=== PATIENT | female | born 1945 | race Caucasian/White ===

== ENCOUNTER 2018-11-26 01:07 | Observation (INO) | payer OTHER, BC ==
--- OUTSIDE RECORDS SUMMARY | 2018-11-26 01:10 | XMS REPORT ---
:1945 [facility] Address [address] [place] [address] Dr. Vincent [address] [place] [id number] Care Team Providers Name Role Phone Unavailable Unavailable Unavailable Problems This patient has no known problems. Allergies, Adverse Reactions, Alerts This patient has no known allergies or adverse reactions. Medications This patient has no known medications.
[2018-11-26] MEDS ORDERED: HYDROCODONE/APAP 7.5/325 MG TAB ONE (01:59)
[2018-11-26 02:09] LABS: Absolute Lymphocytes (CBC) 2.1 K/uL (0.7-4.9); Absolute Monocytes 0.5 K/uL (0.1-1.3); Absolute Neutrophil 5.9 K/uL (1.8-8.0); Eosinophils % 4.2 % (0-4.4); Hematocrit 42.2 % (36.0-45.0); Lymphocytes % 23.1 % (15.3-44.8); MPV 7.3 fL (7.6-11.3); RBC Red Blood Cell Count 4.45 M/uL (3.86-4.86)
[2018-11-26 02:23] LABS: Potassium 3.7 mmol/L (3.5-5.1)
--- NOTE | 2018-11-26 04:15 | EDPHYS ---
Physician Documentation [facility] Name: Chacha Valerio Age: 73 yrs Sex: Female : 1945 Arrival Date: 11/26/2018 Time: 01:12 Bed 8 Private MD: ED Physician Eric Aparicio HPI: 11/26 01:42 This 73 yrs old Female presents to ER via Ambulatory with complaints of Leg pkl Swelling, Leg Pain, knee swelling. 01:42 The patient presents with pain, that is acute, swelling. The complaints affect the left pkl leg. Onset: The symptoms/episode began/occurred today. Associated signs and symptoms: The patient has no apparent associated signs or symptoms. The patient has not experienced similar symptoms in the past. Historical: - Allergies: 01:32 Codeine; ed1 01:32 Levaquin; ed1 01:32 Sulfa (Sulfonamide Antibiotics); ed1 - Home Meds: 01:32 diltiazem HCl 180 mg Oral CDER 1 cap once daily [Active]; losartan-hydrochlorothiazide ed1 100-12.5 mg Oral tab 1 tab once daily [Active]; setraline 100 mg 1 tab daily [Active]; levothyroxine 25 mcg tab 1 tab once daily [Active]; lovastatin 10 mg Oral tab 1 tab once daily [Active]; metformin 850 mg Oral tab 1 tab 1 time daily [Active]; trazodone 150 mg oral tab 1 tab daily [Active]; ProAir HFA 90 mcg/actuation inhalation HFAA as needed [Active]; Advair Diskus 250-50 mcg/dose Inhl dsdv 1 puff 2 times per day [Active]; Decara 50,000 unit oral cap once a month [Active]; Citracal Oral daily [Active]; - PMHx: 01:32 Diabetes - NIDDM; Hypertension; COPD; Hypothyroidism; ed1 - PSHx: 01:32 Hysterectomy; Lumbar spine back surgery; neck surgery; breast augmentation; breast ed1 implant removal; foot surgery; - Immunization history:: Adult Immunizations up to date, Flu vaccine is up to date. - Social history:: Smoking status: Patient/guardian denies using tobacco. - Ebola Screening: : Patient negative for fever greater than or equal to 101.5 degrees Fahrenheit, and additional compatible Ebola Virus Disease symptoms Patient denies exposure to infectious person Patient denies travel to an Ebola-affected area in the 21 days before illness onset No symptoms or risks identified at this time. ROS: 01:42 Eyes: Negative for injury, pain, redness, and discharge, ENT: Negative for injury, pkl pain, and discharge, Neck: Negative for injury, pain, and swelling, Cardiovascular: Negative for chest pain, palpitations, and edema, Respiratory: Negative for shortness of breath, cough, wheezing, and pleuritic chest pain, Abdomen/GI: Negative for abdominal pain, nausea, vomiting, diarrhea, and constipation, Back: Negative for injury and pain, : Negative for injury, bleeding, discharge, and swelling. 01:42 MS/extremity: Positive for pain, swelling, of the left leg. 01:42 Skin: Negative for rash. 01:42 Neuro: Negative for altered mental status. Exam: 01:45 Head/Face: Normocephalic, atraumatic. Eyes: Pupils equal round and reactive to light, pkl extra-ocular motions intact. Lids and lashes normal. Conjunctiva and sclera are non-icteric and not injected. Cornea within normal limits. Periorbital areas with no swelling, redness, or edema. ENT: Nares patent. No nasal discharge, no septal abnormalities noted. Tympanic membranes are normal and external auditory canals are clear. Oropharynx with no redness, swelling, or masses, exudates, or evidence of obstruction, uvula midline. Mucous membranes moist. Neck: Trachea midline, no thyromegaly or masses palpated, and no cervical lymphadenopathy. Supple, full range of motion without nuchal rigidity, or vertebral point tenderness. No Meningismus. Chest/axilla: Normal chest wall appearance and motion. Nontender with no deformity. No lesions are appreciated. Cardiovascular: Regular rate and rhythm with a normal S1 and S2. No gallops, murmurs, or rubs. Normal PMI, no JVD. No pulse deficits. Respiratory: Lungs have equal breath sounds bilaterally, clear to auscultation and percussion. No rales, rhonchi or wheezes noted. No increased work of breathing, no retractions or nasal flaring. Abdomen/GI: Soft, non-tender, with normal bowel sounds. No distension or tympany. No guarding or rebound. No evidence of tenderness throughout. Back: No spinal tenderness. No costovertebral tenderness. Full range of motion. Skin: Warm, dry with normal turgor. Normal color with no rashes, no lesions, and no evidence of cellulitis. Neuro: Awake and alert, GCS 15, oriented to person, place, time, and situation. Cranial nerves II-XII grossly intact. Motor strength 5/5 in all extremities. Sensory grossly intact. Cerebellar exam normal. Normal gait. 01:45 Musculoskeletal/extremity: Extremities: grossly normal except: noted in the left leg: pain, swelling. Vital Signs: 01:32 BP 128 / 68; Pulse 103; Resp 18; Temp 98.1; Pulse Ox 94% on R/A; Pain 4/10; ed1 02:44 BP 141 / 72; Pulse 84; Resp 16; Pulse Ox 92% on R/A; Pain 4/10; ed1 04:00 BP 130 / 73; Pulse 71; Resp 16; Pulse Ox 96% on R/A; Pain 3/10; ed1 MDM: 01:19 Patient medically screened. pkl 04:13 Data reviewed: vital signs, nurses notes, lab test result(s), radiologic studies, pkl ultrasound. 11/26 01:32 Order name: CBC with Diff; Complete Time: 02:43 pkl 11/26 01:32 Order name: Chem 7; Complete Time: 02:43 pkl 11/26 01:32 Order name: D-Dimer; Complete Time: 02:43 pkl 11/26 01:37 Order name: US Extremity Venous Unilateral Ltd pkl 11/26 04:39 Order name: VENOGRAM EDMS Administered Medications: 01:51 Drug: [place] (7.5 mg-325 mg) 1 tabs Route: PO; ed1 02:45 Follow up: Response: No adverse reaction; Pain is decreased ed1 Disposition: 11/26/18 04:15 Hospitalization ordered by Yamil Cherry for Observation. Preliminary diagnosis is Acute swelling left leg. - Bed requested for Telemetry/MedSurg (observation). - Status is Observation. sv - Condition is Stable. - Problem is new. - Symptoms are unchanged. UTI on Admission? No Signatures: Dispatcher [employer] EDMS Chantel Castaneda RN RN kl Verde, Stephanie, RN RN sv Lam, Pin, MD MD pkAvani Singh RN RN Rita Holt RN RN ed1 Corrections: (The following items were deleted from the chart) 04:57 04:15 Hospitalization Ordered by Yamil Cherry MD for Observation. Preliminary fc diagnosis is Acute swelling left leg. Bed requested for Telemetry/MedSurg (observation). Status is Observation. Condition is Stable. Problem is new. Symptoms are unchanged. UTI on Admission? No. pkl 06:34 04:57 11/26/2018 04:15 Hospitalization Ordered by Yamil Cherry MD for Observation. kl Preliminary diagnosis is Acute swelling left leg. Bed requested for [facility] ER HOLD. Status is Observation. Condition is Stable. Problem is new. Symptoms are unchanged. UTI on Admission? No. fc 07:45 06:34 11/26/2018 04:15 Hospitalization Ordered by Yamil Cherry MD for Observation. sv Preliminary diagnosis is Acute swelling left leg. Bed requested for Telemetry/MedSurg (observation). Status is Observation. Condition is Stable. Problem is new. Symptoms are unchanged. UTI on Admission? No. kl
--- NOTE | 2018-11-26 04:15 | ER ---
Nurse's Notes [facility] Name: Chacha Valerio Age: 73 yrs Sex: Female : 1945 Arrival Date: 11/26/2018 Time: 01:12 Bed 8 Private MD: Diagnosis: Acute swelling left leg Presentation: 11/26 01:24 Presenting complaint: Patient states: My left leg has been aching some and we went out ed1 dancing and now it is very swollen and painful. Transition of care: patient was not received from another setting of care. Onset of symptoms was November 25, 2018. Risk Assessment: Do you want to hurt yourself or someone else? Patient reports no desire to harm self or others. Initial Sepsis Screen: Does the patient meet any 2 criteria? No. Patient's initial sepsis screen is negative. Does the patient have a suspected source of infection? No. Patient's initial sepsis screen is negative. Care prior to arrival: None. 01:24 Method Of Arrival: Ambulatory ed1 01:24 Acuity: RIAN 3 ed1 Triage Assessment: :32 General: Appears uncomfortable, Behavior is calm, cooperative. Pain: Complains of pain ed1 in left leg Pain does not radiate. Pain currently is 4 out of 10 on a pain scale. Quality of pain is described as pressure, Pain began 1 day ago. Is continuous, Aggravated by weight bearing. EENT: No signs and/or symptoms were reported regarding the EENT system. Neuro: Level of Consciousness is awake, alert, obeys commands, Oriented to person, place, time, situation, Denies weakness blurred vision dizziness, headache. Cardiovascular: Denies chest pain, Heart tones S1 S2 present. Respiratory: Airway is patent Respiratory effort is even, unlabored, Respiratory pattern is regular, symmetrical, Breath sounds are clear bilaterally. Denies cough, shortness of breath. GI: No signs and/or symptoms were reported involving the gastrointestinal system. : No signs and/or symptoms were reported regarding the genitourinary system. Derm: Skin is intact, is healthy with good turgor, Skin is pink, warm \T\ dry. Musculoskeletal: Circulation, motion, and sensation intact. Capillary refill < 3 seconds, in bilateral toes. Range of motion: intact in all extremities, Swelling present in left leg. Historical: - Allergies: 01:32 Codeine; ed1 01:32 Levaquin; ed1 01:32 Sulfa (Sulfonamide Antibiotics); ed1 - Home Meds: 01:32 diltiazem HCl 180 mg Oral CDER 1 cap once daily [Active]; losartan-hydrochlorothiazide ed1 100-12.5 mg Oral tab 1 tab once daily [Active]; setraline 100 mg 1 tab daily [Active]; levothyroxine 25 mcg tab 1 tab once daily [Active]; lovastatin 10 mg Oral tab 1 tab once daily [Active]; metformin 850 mg Oral tab 1 tab 1 time daily [Active]; trazodone 150 mg oral tab 1 tab daily [Active]; ProAir HFA 90 mcg/actuation inhalation HFAA as needed [Active]; Advair Diskus 250-50 mcg/dose Inhl dsdv 1 puff 2 times per day [Active]; Decara 50,000 unit oral cap once a month [Active]; Citracal Oral daily [Active]; - PMHx: 01:32 Diabetes - NIDDM; Hypertension; COPD; Hypothyroidism; ed1 - PSHx: 01:32 Hysterectomy; Lumbar spine back surgery; neck surgery; breast augmentation; breast ed1 implant removal; foot surgery; - Immunization history:: Adult Immunizations up to date, Flu vaccine is up to date. - Social history:: Smoking status: Patient/guardian denies using tobacco. - Ebola Screening: : Patient negative for fever greater than or equal to 101.5 degrees Fahrenheit, and additional compatible Ebola Virus Disease symptoms Patient denies exposure to infectious person Patient denies travel to an Ebola-affected area in the 21 days before illness onset No symptoms or risks identified at this time. Screenin:36 Abuse screen: Denies threats or abuse. Denies injuries from another. Nutritional ed1 screening: No deficits noted. Tuberculosis screening: No symptoms or risk factors identified. Fall Risk None identified. Assessment: 01:36 General: See triage assessment. ed1 02:44 Reassessment: Patient appears in no apparent distress at this time. No changes from ed1 previously documented assessment. Patient and/or family updated on plan of care and expected duration. Pain level reassessed. Patient is alert, oriented x 3, equal unlabored respirations, skin warm/dry/pink. 04:00 Reassessment: Patient appears in no apparent distress at this time. Patient and/or ed1 family updated on plan of care and expected duration. Pain level reassessed. Patient is alert, oriented x 3, equal unlabored respirations, skin warm/dry/pink. Patient states feeling better. Patient states symptoms have improved. Vital Signs: 01:32 BP 128 / 68; Pulse 103; Resp 18; Temp 98.1; Pulse Ox 94% on R/A; Pain 4/10; ed1 02:44 BP 141 / 72; Pulse 84; Resp 16; Pulse Ox 92% on R/A; Pain 4/10; ed1 04:00 BP 130 / 73; Pulse 71; Resp 16; Pulse Ox 96% on R/A; Pain 3/10; ed1 ED Course: 01:12 Patient arrived in ED. es 01:19 Eric Aparicio MD is Attending Physician. pkl 01:24 Rita Holt, ABBY is Primary Nurse. ed1 01:25 Triage completed. ed1 01:32 Arm band placed on. ed1 01:36 Patient has correct armband on for positive identification. Placed in gown. Bed in low ed1 position. Call light in reach. Side rails up X 1. Adult w/ patient. Pulse ox on. NIBP on. Warm blanket given. 02:30 Ultrasound completed. Patient tolerated well. Notified ED Physician clau. sg3 02:30 US Extremity Venous Unilateral Ltd In Process Unspecified. EDMS 04:00 Lights dimmed. Warm blanket given. Pillow given. ed1 04:14 Yamil Cherry MD is Hospitalizing Provider. pkl 04:28 No provider procedures requiring assistance completed. ed1 06:11 Inserted saline lock: 20 gauge in right forearm, using aseptic technique. Patient ed1 admitted, IV remains in place. intact, No redness/swelling at site. 06:56 Primary Nurse role handed off by Rita Holt, ABBY ed1 Administered Medications: 01:51 Drug: [place] (7.5 mg-325 mg) 1 tabs Route: PO; ed1 02:45 Follow up: Response: No adverse reaction; Pain is decreased ed1 Outcome: 04:15 Decision to Hospitalize by Provider. pkl 04:27 Admitted to ER Hold. Please see [facility] for further documentation. ed1 04:27 Condition: stable 04:27 Discharge instructions given to patient, family, Instructed on the need for admit, Demonstrated understanding of instructions. 07:45 Patient left the ED. sv Signatures: Dispatcher [employer] Luzma Burnette RN RN sv Lam, Pin, MD MD pkl Salyer, Edna es Riggs, Erika, RN RN ed1 Lennie Wang3
[2018-11-26] MEDS ORDERED: ACETAMINOPHEN 500 MG TAB PO PRN (05:02)
[2018-11-26] MEDS ORDERED: ONDANSETRON 4 MG/2 ML VIAL IV PRN (05:02)
[2018-11-26] MEDS ORDERED: ALBUTEROL 2.5 MG/3 ML NEB SOL NEB PRN (05:02)
[2018-11-26] MEDS ORDERED: IPRATROPIUM BROM 0.5MG/2.5ML NEB PRN (05:02)
--- NOTE | 2018-11-26 05:05 | P.HP ---
Certification for Inpatient Patient admitted to: Observation With expected LOS: <2 Midnights Practitioner: I am a practitioner with admitting privileges, knowledge of patient current condition, hospital course, and medical plan of care. Services: Services provided to patient in accordance with Admission requirements found in Title 42 Section 412.3 of the Code of Federal Regulations Patient History Date of Service: 11/26/18 Reason for admission: left leg edema History of Present Illness: Ms Valerio is a 73 years old woman with history of COPD, DM II, HTN, who last night noticed that her left leg start to be swollen. At this time, she did not have any pain. Then, she went to dance, and the leg become even more swollen. She denied pain, but has had cramps. No history of trauma. No fever or chills. She denied long trip or spent long periods of immobilization. Lab work shows normal WBC count, and elevated D-dimer. Subsequent doppler US of left leg was negative for DVT. She has never had this symptoms in the past. Allergies codeine Allergy (Unknown, Verified 09/01/16 02:48) Itching/Hives/Rash levofloxacin Allergy (Unknown, Verified 09/01/16 02:48) Itching/Hives/Rash Sulfa (Sulfonamide Antibiotics) Allergy (Unknown, Verified 09/01/16 02:48) Itching/Hives/Rash Home Medications: Albuterol Sulfate [Proair Hfa] 2 puff IH PRN PRN 09/01/16 Diltiazem HCl [Cartia Xt] 180 mg PO BEDTIME 09/01/16 Fluticasone/Salmeterol [Advair 250/50 Diskus*] 1 puff IH DAILY 09/01/16 Levothyroxine Sodium 25 mcg PO BEDTIME 09/01/16 Losartan/Hydrochlorothiazide [Losartan-Hctz 100-12.5 mg Tab] 1 tab PO BEDTIME Lovastatin 10 mg PO BEDTIME 09/01/16 Metformin HCl 850 mg PO BEDTIME 09/01/16 Sertraline [Zoloft*] 100 mg PO BEDTIME 09/01/16 Trazodone [Desyrel*] 150 mg PO BEDTIME PRN 09/01/16 Tiotropium [Spiriva Handihaler] 1 puff IH DAILY #30 cap.w.dev 09/03/16 predniSONE [Deltasone*] 10 mg PO SEECOM #11 tab 09/03/16 - Past Medical/Surgical History Diabetic: Yes -: Htn -: COPD -: hypothyroism -: NIDDM -: Bunionectomy repiar with bone graft x2 -: Spinal sx -: Articifial disc -: Breast implants removed - Family History Mother -: Diabetes Notes: alzeheimers Father -: Hypertension, Lung disease, Cancer Sister -: Other (see notes) Notes: spinal sx - Social History Smoking Status: Former smoker Alcohol use: Yes CD- Drugs: No Caffeine use: Yes Place of Residence: Home Review of Systems 10-point ROS is otherwise unremarkable Physical Examination - Physical Exam General: Alert, In no apparent distress HEENT: Atraumatic, PERRLA, Mucous membr. moist/pink, EOMI, Sclerae nonicteric Neck: Supple, 2+ carotid pulse no bruit, No LAD, Without JVD or thyroid abnormality Respiratory: Clear to auscultation bilaterally, Normal air movement Cardiovascular: Regular rate/rhythm, Normal S1 S2 Gastrointestinal: Normal bowel sounds, No tenderness Musculoskeletal: No tenderness Integumentary: No rashes, Tenderness/swelling (left leg) Neurological: Normal speech, Normal strength at 5/5 x4 extr, Normal tone, Normal affect Lymphatics: No axilla or inguinal lymphadenopathy - Studies Laboratory Data (last 24 hrs) 11/26/18 01:49: Sodium 137, Potassium 3.7, BUN 18, Creatinine 1.06, Glucose 160 H 11/26/18 01:49: WBC 8.9, Hgb 14.0, Hct 42.2, Plt Count 257 Assessment and Plan - Problems (Diagnosis) (1) Diabetes mellitus Current Visit: Yes Status: Acute Qualifiers: Diabetes mellitus type: type 2 Diabetes mellitus terminal block assembler insulin use: without terminal block assembler use Diabetes mellitus complication status: with unspecified complications Qualified Code(s): E11.8 - Type 2 diabetes mellitus with unspecified complications (2) Leg edema, left Current Visit: Yes Status: Acute (3) COPD (chronic obstructive pulmonary disease) Current Visit: Yes Status: Acute Qualifiers: COPD type: unspecified COPD Qualified Code(s): J44.9 - Chronic obstructive pulmonary disease, unspecified - Plan Will admit the patient due to left lower extremity edema. Doppler US was negative for DVT, however, she has elevated D-dimer and an intermediate pre- test for DVT. Will go ahead and order a CT venogram to definitively rule out thrombotic episode. - Advance Directives Does patient have a Living Will: No Does patient have a Durable POA for Healthcare: Yes - Code Status/Comfort Care Code Status Assessed: Yes Code Status: Full Code
[2018-11-26 05:46] VITALS: BMI 27.8
[2018-11-26] MEDS: INSULIN -REGULAR HUMAN 50 UNIT/0.5 ML ML SQ SCH ×4 (07:30→21:00)
--- NOTE | 2018-11-26 07:49 | RAD REPORT ---
EXAM DESCRIPTION: CT - Lower Ext Angio - 11/26/2018 7:00 am CLINICAL HISTORY: Left lower extremity pain with exertion COMPARISON: None. TECHNIQUE: During dynamic enhancement using nonionic IV contrast, axial 3 millimeter thick images we re obtained from the lower chest through the ankles. Sagittal and coronal reformatted images were gen erated and reviewed using maximum intensity projection protocol. The CT scan was performed using dose optimization techniques as appropriate to a performed exam incl uding one or more of the following: Automated exposure control, adjustment of the mA and/or kV accord ing to patient size (this includes techniques or standardized protocols for targeted exams where dose is matched to indication/reason for exam) and use of iterative reconstruction technique. FINDINGS: Patient has prominent infrarenal aortic atherosclerotic calcifications without aneurysm or dissection. No significant stenosis identified in the celiac, SMA or renal artery's. Atherosclerotic calcifications are present. There is mural thrombus along the posterior wall of the aorta at the jaycee al vascular level. Significant atherosclerotic changes are present at the left common iliac -external iliac artery junct ion. This is probably less than 50%. There is more significant atherosclerotic change at the origin o f the right common iliac artery estimated at 60- 70%. Atherosclerotic calcifications are present at the right side external iliac -common femoral artery ju nction with estimated 40% stenosis. The right common femoral artery, superficial femoral artery and p opliteal artery showed no abnormality. There is three-vessel runoff bifurcation at the distal poplite al artery with no calcification, stenosis or significant finding. The left common femoral, superficia l femoral and popliteal arteries also without any measurable calcification or stenosis. Trifurcation of the popliteal artery noted. Dorsalis pedis artery is difficult to identify at the ankle joint. Pos terior tibial and peroneal arteries unremarkable. No atherosclerotic change is identifiable. No extravasation of contrast. No vascular malformation. No intra muscular mass or hematoma identifiab le. Left calf musculature is edematous relative to the right side. There is subtle enlargement althou gh all the left lower extremity musculature relative to the right mid No focal abnormality seen. Ther e is edema in the subcutaneous fatty tissues of the left lower extremity from ankle joint superiorly to the upper thigh. No air, foreign body or focal finding within the subcutaneous fat of the left low er extremity. Lower lung elise show no suspicious findings. Fatty infiltration of the liver is noted. Gallbladder is absent. Bowel and solid abdominal viscera show no acute findings. No bladder abnormality seen. Extensive degenerative and postsurgical changes are present in the mid and lower lumbar spine. No acu te or pathologic bone process identifiable. Bone cyst is present in the posterior right calcaneus. IMPRESSION: No arterial occlusion, contrast extravasation or other acute arterial finding. Atherosclerotic calcifications are present at the left common iliac -external iliac artery junction e stimated at less than 50%. There is no measurable calcification, stenosis or significant vascular fin ding from the left common femoral artery through the ankle. Significant atherosclerotic calcifications causing stenosis at the origin of the right common iliac a rtery estimated at 60-70% with probable 40% stenosis at the right external iliac-common femoral arter y junction. No measurable calcification or stenosis of the right lower extremity from common femoral artery through the ankle. Left-sided calf edema and moderate congestion or edema in the subcutaneous fatty tissues of the left lower extremity from proximal thigh through the ankle. There is a more subtle overall enlargement of the entire left lower extremity skeletal musculature relative to the right. There is no intramuscular hematoma, mass or other focal left lower extremity finding. Extensive degenerative and postsurgical change in the mid and lower lumbar spine with probable centra l spinal stenosis at L3-4. Additional nonacute findings detailed in the body of the report.
--- NOTE | 2018-11-26 08:03 | RAD REPORT ---
EXAM DESCRIPTION: US - Extremity Venous Uni Ltd - 11/26/2018 2:31 am CLINICAL HISTORY: Left leg edema and pain COMPARISON: None. TECHNIQUE: Real-time sonographic evaluation of the left lower extremity deep venous system was perfo rmed. FINDINGS: Normal compressibility, flow augmentation, phasic flow and spontaneous flow are identified in the left lower extremity common femoral, superficial femoral, popliteal and posterior tibial vein s. No intraluminal filling defects seen. IMPRESSION: No DVT in the left lower extremity.
[2018-11-26] MEDS ORDERED: POTASSIUM 25 MEQ EFFERV TAB PO ONE (09:00)
[2018-11-26] MEDS ORDERED: D50W 25 GM/50 ML SYRINGE IV PRN (09:57)
[2018-11-26] MEDS ORDERED: GLUCAGON 1 MG/VIAL IM PRN (09:57)
[2018-11-26] MEDS: ENOXAPARIN 80 MG/0.8 ML SQ SCH ×2 (10:13→22:07)
[2018-11-26] MEDS: HYDROCODONE/APAP 7.5/325 MG TAB PO PRN ×3 (10:13→22:07)
[2018-11-26] MEDS ORDERED: TRAZODONE 150 MG TAB PO PRN (10:40)
--- NOTE | 2018-11-26 14:28 | CON ---
History Of Present Illness: Ms. Valerio is 73. She came to the hospital with swelling of her left l eg and the doctors immediately thought she might have a deep vein thrombosis, but an extremity venous study does not reveal a DVT. I am asked to see her because of the possibility of this being due to arterial disease. She does not have claudication. She does not have much in the way of pain, but it feels tight with the swelling. She has never had a clot before and never been diagnosed with periph eral vascular disease before. Lower extremities CT angio reveals iliac disease. It is in the 70% ra nge, not 99%. The patient was a cigarette smoker, but quit 8 months ago. She is allergic to sulfa d rugs and codeine. She takes sertraline, trazodone, Advair, metformin, lovastatin, losartan, hydrochl orothiazide, levothyroxine, diltiazem, albuterol. She has underlying COPD, diabetes, hypertension. Physical Examination: General: Height 5 feet 3 inches, weight 157 pounds. HEENT: Normal. Lungs: Clear. I do not appreciate a femoral bruit. Distal pulses are present in the left foot. Extremities: The left foot is slightly reddened. It is warm. Does not appear to be cellulitis and I would be very concerned that perhaps she has embolized the micro vessels or this is actually a DVT i n spite of the normal venous Doppler study. It is possible to miss DVT, although unlikely. Assessment And Plan: I would recommend full anticoagulation for a few days if it gets better. If not , we can proceed with an arteriogram and see if there is evidence of emboli. A CT angio did not sugg est there was significant stenosis in the femoral, popliteal, or arteries below the knee. SHANIQUA/RAY Voice ID: [id number] Report ID: [id number]
--- NOTE | 2018-11-26 16:10 | PN ---
Date of Progress Note: 11/26/2018 Patient seen and examined. Chart reviewed and case discussed with RN and Dr. Aguilera. The patient an d daughter at the bedside. Treatment plan explained. All questions answered. The patient does repor t some swelling and pain in the back of her left leg. Denies any trauma. Medications: List reviewed. Physical Examination: Vital Signs: Temperature 97.2, heart rate 80, blood pressure 136/63, respirations 18, O2 94% on room air. General: Awake, alert, oriented x3. Elderly female, in some mild distress. CV: S1, S2. Peripheral pulses in the radial artery present bilaterally. Dorsalis pedis, 2+ on the r ight, 1+ on the left. Respiratory: Clear to auscultation bilaterally. No wheezing or stridor. No use of accessory muscle s. Gastrointestinal: Abdomen is soft, nontender, nondistended. Positive bowel sounds. No guarding or r igidity. Extremities: No clubbing or cyanosis. The patient has left lower extremity unilateral edema. Does have some tenderness. Musculoskeletal: Gait is normal. Neuro: Cranial nerves 2 through 12 intact grossly. No focal neurological deficit. The patient does have some decreased sensation in the left lower extremity. Skin: No rashes. Normal skin turgor. Left lower extremity erythema. Laboratory Data: Sodium 137, potassium 3.7, chloride 103, CO2 26, BUN 18, creatinine 1.06, glucose 1 60, calcium 9.3. WBC 8.9, H and H 14 and 42.2, platelets 257. Venous Doppler shows no DVT in the le ft lower extremity. Lower extremities CT angio shows mural thrombus along the posterior wall of the aorta at the renal vascular level. Significant atherosclerotic changes at the left common iliac, ext ernal iliac artery junction, estimated less than 50%. No arterial occlusion, contract extravasation or other acute arterial finding. Significant atherosclerotic calcification causing stenosis of the or igin of the right common iliac artery estimated at 60-70 percent with probable 40% stenosis of the ri ght external iliac-common femoral artery junction. Left-sided calf edema and moderate congestion or e alexys in the subcutaneous fatty tissues of the left lower extremity from proximal thigh through the an kle. Overall enlargement of the entire left lower extremity skeletal musculature relative to the rig ht. No intramuscular hematoma, mass or other focal left extremity finding. Extensive degenerative c hanges of the lower spine and central spinal stenosis at the L3-4 level. Assessment And Plan: A 73-year-old female with: 1.Left lower extremity edema, DVT ruled out, unclear etiology. No hematoma. No arterial occlusion. Does have mural thrombus along the posterior wall of the aorta at the renal vascular level. We alexia l continue with Lovenox 1 mg/kg and have Cardiology evaluate the patient for possible angiogram and i ntervention. 2.Chronic obstructive pulmonary disease, chronic bronchitis, stable. Continue p.r.n. albuterol. 3.Diabetes mellitus type 2 with long-term use of insulin with hyperglycemia. We will hold metformin for now due to contrast. Continue sliding scale insulin. 4.Essential hypertension. Continue home medications as appropriate. 5.Hypothyroidism. Continue Synthroid. 6.Peripheral arterial disease. No significant arterial occlusions seen. We will check arterial Dop pler and neurovascular checks. GI and DVT prophylaxis addressed. GENET Voice ID: [id number] Report ID: [id number]
[2018-11-26 16:50] LABS: Urine Appearance CLEAR; Urine Bilirubin NEGATIVE (NEG); Urine Blood NEGATIVE (NEG); Urine Color YELLOW; Urine Glucose NEGATIVE (NEG); Urine Protein NEGATIVE (NEG); Urine Urobilinogen 0.2 mg/dL (0.2-1.0); Urine pH 5.5 (5.0-7.0)
[2018-11-26 16:51] LABS: Urine Microscopic Reflex ORDER UMIC
[2018-11-26 17:19] LABS: Urine Bacteria <20 /HPF (<20); Urine RBC <5 /HPF (NONE SEEN)
[2018-11-26 17:20] LABS: Urine Culture Reflex Order REFLEXED
[2018-11-26] MEDS ORDERED: DILTIAZEM HCL 180 MG SR CAP PO SCH (21:00)
[2018-11-26] MEDS ORDERED: SERTRALINE HCL 100 MG TAB PO SCH (21:00)
[2018-11-26] MEDS ORDERED: HOME MED 1 EA UNK (Lovastatin [Lovastatin] 10 MG) PO SCH (21:00)
[2018-11-26] MEDS ORDERED: HOME MED 1 EA UNK (Losartan/Hydrochlorothiazide [Losartan-Hctz 100-12.5 Mg Tab] 1 TAB) PO SCH (21:00)
[2018-11-26] MEDS ORDERED: LOSARTAN/HCTZ 50-12.5 PO SCH (21:00)
[2018-11-26] MEDS ORDERED: ATORVASTATIN 10 MG TAB PO SCH (21:00)
[2018-11-26] MEDS ORDERED: LOSARTAN POTASSIUM 50 MG TABLET PO SCH (21:00)
[2018-11-27] MEDS: HYDROCODONE/APAP 7.5/325 MG TAB PO PRN (05:42)
[2018-11-27 06:05] LABS: Absolute Lymphocytes (CBC) 2.7 K/uL (0.7-4.9); Absolute Monocytes 0.4 K/uL (0.1-1.3); Absolute Neutrophil 1.5 K/uL (1.8-8.0); Basophils % 2.1 % (0-1.3); Hematocrit 41.4 % (36.0-45.0); Lymphocytes % 51.2 % (15.3-44.8); MPV 7.6 fL (7.6-11.3); Monocytes % 8.5 % (3.3-12.3); RBC Red Blood Cell Count 4.39 M/uL (3.86-4.86)
[2018-11-27 06:29] LABS: Albumin 3.2 g/dL (3.4-5.0); Bilirubin Total 0.5 mg/dL (0.2-1.0); Magnesium 1.8 mg/dL (1.8-2.4); Potassium 4.4 mmol/L (3.5-5.1)
[2018-11-27] MEDS ORDERED: LEVOTHYROXINE SOD 0.025 MG TAB PO SCH (06:30)
[2018-11-27] MEDS: INSULIN -REGULAR HUMAN 50 UNIT/0.5 ML ML SQ SCH ×2 (07:30→11:30)
[2018-11-27] MEDS ORDERED: NA CHLORIDE 0.9% 250 ML ONE (08:29)
[2018-11-27] MEDS ORDERED: MAGNESIUM SULFATE 1 gm IVPB 1 GM/100 ML BAG IV ONE (09:00)
[2018-11-27] MEDS ORDERED: HOME MED 1 EA UNK (Fluticasone/Salmeterol [Advair 250/50 Diskus*] 2 PUFF) IH SCH (09:00)
[2018-11-27] MEDS: ENOXAPARIN 80 MG/0.8 ML SQ SCH (09:29)
[2018-11-27] MEDS ORDERED: HYDROCODONE/APAP 7.5/325 MG TAB PO ONE (09:43)
[2018-11-27] MEDS ORDERED: GABAPENTIN 100 MG CAP PO ONE (10:47)
[2018-11-27 11:00] VITALS: O2SAT 95
--- NOTE | 2018-11-27 11:57 | RAD REPORT ---
EXAM DESCRIPTION: US - Extremity Venous Uni Ltd - 11/27/2018 11:52 am CLINICAL HISTORY: DVT left lower ext, swelling, pain Leg swelling and edema. COMPARISON: Extremity Venous Uni Ltd dated 11/26/2018; Lower Ext Angio dated 11/26/2018 FINDINGS: Left lower extremity venous system was interrogated with Doppler technique. Normal flow, c ompressibility and augmentation was noted. There is no DVT present. IMPRESSION: No evidence of left lower extremity deep venous thrombosis.
[2018-11-27 12:29] VITALS: BP 120/58; TEMP 97.4
--- NOTE | 2018-11-28 03:06 | DS ---
Date of Discharge: 11/27/2018 Consultants: Rajinder Aguilera M.D., with Cardiology. Procedures: None. Discharge Diagnoses: 1. Left lower extremity edema, clinically presents as deep venous thrombosis despite negative Doppler study, improved with blood thinners. 2. Chronic obstructive pulmonary disease, chronic bronchitis, stable. 3. Diabetes mellitus type 2, with long-term use of insulin, with hyperglycemia. Hold metformin for 48 hours after contrast. 4. Essential hypertension. 5. Hypothyroidism, on Synthroid. 6. Peripheral arterial disease, lower extremities. The patient is to follow up with Dr. Aguilera for angiogram. Hospital Course: The patient is a 73-year-old female who comes in with acute onset of lower extremity edema on the left after dancing. The patient did have an elevated D-dimer. However, Doppler study was negative for DVT. Lower extremity CT angio did show significant arterial stenosis, but no arterial occlusion. The patient was neurovascularly intact. The patient was seen by Dr. Aguilera with Cardiology, who recommended outpatient angiogram for possible stenting. Overall, the patient did well. She was started on Lovenox and responded well to treatment. She does have family history of blood clots, specifically her dad who had multiple clots. She otherwise does not have any provoking factors including immobilization, recent surgery, cancer, or prolonged immobilization with long flight or car trip. The patient will be switched over to Xarelto 15 mg p.o. b.i.d. for 20 more days and switch over to 20 mg daily for 3 months. The patient is to be seen by Dr. Maxwell as outpatient. The patient will be provided contact information for Hematology for hypercoagulable workup. The patient has been counseled regarding the risks and benefits of blood thinners. She understands and at this clinical juncture, agrees to take blood thinners. Daughter is at the bedside. The patient is also given the option of Coumadin; however, does choose to be on Xarelto due to safety profile and due to lack of dietary restrictions on Xarelto. The patient was then cleared for discharge from Cardiology standpoint. She was sent home in a stable condition. Activity: As tolerated. Medications: As per medication reconciliation list. Followup: Follow up with primary care physician in 2 to 3 days. Follow up with human services worker, Dr. Maxwell, in 1 to 2 weeks. Follow up with jboss architect , Dr. Aguilera, in 2 weeks. Return to ER for worsening condition. Diet: Diabetic. Activity: As tolerated. Physical Examination: General: Awake, alert, and oriented x3. Elderly female, in no acute distress. CV: S1, S2. No murmurs. Respiratory: Moving air well bilaterally. Gastrointestinal: Abdomen is soft, nontender, and nondistended. Positive bowel sounds. Extremities: No clubbing or cyanosis. The patient does have left lower extremity edema. Neurologic: Nonfocal. Musculoskeletal: Left lower extremity is edematous, swollen, appears congested. Total time spent discharging the patient was 32 minutes. /RAY Voice ID: [id number] Report ID: [id number] MTDNelida
== END 2018-11-27 15:53 | disposition home or self-care (01) ==
LOC: ER 01:07 → ERHOLD 04:39 → 2ND 07:42
PROVIDERS: ADMIT Internal Medicine; ATTEND Internal Medicine
DX: R60.0 Localized edema (principal); J44.9 Chronic obstructive pulmonary disease, unspecified; E11.65 Type 2 diabetes mellitus with hyperglycemia; I10 Essential (primary) hypertension; E03.9 Hypothyroidism, unspecified; I73.9 Peripheral vascular disease, unspecified; Z79.4 Long term (current) use of insulin; Z88.2 Allergy status to sulfonamides
CPT/HCPCS: 36415 ×2; 73706; 80048; 80053; 80061; 82962 ×5; 83735; 84145; 85025 ×2; 85379; 86038; 87088; 93971 ×2; 99285; G0378 ×2; J1650 ×3; J3475; Q9967; 81003; 81015; 87086

== ENCOUNTER 2018-11-28 09:59 | Observation (INO) | payer OTHER, BC ==
--- OUTSIDE RECORDS SUMMARY | 2018-11-28 12:42 | XMS REPORT ---
:1945 [facility] Address [address] [place] [address] Dr. Vincent [address] [place] [id number] Care Team Providers Name Role Phone Unavailable Unavailable Unavailable Problems This patient has no known problems. Allergies, Adverse Reactions, Alerts This patient has no known allergies or adverse reactions. Medications This patient has no known medications.
[2018-11-28 12:56] VITALS: BMI 28.3
[2018-11-28] MEDS ORDERED: ONDANSETRON 4 MG/2 ML VIAL IV PRN (13:08)
[2018-11-28] MEDS ORDERED: ACETAMINOPHEN 500 MG TAB PO PRN (13:08)
[2018-11-28] MEDS ORDERED: GLUCAGON 1 MG/VIAL IM PRN (13:15)
[2018-11-28] MEDS ORDERED: D50W 25 GM/50 ML SYRINGE IV PRN (13:15)
[2018-11-28] MEDS ORDERED: ALBUTEROL INHALER 60 PUFF/8 GM IH PRN (13:16)
[2018-11-28] MEDS: ENOXAPARIN 80 MG/0.8 ML SQ SCH (13:55)
--- NOTE | 2018-11-28 15:57 | P.HP ---
Certification for Inpatient Patient admitted to: Observation With expected LOS: <2 Midnights Patient will require the following post-hospital care: None Practitioner: I am a practitioner with admitting privileges, knowledge of patient current condition, hospital course, and medical plan of care. Services: Services provided to patient in accordance with Admission requirements found in Title 42 Section 412.3 of the Code of Federal Regulations Patient History Date of Service: 11/28/18 Reason for admission: Anticoagulation History of Present Illness: The patient is a 73-year-old female Close with past medical history of diabetes , COPD, PAD who was recently admitted to the hospital and discharged on 2018 with a diagnosis of DVT and was started Xarelto. Patient was not able to afford getting anti coagulation as he was costing her over 400 dollars and thus she was admitted to the hospital for treatment of DVT with Coumadin and bridging with Lovenox. Initially patient presented to the ER during last hospitalization with acute onset of lower extremity edema on the left after dancing. The patient did have an elevated D-dimer. However, Doppler study was negative for DVT. Lower extremity CT angio did show significant arterial stenosis, but no arterial occlusion. The patient was seen by Dr. Aguilera with Cardiology, who recommended outpatient angiogram for possible stenting. She was started on Lovenox and responded well to treatment. She does have family history of blood clots, specifically her dad who had multiple clots. She otherwise does not have any provoking factors including immobilization, recent surgery, cancer, or prolonged immobilization with long flight or car trip. The patient was switched over to Xarelto. However since patient was not able to afford the prescribed medication she returned to the hospital for further treatment. Allergies levofloxacin Allergy (Severe, Verified 11/26/18 11:17) Itching/Hives/Rash sulfamethoxazole [From Bactrim] Allergy (Severe, Verified 11/26/18 11:17) Shortness of breath trimethoprim [From Bactrim] Allergy (Severe, Verified 11/26/18 11:17) Shortness of breath codeine Allergy (Unknown, Verified 09/01/16 02:48) Itching/Hives/Rash Sulfa (Sulfonamide Antibiotics) Allergy (Unknown, Verified 09/01/16 02:48) Itching/Hives/Rash Home Medications: Albuterol Sulfate [Proair Hfa] 1 puff IH Q4H PRN 11/28/18 Diltiazem HCl [Cartia Xt] 180 mg PO DAILY 11/28/18 Fluticasone/Salmeterol [Advair 250-50 Diskus] 1 each IH BID 11/28/18 Levothyroxine [Synthroid*] 0.025 mg PO DAILY 11/28/18 Losartan/Hydrochlorothiazide [Losartan-Hctz 100-12.5 mg Tab] 1 tab PO DAILY 10/04 Lovastatin 10 mg PO DAILY 11/28/18 Metformin HCl 850 mg PO DAILY 11/28/18 Sertraline [Zoloft] 100 mg PO DAILY 11/28/18 - Past Medical/Surgical History Has patient received pneumonia vaccine in the past: Yes Diabetic: Yes -: Htn -: COPD -: hypothyroism -: NIDDM -: Smoker -: Bunionectomy repair with bone graft x2 -: Spinal sx, lumbar back surgery -: Articifial disc -: Breast implants removed, breast augmentation -: hysterectomy -: colonoscopy - Family History Family History: Reviewed- Non-Contributory - Family History Mother -: Diabetes, Kidney disease, Other (see notes) Notes: alzheimers Father -: Hypertension, Lung disease, Cancer Sister -: Other (see notes) Notes: spinal sx - Social History Smoking Status: Former smoker Alcohol use: Yes CD- Drugs: No Caffeine use: Yes Place of Residence: Home Review of Systems 10-point ROS is otherwise unremarkable Physical Examination - Vital Signs Temperature: 97.6 F Blood Pressure: 134/61 Pulse: 65 Respirations: 18 Pulse Ox (%): 93 - Physical Exam General: Alert, In no apparent distress HEENT: Atraumatic, PERRLA, Mucous membr. moist/pink, EOMI, Sclerae nonicteric Neck: Supple, 2+ carotid pulse no bruit, No LAD, Without JVD or thyroid abnormality Respiratory: Clear to auscultation bilaterally, Normal air movement Cardiovascular: Regular rate/rhythm, Normal S1 S2 Gastrointestinal: Normal bowel sounds, No tenderness Musculoskeletal: No tenderness Integumentary: No rashes Neurological: Normal gait, Normal speech, Normal strength at 5/5 x4 extr, Normal tone, Normal affect Lymphatics: No axilla or inguinal lymphadenopathy Assessment and Plan - Problems (Diagnosis) (1) DVT (deep venous thrombosis) Current Visit: Yes Status: Acute Plan: Suspected left lower leg DVT. -initial ultrasound negative for DVT. -cardiology consulted. Appreciated recommendations -highly suspicious of DVT given the CTA results and clinical picture -start on anti coagulation. -patient currently not able to afford the newer drugs. -will bridge with Lovenox and start patient on Coumadin -will check INR Qualifiers: DVT location: lower extremity Affected thrombotic vein of extremity: unspecified lower extremity proximal vein Chronicity: acute Laterality: left Qualified Code(s): I82.4Y2 - Acute embolism and thrombosis of unspecified deep veins of left proximal lower extremity (2) COPD (chronic obstructive pulmonary disease) Current Visit: No Status: Chronic Qualifiers: COPD type: chronic bronchitis Chronic bronchitis type: mixed simple and mucopurulent Qualified Code(s): J41.8 - Mixed simple and mucopurulent chronic bronchitis (3) Diabetes mellitus Current Visit: No Status: Chronic Qualifiers: Diabetes mellitus type: type 2 Diabetes mellitus termite exterminator helper insulin use: without senior living use Diabetes mellitus complication status: without complication Qualified Code(s): E11.9 - Type 2 diabetes mellitus without complications Discharge Plan: Home Plan to discharge in: 48 Hours - Advance Directives Does patient have a Living Will: Yes Does patient have a Durable POA for Healthcare: Yes - Code Status/Comfort Care Code Status Assessed: Yes Critical Care: No
[2018-11-28] MEDS: INSULIN -REGULAR HUMAN 50 UNIT/0.5 ML ML SQ SCH ×2 (16:30→21:00)
[2018-11-28] MEDS: WARFARIN SODIUM 2.5 MG TAB PO SCH (16:39)
[2018-11-28] MEDS ORDERED: MORPHINE 4 MG/ML SYR IV PRN (19:17)
[2018-11-28] MEDS: HOME MED 1 EA UNK (Fluticasone/Salmeterol [Advair 250-50 Diskus] 1 EACH) IH SCH (21:00)
[2018-11-28] MEDS: ATORVASTATIN 10 MG TAB PO SCH (21:21)
[2018-11-28] MEDS: HYDROCODONE/APAP 7.5/325 MG TAB PO PRN (22:34)
[2018-11-28] MEDS: TRAZODONE 150 MG TAB PO PRN (22:34)
[2018-11-29] MEDS: HYDROCODONE/APAP 7.5/325 MG TAB PO PRN ×4 (04:11→22:23)
[2018-11-29 04:38] LABS: Protime INR 0.9
[2018-11-29 04:51] LABS: Albumin 3.6 g/dL (3.4-5.0); Bilirubin Total 0.3 mg/dL (0.2-1.0); Phosphorus 4.3 mg/dL (2.5-4.9); Potassium 4.8 mmol/L (3.5-5.1); Protein, Total 6.5 g/dL (6.4-8.2)
[2018-11-29 04:59] LABS: Absolute Lymphocytes (CBC) 2.8 K/uL (0.7-4.9); Absolute Monocytes 0.5 K/uL (0.1-1.3); Absolute Neutrophil 2.1 K/uL (1.8-8.0); Basophils % 2.7 % (0-1.3); Eosinophils % 8.1 % (0-4.4); Hematocrit 43.7 % (36.0-45.0); Lymphocytes % 46.6 % (15.3-44.8); MPV 7.7 fL (7.6-11.3); Monocytes % 7.5 % (3.3-12.3); RBC Red Blood Cell Count 4.62 M/uL (3.86-4.86)
[2018-11-29] MEDS: LEVOTHYROXINE SOD 0.025 MG TAB PO SCH (05:37)
[2018-11-29] MEDS: ENOXAPARIN 80 MG/0.8 ML SQ SCH ×2 (05:40→17:17)
[2018-11-29] MEDS: INSULIN -REGULAR HUMAN 50 UNIT/0.5 ML ML SQ SCH ×4 (07:30→21:00)
[2018-11-29] MEDS: HOME MED 1 EA UNK (Fluticasone/Salmeterol [Advair 250-50 Diskus] 1 EACH) IH SCH ×2 (08:13→21:00)
[2018-11-29] MEDS ORDERED: DILTIAZEM HCL 180 MG SR CAP PO SCH (09:00)
[2018-11-29] MEDS ORDERED: hydroCHLOROthiazide 12.5 MG CAP PO SCH (09:00)
[2018-11-29] MEDS ORDERED: HOME MED 1 EA UNK (Losartan/Hydrochlorothiazide [Losartan-Hctz 100-12.5 Mg Tab] 1 TAB) PO SCH (09:00)
[2018-11-29] MEDS ORDERED: SERTRALINE HCL 100 MG TAB PO SCH (09:00)
[2018-11-29] MEDS ORDERED: LOSARTAN POTASSIUM 50 MG TABLET PO SCH (09:00)
[2018-11-29] MEDS: WARFARIN SODIUM 2.5 MG TAB PO SCH (16:09)
--- NOTE | 2018-11-29 18:00 | P.PN ---
Subjective Date of Service: 11/29/18 Chief Complaint: Anticoagulation Patient seen and examined at bedside with RN. Chart reviewed. Case discussed with patient in case management at bedside. Review of Systems 10-point ROS is otherwise unremarkable Physical Examination - Vital Signs Temperature: 97.6 F Blood Pressure: 112/51 Pulse: 67 Respirations: 18 Pulse Ox (%): 96 - Physical Exam General: Alert, In no apparent distress HEENT: Atraumatic, PERRLA, EOMI Neck: Supple, JVD not distended Respiratory: Clear to auscultation bilaterally, Normal air movement Cardiovascular: Regular rate/rhythm, Normal S1 S2 Gastrointestinal: Normal bowel sounds, No tenderness Musculoskeletal: No tenderness Integumentary: No rashes Neurological: Normal speech, Normal tone, Normal affect Lymphatics: No axilla or inguinal lymphadenopathy - Studies Laboratory Data (last 24 hrs) 11/29/18 04:10: PT 10.7, INR 0.90, APTT 33.0 11/29/18 04:10: Sodium 143, Potassium 4.8, BUN 17, Creatinine 1.06, Glucose 129 H, Phosphorus 4.3, Magnesium 2.0, Total Bilirubin 0.3, AST 17, ALT 23, Alkaline Phosphatase 67 11/29/18 04:10: WBC 6.0 D, Hgb 14.5, Hct 43.7, Plt Count 266 Medications List Reviewed: Yes Assessment And Plan - Current Problems (Diagnosis) (1) DVT (deep venous thrombosis) Onset Date: 11/29/18 Current Visit: Yes Status: Acute Plan: Suspected left lower leg DVT. -initial ultrasound negative for DVT. -cardiology consulted. Appreciated recommendations -highly suspicious of DVT given the CTA results and clinical picture -start on anti coagulation. -patient currently not able to afford the newer drugs. -On Lovenox and patient on Coumadin -INR subtherapeutic today Qualifiers: DVT location: lower extremity Affected thrombotic vein of extremity: unspecified lower extremity proximal vein Chronicity: acute Laterality: left Qualified Code(s): I82.4Y2 - Acute embolism and thrombosis of unspecified deep veins of left proximal lower extremity (2) COPD (chronic obstructive pulmonary disease) Current Visit: No Status: Chronic Qualifiers: COPD type: chronic bronchitis Chronic bronchitis type: mixed simple and mucopurulent Qualified Code(s): J41.8 - Mixed simple and mucopurulent chronic bronchitis (3) Diabetes mellitus Current Visit: No Status: Chronic Qualifiers: Diabetes mellitus type: type 2 Diabetes mellitus fpc insulin use: without regional planner use Diabetes mellitus complication status: without complication Qualified Code(s): E11.9 - Type 2 diabetes mellitus without complications Discharge Plan: Home Plan to discharge in: 48 Hours - Code Status/Comfort Care Code Status Assessed: Yes Critical Care: No
[2018-11-29] MEDS: SERTRALINE HCL 100 MG TAB PO SCH (22:22)
[2018-11-29] MEDS: hydroCHLOROthiazide 12.5 MG CAP PO SCH (22:22)
[2018-11-29] MEDS: TRAZODONE 150 MG TAB PO PRN (22:24)
[2018-11-29] MEDS: LOSARTAN POTASSIUM 50 MG TABLET PO SCH (22:24)
[2018-11-29] MEDS: ATORVASTATIN 10 MG TAB PO SCH (22:25)
[2018-11-29] MEDS: DILTIAZEM HCL 180 MG SR CAP PO SCH (22:25)
[2018-11-30] MEDS: HYDROCODONE/APAP 7.5/325 MG TAB PO PRN ×3 (05:32→18:06)
[2018-11-30] MEDS: ENOXAPARIN 80 MG/0.8 ML SQ SCH ×2 (05:32→17:54)
[2018-11-30] MEDS: LEVOTHYROXINE SOD 0.025 MG TAB PO SCH (05:32)
[2018-11-30 05:52] LABS: Albumin 3.5 g/dL (3.4-5.0); Bilirubin Total 0.2 mg/dL (0.2-1.0); Magnesium 1.9 mg/dL (1.8-2.4); Phosphorus 4.5 mg/dL (2.5-4.9); Potassium 4.9 mmol/L (3.5-5.1); Protein, Total 6.3 g/dL (6.4-8.2)
[2018-11-30 05:54] LABS: Absolute Lymphocytes (CBC) 2.7 K/uL (0.7-4.9); Absolute Monocytes 0.5 K/uL (0.1-1.3); Absolute Neutrophil 1.9 K/uL (1.8-8.0); Basophils % 2.4 % (0-1.3); Hematocrit 43.2 % (36.0-45.0); Lymphocytes % 47.1 % (15.3-44.8); MPV 7.5 fL (7.6-11.3); Monocytes % 9.1 % (3.3-12.3); RBC Red Blood Cell Count 4.52 M/uL (3.86-4.86)
[2018-11-30 05:57] LABS: Protime INR 0.89
[2018-11-30] MEDS: INSULIN -REGULAR HUMAN 50 UNIT/0.5 ML ML SQ SCH ×4 (07:30→21:00)
[2018-11-30] MEDS: HOME MED 1 EA UNK (Fluticasone/Salmeterol [Advair 250-50 Diskus] 1 EACH) IH SCH ×2 (09:00→21:00)
[2018-11-30 09:55] LABS: Blood Morphology Comment NOT SEEN (NOT SEEN); Platelet Estimate ADEQ; Urine White Blood Cell Casts DIFF
--- NOTE | 2018-11-30 16:38 | P.PN ---
Subjective Date of Service: 11/30/18 Chief Complaint: Anticoagulation Patient seen and examined at bedside with RN. Chart reviewed. Case discussed with patient in case management at bedside. Patient was going to be discharged home today however started complaining of having some chest pain. EKG was done which was consistent with first-degree AV block. Cardiology was thus we consulted and echocardiogram was ordered. Review of Systems 10-point ROS is otherwise unremarkable Physical Examination - Vital Signs Temperature: 97.9 F Blood Pressure: 130/63 Pulse: 70 Respirations: 18 Pulse Ox (%): 96 - Physical Exam General: Alert, In no apparent distress HEENT: Atraumatic, PERRLA, EOMI Neck: Supple, JVD not distended Respiratory: Clear to auscultation bilaterally, Normal air movement Cardiovascular: Regular rate/rhythm, Normal S1 S2 Gastrointestinal: Normal bowel sounds, No tenderness Musculoskeletal: No tenderness Integumentary: No rashes Neurological: Normal speech, Normal tone, Normal affect Lymphatics: No axilla or inguinal lymphadenopathy - Studies Laboratory Data (last 24 hrs) 11/30/18 11:47: Troponin I < 0.02 11/30/18 04:56: PT 10.6, INR 0.89, APTT 36.4 11/30/18 04:56: Sodium 144, Potassium 4.9, BUN 19 H, Creatinine 0.95, Glucose 110 H, Phosphorus 4.5, Magnesium 1.9, Total Bilirubin 0.2, AST 29, ALT 36, Alkaline Phosphatase 66 11/30/18 04:56: WBC 5.6, Hgb 14.4, Hct 43.2, Plt Count 289 Medications List Reviewed: Yes Assessment And Plan - Current Problems (Diagnosis) (1) DVT (deep venous thrombosis) Onset Date: 11/29/18 Current Visit: Yes Status: Acute Plan: Suspected left lower leg DVT. -initial ultrasound negative for DVT. -cardiology consulted. Appreciated recommendations -highly suspicious of DVT given the CTA results and clinical picture -start on anti coagulation. -patient currently not able to afford the newer drugs. -On Lovenox and patient on Coumadin -INR still subtherapeutic today. 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 (3) Diabetes mellitus Current Visit: No Status: Chronic Qualifiers: Diabetes mellitus type: type 2 Diabetes mellitus exterminator helper insulin use: without correction use Diabetes mellitus complication status: without complication Qualified Code(s): E11.9 - Type 2 diabetes mellitus without complications - Plan Pending clinical improvement at this time. Patient complaining of having chest pain. Troponin x1 negative. EKG with first-degree AV block. Echocardiogram pending at this time and cardiology consult Roxy pending at this time. Will continue to monitor patient recheck INR for therapeutic level. Warfarin has been increased today to 5 mg. Discharge Plan: Home Plan to discharge in: 48 Hours - Code Status/Comfort Care Code Status Assessed: Yes Critical Care: No
--- NOTE | 2018-11-30 16:59 | EKG ---
Test Date: 2018-11-30 Test Time: 12:00:43 Livestock Yard Attendant: GILMER MEASUREMENT RESULTS: Intervals: Rate: 62 MT: 216 QRSD: 80 QT: 396 QTc: 401 [place]: P: 69 MT: 216 QRS: 43 T: 46 INTERPRETIVE STATEMENTS: Sinus rhythm with 1st degree AV block Otherwise normal ECG Compared to ECG 09/01/2016 07:42:13 First degree AV block now present Sinus tachycardia no longer present Myocardial infarct finding no longer present Electronically Signed On 11-30-18 16:58:47 EQUIPMENT OPERATOR/LABORER by Rajinder Aguilera
--- NOTE | 2018-11-30 17:06 | ECHO ---
HEIGHT: 5 ft 3 in WEIGHT: 159 lb 9.6 oz DATE OF STUDY: 11/30/[address]: Michelle Baum MD 2-DIMENSIONAL: YES M.MODE: YES DOPPLER: YES COLOR FLOW: YES TDS: PORTABLE: DEFINITY: BUBBLE STUDY: DIAGNOSIS: CHEST PAIN CARDIAC HISTORY: CATHERIZATION: NO SURGERY: NO PROSTHETIC VALVE: NO PACEMAKER: NO MEASUREMENTS (cm) DIASTOLIC (NORMALS) SYSTOLIC (NORMALS) IVSd 1.0 (0.6-1.2) LA Diam 2.8 (1.9-4.0) LVEF 69% LVIDd 4.0 (3.5-5.7) LVIDs 2.5 (2.0-3.5) %FS 38% LVPWd 1.0 (0.6-1.2) Ao Diam 2.8 (2.0-3.7) 2 DIMENSIONAL ASSESSMENT: RIGHT ATRIUM: NORMAL LEFT ATRIUM: NORMAL RIGHT VENTRICLE: NORMAL LEFT VENTRICLE: NORMAL TRICUSPID VALVE: NORMAL MITRAL VALVE: NORMAL PULMONIC VALVE: NORMAL AORTIC VALVE: NORMAL PERICARDIAL EFFUSION: NONE AORTIC ROOT: NORMAL LEFT VENTRICULAR WALL MOTION: NORMAL DOPPLER/COLOR FLOW: NORMAL COMMENTS: NORMAL TWO DIMENSIONAL ECHOCARDIOGRAM WITH DOPPLER. TECHNOLOGIST: ROSS BRANTLEY
[2018-11-30] MEDS ORDERED: WARFARIN SODIUM 5 MG TAB PO SCH (18:00)
[2018-11-30] MEDS: DILTIAZEM HCL 180 MG SR CAP PO SCH (22:04)
[2018-11-30] MEDS: hydroCHLOROthiazide 12.5 MG CAP PO SCH (22:05)
[2018-11-30] MEDS: ATORVASTATIN 10 MG TAB PO SCH (22:05)
[2018-11-30] MEDS: SERTRALINE HCL 100 MG TAB PO SCH (22:06)
[2018-11-30] MEDS: LOSARTAN POTASSIUM 50 MG TABLET PO SCH (22:07)
[2018-11-30] MEDS: TRAZODONE 150 MG TAB PO PRN (22:12)
--- NOTE | 2018-11-30 22:17 | CON ---
CARDIOLOGY CONSULTATION History: Ms. Valerio has swelling in her legs. There is some arterial vascular disease, but we thin k it is a DVT, probably beyond where the venous ultrasound looks. She also reports having intermitte nt chest pain and that is why I am asked to visit with her again. She is really improving on anticoa gulant therapy, although we do not have any imaging that proved she actually has a DVT. Social History: She was a cigarette smoker, but quit 3 years ago. Diagnostic Data: A nuclear stress test was normal. An echocardiogram today is normal. Physical Examination: Vital signs: Height 5 feet 3 inches, weight 159 pounds. HEENT: Normal. Lungs: Clear. Cardiac: Exam within normal limits. Assessment And Plan: I will recommend that she do a nuclear stress test tomorrow. We will see if th ere is any sign of ischemic heart disease and decide what to do about it. I would ask the attending physician to consider an MRA of the pelvis to see if there is an underlying deep vein thrombosis in t he pelvis. Thank you very much for your kind referral of Ms. Valerio. I will follow her with you. SHANIQUA/RAY Voice ID: [id number] Report ID: [id number]
[2018-12-01] MEDS: HYDROCODONE/APAP 7.5/325 MG TAB PO PRN ×2 (02:13→08:24)
[2018-12-01] MEDS: LEVOTHYROXINE SOD 0.025 MG TAB PO SCH (05:41)
[2018-12-01] MEDS: ENOXAPARIN 80 MG/0.8 ML SQ SCH (05:42)
[2018-12-01 07:13] LABS: Albumin 3.6 g/dL (3.4-5.0); Bilirubin Total 0.2 mg/dL (0.2-1.0); Magnesium 1.9 mg/dL (1.8-2.4); Phosphorus 4.7 mg/dL (2.5-4.9); Protein, Total 6.3 g/dL (6.4-8.2)
[2018-12-01 07:14] LABS: Absolute Lymphocytes (CBC) 2.2 K/uL (0.7-4.9); Absolute Monocytes 0.4 K/uL (0.1-1.3); Absolute Neutrophil 1.6 K/uL (1.8-8.0); Hematocrit 42.3 % (36.0-45.0); Lymphocytes % 46.4 % (15.3-44.8); Monocytes % 9.2 % (3.3-12.3); RBC Red Blood Cell Count 4.45 M/uL (3.86-4.86)
[2018-12-01 07:17] LABS: Protime INR 0.95
[2018-12-01] MEDS: INSULIN -REGULAR HUMAN 50 UNIT/0.5 ML ML SQ SCH ×2 (07:30→11:30)
[2018-12-01] MEDS: HOME MED 1 EA UNK (Fluticasone/Salmeterol [Advair 250-50 Diskus] 1 EACH) IH SCH (08:25)
[2018-12-01 08:46] LABS: Platelet Estimate ADEQ; Urine White Blood Cell Casts DIFF
[2018-12-01 08:47] LABS: Blood Morphology Comment NOT SEEN (NOT SEEN)
[2018-12-01] MEDS ORDERED: REGADENOSON 0.4 MG/5 ML SYR IV ONE (09:57)
[2018-12-01 12:19] VITALS: BP 113/56; TEMP 96.2
--- NOTE | 2018-12-01 13:39 | RAD REPORT ---
EXAM DESCRIPTION: NM - Rest Stress Cardiac Imaging - 12/01/2018 1:28 pm CLINICAL HISTORY: Chest pain COMPARISON: None. TECHNIQUE: The patient was administered approximately 10 mCi of Tc 99m Sestamibi prior to resting SP ECT imaging of the heart. The patient was then administered approximately 30 mCi of Tc 99m Sestamibi following exercise or pharmacologic stress. Multiplanar SPECT images were reviewed. FINDINGS: The end diastolic volume is 77 ml, the end systolic volume is 26 ml, and the ejection frac tion is 66 %. No stress-induced ischemic change identifiable. Moderately large area diminished activity involves th e inferior wall mid in apex portion. This is unchanged between rest and stress imaging. This may refl ect diaphragmatic attenuation artifact, scarring or a combination. No other areas of possible scarrin g. IMPRESSION: No stress-induced ischemic change. Moderate fixed defect inferior wall mid in apex portion could be attenuation artifact, scarring or a combination. Ventricular volumes and ejection fraction are well within normal limits.
[2018-12-01 14:51] VITALS: O2SAT 96
--- NOTE | 2018-12-01 16:45 | TREADPHA ---
DX: CHEST PAIN Date of Study: 12/01/2018 Ht: 5 3 Wt: 159 lb 9.6 oz Consulting Physician: WOLF MEDICATIONS: TYLENOL, NORCO, LIPITOR, DEXTROSE, LOVENOX, GLUCAGEN. HISTORY: 73 YEAR FEMALE. COMPLAINTS OF CHEST PAIN. HISTORY: HYPERTENSION, HYPOTHYROIDISM, NIDDM, SPINE SX, BLOOD CLOT- LOWER EXTREMETY. PHYSICIAL EXAMINATION: RESTING B.P.: 118/69 RESTING H.R.: 63 RESTING EKG: NORMAL PROTOCOL: LEXISCAN EXERCISE TIME: 3:30 B.P. AT PEAK STRESS: 125/61 IMPRESSION: LEXISCAN INJECTED, FOLLOWED BY CARDIOLITE PER PROTOCOL, SEE NUCLEAR MEDICINE REPORT. NO SUPRAVENTRIULCAR TACHYCARDIA. NO VENTRICULAR TACHYCARDIA. NO PREMATURE ATRIAL COMPLEXS. NO PREMATURE VENTRICULAR COMPLEXS. PATIENT REPORTED NO CHEST PAIN, OR TIGHTNESS THROUGHOUT PROCEDURE, OR IN RECOVERY.
--- NOTE | 2018-12-01 18:50 | P.DS ---
Admission Date: 11/28/18 Discharge Date: 12/01/18 Discharge Condition: FAIR Reason for Admission: Anticoagulation - Problems (1) DVT (deep venous thrombosis) Onset Date: 11/29/18 Status: Acute Qualifiers: DVT location: lower extremity Affected thrombotic vein of extremity: unspecified lower extremity proximal vein Chronicity: acute Laterality: left Qualified Code(s): I82.4Y2 - Acute embolism and thrombosis of unspecified deep veins of left proximal lower extremity (2) Leg edema, left Status: Acute Brief History of Present Illness: [facility] Course: - Current Problems (Diagnosis) (1) DVT (deep venous thrombosis) Onset Date: 11/29/18 Current Visit: Yes Status: Acute Plan: Suspected left lower leg DVT. -initial ultrasound negative for DVT. -cardiology consulted. Appreciated recommendations -highly suspicious of DVT given the CTA results and clinical picture -start on anti coagulation. -patient currently not able to afford the newer drugs. -On Lovenox and patient on Coumadin -INR still subtherapeutic today. 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 (3) Diabetes mellitus Current Visit: No Status: Chronic Qualifiers: Diabetes mellitus type: type 2 Diabetes mellitus medical diagnostic radiographer insulin use: without medical diagnostic radiographer use Diabetes mellitus complication status: without complication Qualified Code(s): E11.9 - Type 2 diabetes mellitus without complications Vital Signs/Physical Exam: Temp Pulse Resp BP Pulse Ox 96.2 F L 56 18 113/56 L 93 12/01/18 12:00 12/01/18 12:00 12/01/18 12:00 12/01/18 12:00 12/01/18 12:00 General: Alert, Oriented x3 HEENT: Atraumatic, Normocephalic, PERRLA Neck: Supple, JVD not distended Respiratory: Clear to auscultation bilaterally, Normal air movement Cardiovascular: No edema, Normal pulses, Regular rate/rhythm, Normal S1 S2 Gastrointestinal: Normal bowel sounds, Soft and benign, Non-distended Musculoskeletal: No clubbing, No swelling Integumentary: No rashes Neurological: Normal strength at 5/5 x4 extr Laboratory Data at Discharge: WBC 4.7 K/uL (4.3-10.9) D 12/01/18 06:20 Hgb 14.0 g/dL (12.0-15.0) 12/01/18 06:20 Hct 42.3 % (36.0-45.0) 12/01/18 06:20 Plt Count 267 K/uL (152-406) 12/01/18 06:20 PT 11.2 SECONDS (9.5-12.5) 12/01/18 06:20 INR 0.95 12/01/18 06:20 APTT 42.7 SECONDS (24.3-36.9) H 12/01/18 06:20 Sodium 143 mmol/L (136-145) 12/01/18 06:20 Potassium 4.0 mmol/L (3.5-5.1) 12/01/18 06:20 BUN 19 mg/dL (7-18) H 12/01/18 06:20 Creatinine 0.89 mg/dL (0.55-1.3) 12/01/18 06:20 Glucose 107 mg/dL (74-106) H 12/01/18 06:20 Phosphorus 4.7 mg/dL (2.5-4.9) 12/01/18 06:20 Magnesium 1.9 mg/dL (1.8-2.4) 12/01/18 06:20 Total Bilirubin 0.2 mg/dL (0.2-1.0) 12/01/18 06:20 AST 51 U/L (15-37) H 12/01/18 06:20 ALT 55 U/L (12-78) 12/01/18 06:20 Alkaline Phosphatase 64 U/L (45-117) 12/01/18 06:20 Troponin I < 0.02 ng/mL (0.0-0.045) 11/30/18 11:47 Home Medications: Albuterol Sulfate [Proair Hfa] 1 puff IH Q4H PRN 11/28/18 Diltiazem HCl [Cartia Xt] 180 mg PO DAILY 11/28/18 Fluticasone/Salmeterol [Advair 250-50 Diskus] 1 each IH BID 11/28/18 Levothyroxine [Synthroid*] 0.025 mg PO DAILY 11/28/18 Losartan/Hydrochlorothiazide [Losartan-Hctz 100-12.5 mg Tab] 1 tab PO DAILY 10/04 Lovastatin 10 mg PO DAILY 11/28/18 Metformin HCl 850 mg PO DAILY 11/28/18 Sertraline [Zoloft*] 100 mg PO DAILY 11/28/18 Enoxaparin Sodium [Lovenox] 80 mg SQ BID #10 ml 11/30/18 Warfarin Sodium [Coumadin*] 5 mg PO DAILY 5 PM #60 tab 11/30/18 New Medications: Enoxaparin Sodium [Lovenox] 80 mg SQ BID #10 ml Warfarin Sodium [Coumadin*] 5 mg PO DAILY 5 PM #60 tab Patient Discharge Instructions: f/up with coumadin clinic on tuesday12/04/18. f/ up with pcp for continuation of care Diet: ADA Activity: Ad mayra Followup: Rajinder Aguilera MD [ACTIVE - CAN ADMIT] - Kate Brown MD [Primary Care Provider] - 1 Week (call to schedule appointment)
--- NOTE | 2018-12-02 11:28 | PN ---
Date of Progress Note: 12/01/2018 The patient was admitted with a possible DVT, negative venous Doppler, seen by Dr. Aguilera. She was a dmitted to Dr. Baum's service. She has peripheral arterial disease with about a 70% iliac stenosis, but no stenosis below that. She has no claudication. She is on Lovenox right now. She had a claude l echocardiogram. She probably should be treated with Xarelto as an outpatient. No claudication. I f she has symptoms of claudication, we will do an angiography on her. No plans to do so for now. A Lexiscan that was ordered today was normal. She can go home as far as we are concerned. We will see her in the office in the next 2 weeks. DEVON/RAY Voice ID: [id number] Report ID: [id number]
== END 2018-12-01 15:58 | disposition home or self-care (01) ==
LOC: 4TH 12:34 → INTOOBSV 12:34
PROVIDERS: ADMIT Family Medicine; ATTEND Family Medicine
DX: R60.0 Localized edema (principal); I73.9 Peripheral vascular disease, unspecified; J44.9 Chronic obstructive pulmonary disease, unspecified; E11.9 Type 2 diabetes mellitus without complications; Z88.2 Allergy status to sulfonamides; I10 Essential (primary) hypertension
CPT/HCPCS: 36415 ×3; 78452; 80053 ×3; 82962 ×12; 83735 ×3; 84100 ×3; 84484; 85025 ×3; 85610 ×3; 85730 ×3; 93005; 93017; 93306; A9500; G0378; G0379; J1650 ×6; J2785

== ENCOUNTER 2018-12-24 21:43 | Emergency (ER) | payer OTHER, BC ==
--- OUTSIDE RECORDS SUMMARY | 2018-12-24 21:46 | XMS REPORT ---
:1945 [facility] Address [address] [place] [address] Dr. Vincent [address] [place] [id number] Care Team Providers Name Role Phone Unavailable Unavailable Unavailable Problems This patient has no known problems. Allergies, Adverse Reactions, Alerts This patient has no known allergies or adverse reactions. Medications This patient has no known medications.
[2018-12-24 23:36] LABS: Absolute Lymphocytes (CBC) 2.5 K/uL (0.7-4.9); Absolute Monocytes 0.6 K/uL (0.1-1.3); Absolute Neutrophil 3.7 K/uL (1.8-8.0); Basophils % 1.3 % (0-1.3); Eosinophils % 4.3 % (0-4.4); Hematocrit 39.2 % (36.0-45.0); Lymphocytes % 35.5 % (15.3-44.8); MPV 7.4 fL (7.6-11.3); Monocytes % 7.7 % (3.3-12.3); RBC Red Blood Cell Count 4.29 M/uL (3.86-4.86)
[2018-12-24 23:42] LABS: Protime INR 1.17
[2018-12-25] LABS: Bilirubin Total 0.4 mg/dL (0.2-1.0); Potassium 3.6 mmol/L (3.5-5.1); Protein, Total 6.8 g/dL (6.4-8.2)
--- NOTE | 2018-12-25 01:30 | ER ---
Nurse's Notes [facility] Name: Chacha Valerio Age: 73 yrs Sex: Female : 1945 Arrival Date: 12/24/2018 Time: 21:44 Bed 6 Private MD: Diagnosis: Cellulitis and acute lymphangitis of other sites Presentation: 12/24 22:47 Presenting complaint: Patient states: redness, knot, heat and pain to right elbow ak1 sudden onset tonight. pt discharged from hospital 12/01 dx DVT to left leg. Transition of care: patient was not received from another setting of care. Onset of symptoms was December 24, 2018. Risk Assessment: Do you want to hurt yourself or someone else? Patient reports no desire to harm self or others. Initial Sepsis Screen: Does the patient meet any 2 criteria? No. Patient's initial sepsis screen is negative. Does the patient have a suspected source of infection? No. Patient's initial sepsis screen is negative. Care prior to arrival: None. 22:47 Method Of Arrival: Ambulatory ak1 22:47 Acuity: RIAN 3 ak1 Triage Assessment: 22:52 General: Appears in no apparent distress. Behavior is calm, cooperative. Pain: ak1 Complains of pain in right elbow. EENT: No signs and/or symptoms were reported regarding the EENT system. Neuro: No deficits noted. Cardiovascular: No deficits noted. Respiratory: No deficits noted. GI: No signs and/or symptoms were reported involving the gastrointestinal system. : No signs and/or symptoms were reported regarding the genitourinary system. Derm: Skin is red, Skin temperature is warm. Musculoskeletal: No signs and/or symptoms reported regarding the musculoskeletal system. Historical: - Allergies: 22:52 Codeine; ak1 22:52 Levaquin; ak1 22:52 Sulfa (Sulfonamide Antibiotics); ak1 - Home Meds: 22:52 Advair Diskus 250-50 mcg/dose Inhl dsdv 1 puff 2 times per day [Active]; Citracal Oral ak1 daily [Active]; Decara 50,000 unit Oral cap once a month [Active]; diltiazem HCl 180 mg Oral CDER 1 cap once daily [Active]; levothyroxine 25 mcg tab 1 tab once daily [Active]; losartan-hydrochlorothiazide 100-12.5 mg Oral tab 1 tab once daily [Active]; lovastatin 10 mg Oral tab 1 tab once daily [Active]; metformin 850 mg Oral tab 1 tab 1 time daily [Active]; [place] 5-325 mg Oral tab 1 tab every 4 hours [Active]; proair [Active]; ProAir HFA 90 mcg/actuation inhalation HFAA as needed [Active]; setraline 100 mg 1 tab daily [Active]; tramadol 50 mg Oral tab 1 tab every 4-6 hours [Active]; trazodone 150 mg Oral tab 1 tab daily [Active]; 22:57 Lovenox 80 mg/0.8 mL Sub-Q syrg every 12 hours [Active]; warfarin 2.5 mg Oral tab ak1 [Active]; - PMHx: 22:52 COPD; Diabetes - NIDDM; Hypertension; Hypothyroidism; ak1 - PSHx: 22:52 Hysterectomy; Lumbar spine back surgery; neck surgery; breast augmentation; breast ak1 implant removal; foot surgery; - Immunization history:: Adult Immunizations up to date. - Social history:: Smoking status: Patient/guardian denies using tobacco, the patient reports quitting approximately .5 years ago. - Ebola Screening: : No symptoms or risks identified at this time. Screenin:58 Abuse screen: Denies threats or abuse. Denies injuries from another. Nutritional ak1 screening: No deficits noted. Tuberculosis screening: No symptoms or risk factors identified. Fall Risk None identified. Assessment: 22:59 Reassessment: Patient appears in no apparent distress at this time. No changes from ak1 previously documented assessment. Patient and/or family updated on plan of care and expected duration. Pain level reassessed. Patient is alert, oriented x 3, equal unlabored respirations, skin warm/dry/pink. Vital Signs: 22:57 BP 131 / 69; Pulse 85; Resp 16; Temp 97.7(O); Pulse Ox 93% on R/A; Weight 71.21 kg (R); ak1 Height 5 ft. 3 in. (160.02 cm) (R); Pain 2/10; 22:57 Body Mass Index 27.81 (71.21 kg, 160.02 cm) ak1 ED Course: 21:44 Patient arrived in ED. es 22:47 Stephany Cantor, RN is Primary Nurse. ak1 22:48 Triage completed. ak1 22:57 Chris Auguste MD is Attending Physician. tw4 22:57 Arm band placed on Patient placed in an exam room, on a stretcher, on pulse oximetry. ak1 22:58 Patient has correct armband on for positive identification. Bed in low position. Call ak1 light in reach. Side rails up X 1. Adult w/ patient. Pulse ox on. NIBP on. 23:33 Initial lab(s) drawn, by me, sent to lab. Inserted saline lock: 24 gauge in right aj1 forearm, using aseptic technique. Blood collected. 12/25 00:42 Ultrasound completed. Patient tolerated well. aa4 00:43 UPPER EXTREMITY VENOUS UNILATE In Process Unspecified. EDMS 01:26 No provider procedures requiring assistance completed. IV discontinued, intact, ak1 bleeding controlled, No redness/swelling at site. Pressure dressing applied. Administered Medications: 01:37 Drug: Clindamycin 150 mg Route: PO; ak1 01:43 Follow up: Response: No adverse reaction; Medication administered at discharge. ak1 Outcome: 01:27 Discharged to home ambulatory, with family. ak1 01:27 Condition: good 01:27 Discharge instructions given to patient, family, Instructed on discharge instructions, follow up and referral plans. no drinking with medication, no driving heavy equipment, medication usage, Demonstrated understanding of instructions, follow-up care, medications, Prescriptions given X 1. 01:30 Discharge ordered by . tw4 01:42 Patient left the ED. ak1 Signatures: Dispatcher [employer] Christina Seals RN RN aj1 Julia Burroughs Amanda aa4 Stephany Cantor RN RN ak1 Chris Auguste MD MD 4
--- NOTE | 2018-12-25 01:30 | EDPHYS ---
Physician Documentation [facility] Name: Chacha Valerio Age: 73 yrs Sex: Female : 1945 Arrival Date: 12/24/2018 Time: 21:44 Bed 6 Private MD: ED Physician Chris Auguste HPI: 12/25 01:44 This 73 yrs old Female presents to ER via Ambulatory with complaints of tw4 POSSIBLE CLOT IN ARM. 01:44 The patient or guardian complains of pain. The complaints affect the right antecubital tw4 area and right wrist. Onset: The symptoms/episode began/occurred yesterday, at an unknown time. Treatment prior to arrival includes: no previous treatment. Modifying factors: The symptoms are alleviated by nothing. the symptoms are aggravated by nothing. Severity of symptoms: At their worst the symptoms were moderate, in the emergency department the symptoms are unchanged. The patient has not experienced similar symptoms in the past. Historical: - Allergies: 12/24 22:52 Codeine; ak1 22:52 Levaquin; ak1 22:52 Sulfa (Sulfonamide Antibiotics); ak1 - Home Meds: 22:52 Advair Diskus 250-50 mcg/dose Inhl dsdv 1 puff 2 times per day [Active]; Citracal Oral ak1 daily [Active]; Decara 50,000 unit Oral cap once a month [Active]; diltiazem HCl 180 mg Oral CDER 1 cap once daily [Active]; levothyroxine 25 mcg tab 1 tab once daily [Active]; losartan-hydrochlorothiazide 100-12.5 mg Oral tab 1 tab once daily [Active]; lovastatin 10 mg Oral tab 1 tab once daily [Active]; metformin 850 mg Oral tab 1 tab 1 time daily [Active]; [place] 5-325 mg Oral tab 1 tab every 4 hours [Active]; proair [Active]; ProAir HFA 90 mcg/actuation inhalation HFAA as needed [Active]; setraline 100 mg 1 tab daily [Active]; tramadol 50 mg Oral tab 1 tab every 4-6 hours [Active]; trazodone 150 mg Oral tab 1 tab daily [Active]; 22:57 Lovenox 80 mg/0.8 mL Sub-Q syrg every 12 hours [Active]; warfarin 2.5 mg Oral tab ak1 [Active]; - PMHx: 22:52 COPD; Diabetes - NIDDM; Hypertension; Hypothyroidism; ak1 - PSHx: 22:52 Hysterectomy; Lumbar spine back surgery; neck surgery; breast augmentation; breast ak1 implant removal; foot surgery; - Immunization history:: Adult Immunizations up to date. - Social history:: Smoking status: Patient/guardian denies using tobacco, the patient reports quitting approximately .5 years ago. - Ebola Screening: : No symptoms or risks identified at this time. ROS: 12/25 01:44 Constitutional: Negative for fever, chills, and weight loss, Eyes: Negative for injury, tw4 pain, redness, and discharge, Cardiovascular: Negative for chest pain, palpitations, and edema, Respiratory: Negative for shortness of breath, cough, wheezing, and pleuritic chest pain, Abdomen/GI: Negative for abdominal pain, nausea, vomiting, diarrhea, and constipation, Skin: Negative for injury, rash, and discoloration, Neuro: Negative for headache, weakness, numbness, tingling, and seizure. MS/extremity: Positive for pain. Exam: 01:44 Constitutional: This is a well developed, well nourished patient who is awake, alert, tw4 and in no acute distress. Head/Face: Normocephalic, atraumatic. Chest/axilla: Normal chest wall appearance and motion. Nontender with no deformity. No lesions are appreciated. Cardiovascular: Regular rate and rhythm with a normal S1 and S2. No gallops, murmurs, or rubs. Normal PMI, no JVD. No pulse deficits. Respiratory: Lungs have equal breath sounds bilaterally, clear to auscultation and percussion. No rales, rhonchi or wheezes noted. No increased work of breathing, no retractions or nasal flaring. Abdomen/GI: Soft, non-tender, with normal bowel sounds. No distension or tympany. No guarding or rebound. No evidence of tenderness throughout. Neuro: Awake and alert, GCS 15, oriented to person, place, time, and situation. Cranial nerves II-XII grossly intact. Motor strength 5/5 in all extremities. Sensory grossly intact. Cerebellar exam normal. Normal gait. 01:44 Musculoskeletal/extremity: Extremities: noted in the right antecubital area and right wrist: 01:59 Musculoskeletal/extremity: Extremities: noted in the right antecubital area and right tw4 wrist: erythema. Vital Signs: 12/24 22:57 BP 131 / 69; Pulse 85; Resp 16; Temp 97.7(O); Pulse Ox 93% on R/A; Weight 71.21 kg (R); ak1 Height 5 ft. 3 in. (160.02 cm) (R); Pain 11/26; 22:57 Body Mass Index 27.81 (71.21 kg, 160.02 cm) ak1 MDM: 22:57 Patient medically screened. tw4 12/25 01:59 Differential diagnosis: dislocation, open fracture. Data reviewed: vital signs, nurses tw4 notes. Data interpreted: Pulse oximetry: Interpretation: normal. Counseling: I had a detailed discussion with the patient and/or guardian regarding: the historical points, exam findings, and any diagnostic results supporting the discharge/admit diagnosis, radiology results. 02:01 Special discussion: I discussed with the patient/guardian in detail that at this point tw4 there is no indication for admission to the hospital. It is understood, however, that if the symptoms persist or worsen the patient needs to return immediately for re-evaluation. ED course: ultrasound of upper extremity negative. 12/24 23:00 Order name: CBC with Diff; Complete Time: 01:43 tw4 12/25 01:43 Interpretation: Normal except: WBC 7.2; MPV 7.4. tw4 12/24 23:00 Order name: CMP; Complete Time: 01:43 tw4 12/25 01:43 Interpretation: Normal except: GLUC 127; GFR 65. tw4 12/24 23:00 Order name: Ptt, Activated; Complete Time: 01:22 tw4 12/25 01:43 Interpretation: Normal except: PTT 50.7. tw4 12/24 23:00 Order name: PT-INR; Complete Time: 01:22 4 12/25 01:43 Interpretation: Normal except: PT 13.7. 12/25 00:26 Order name: UPPER EXTREMITY VENOUS UNILATE EDMS Administered Medications: 01:37 Drug: Clindamycin 150 mg Route: PO; ak1 01:43 Follow up: Response: No adverse reaction; Medication administered at discharge. ak1 Disposition: 12/25/18 01:30 Discharged to Home. Impression: Cellulitis and acute lymphangitis of other sites. - Condition is Stable. - Discharge Instructions: Cellulitis, Adult. - Prescriptions for Cleocin 150 mg Oral Capsule - take 1 capsule by ORAL route every 6 hours for 7 days; 28 capsule. - Medication Reconciliation Form, Thank You Letter, Antibiotic Education, Prescription Opioid Use form. - Follow up: Private Physician; When: Upon discharge from the Emergency Department; Reason: If symptoms return, Recheck today's complaints, Continuance of care. - Problem is new. - Symptoms have improved. Signatures: Dispatcher [employer] [facility] Stephany Cantor, RN RN ak1 Chris Auguste MD MD tw4 Corrections: (The following items were deleted from the chart) 00:26 12/24 23:17 Extremity Venous Uni Ltd+[email or web address].[email or web address] ordered. [facility] 12/25 01:42 01:30 12/25/2018 01:30 Discharged to Home. Impression: Cellulitis and acute ak1 lymphangitis of other sites. Condition is Stable. Forms are Medication Reconciliation Form, Thank You Letter, Antibiotic Education, Prescription Opioid Use. Follow up: Private Physician; When: Upon discharge from the Emergency Department; Reason: If symptoms return, Recheck today's complaints, Continuance of care. Problem is new. Symptoms have improved. tw4
[2018-12-25] MEDS ORDERED: CLINDAMYCIN HCL 150 MG CAP ONE (01:46)
[2018-12-25 02:30] VITALS: BP 131/69; TEMP 97.7; O2SAT 93
--- NOTE | 2018-12-25 08:19 | RAD REPORT ---
EXAM DESCRIPTION: US - UPPER EXTREMITY VENOUS UNILATE - 12/25/2018 12:44 am CLINICAL HISTORY: PAIN Right arm swelling. COMPARISON: Extremity Venous Uni Ltd dated 11/27/2018 FINDINGS: Right upper extremity venous system was interrogated with Doppler technique. Normal flow, compressibility and augmentation was noted. There is no DVT present. IMPRESSION: No evidence of right upper extremity deep venous thrombosis.
== END 2018-12-25 01:42 | disposition home or self-care (01) ==
LOC: ER 21:43
DX: L03.113 Cellulitis of right upper limb (principal); I89.1 Lymphangitis; J44.9 Chronic obstructive pulmonary disease, unspecified; E11.9 Type 2 diabetes mellitus without complications; I10 Essential (primary) hypertension; E03.9 Hypothyroidism, unspecified; Z79.01 Long term (current) use of anticoagulants; Z88.1 Allergy status to other antibiotic agents; Z88.5 Allergy status to narcotic agent; Z88.2 Allergy status to sulfonamides
CPT/HCPCS: 36415; 80053; 85025; 85610; 85730; 93971; 99284

== ENCOUNTER 2019-08-22 11:31 | Inpatient (IN) | payer OTHER, BC ==
--- NOTE | 2019-08-22 12:46 | EKG ---
Test Date: 2019-08-22 Test Time: 11:48:19 Carbon Rod Inserter: GILMER MEASUREMENT RESULTS: Intervals: Rate: 94 WY: 180 QRSD: 82 QT: 336 QTc: 420 [place]: P: 74 W[place]: 180 QRS: 50 T: 103 INTERPRETIVE STATEMENTS: Normal sinus rhythm Nonspecific ST and T wave abnormality Abnormal ECG Compared to ECG 11/30/2018 12:00:43 ST (T wave) deviation now present First degree AV block no longer present Electronically Signed On 08-22-19 12:45:16 CUSTOMER SERVICE TRAINER by Rajinder Aguilera
[2019-08-22] MEDS ORDERED: IPRATROPIUM BROM 0.5MG/2.5ML ONE (13:08)
[2019-08-22] MEDS ORDERED: ALBUTEROL 2.5 MG/3 ML NEB SOL ONE ×2 (13:08→14:01)
[2019-08-22 13:23] LABS: Absolute Lymphocytes (CBC) 1.3 K/uL (0.7-4.9); Basophils % 0.9 % (0-1.3); Hematocrit 36.7 % (36.0-45.0); Lymphocytes % 15.6 % (15.3-44.8); MPV 7.5 fL (7.6-11.3); RBC Red Blood Cell Count 3.94 M/uL (3.86-4.86)
[2019-08-22 13:39] LABS: Protime INR 1.26
[2019-08-22 14:06] LABS: ALT/SGPT 16 U/L (12-78); AST/SGOT 9 U/L (15-37); Albumin 3.6 g/dL (3.4-5.0); Alkaline Phosphatase 62 U/L (45-117); BUN Blood Urea Nitrogen 17 mg/dL (7-18); Bicarbonate 31 mmol/L (21-32); Bilirubin Direct 0.2 mg/dL (0-0.2); Bilirubin Total 0.6 mg/dL (0.2-1.0); Glucose Level 115 mg/dL (74-106); Magnesium 1.7 mg/dL (1.8-2.4); NT PRO-BNP 76 pg/mL (<125); Potassium 3.4 mmol/L (3.5-5.1); Protein, Total 6.9 g/dL (6.4-8.2); Sodium Level 138 mmol/L (136-145); Troponin (Emerg Dept Use Only) < 0.02 ng/mL (0.0-0.045)
--- NOTE | 2019-08-22 14:12 | RAD REPORT ---
EXAM DESCRIPTION: RAD - Chest Pa And Lat (2 Views) - 08/22/2019 1:51 pm CLINICAL HISTORY: COUGHcough, shortness of breath, decreased O2 saturation COMPARISON: August 2016 TECHNIQUE: PA and lateral views of the chest were obtained. FINDINGS: The lungs are clear of a focal consolidation. No significant failure or volume overload. D iaphragm is flattened. Diaphragmatic eventration is also noted. Patient has a diffusely prominent interstitial pattern increased over the comparison. This could be p rogressive fibrosis, mild interstitial edema or less likely a diffuse mild interstitial infiltrate. Heart size is normal and central vasculature is within normal limits. No pleural effusion or pneumo thorax seen. No acute bony finding noted. No aortic abnormality. IMPRESSION: No focal mass or consolidation. Diffusely prominent interstitial pattern that could be progressive fibrosis, interstitial edema, in f ull trait or a combination.
[2019-08-22] MEDS ORDERED: METHYLPREDNISOLONE 125 MG INJ ONE (14:21)
[2019-08-22] MEDS ORDERED: POTASSIUM 25 MEQ EFFERV TAB ONE (14:21)
[2019-08-22] MEDS ORDERED: MAGNESIUM SULFATE 1 gm IVPB 1 GM/100 ML BAG IV ONE (14:25)
--- NOTE | 2019-08-22 15:21 | EDPHYS ---
Physician Documentation [facility] Name: Chacha Valerio Age: 74 yrs Sex: Female : 1945 Arrival Date: 08/22/2019 Time: 11:34 Bed 20 Private MD: ED Physician Raul Davis HPI: 08/22 12:35 This 74 yrs old Female presents to ER via Ambulatory with complaints of Flu cp Symptoms. 12:35 The patient or guardian reports cough, that is intermittent, flu symptoms, low-grade cp fever. 12:35 Onset: The symptoms/episode began/occurred 3 day(s) ago. Associated signs and symptoms: cp Pertinent positives: chest pain, with cough, fever, sore throat, Pertinent negatives: diarrhea, vomiting. Severity of symptoms: in the emergency department the symptoms are worse. The patient has been recently seen by a physician: the patient's primary care provider, yesterday, with similar presenting complaints, was given a prescription for antibiotics. Historical: - Allergies: 11:38 Codeine; aa5 11:38 Levaquin; aa5 11:38 Sulfa (Sulfonamide Antibiotics); aa5 - PMHx: 11:38 COPD; Diabetes - NIDDM; Hypertension; Hypothyroidism; aa5 - PSHx: 11:38 Hysterectomy; Lumbar spine back surgery; neck surgery; breast augmentation; breast aa5 implant removal; foot surgery; - Immunization history:: Flu vaccine is up to date. - Social history:: Smoking status: Patient/guardian denies using tobacco. - Ebola Screening: : No symptoms or risks identified at this time. ROS: 12:40 Constitutional: Negative for body aches, chills, fever, poor PO intake. cp 12:40 Eyes: Negative for injury, pain, redness, and discharge. cp 12:40 ENT: Positive for sore throat. 12:40 Cardiovascular: Positive for chest pain, with cough, Negative for edema, palpitations. 12:40 Respiratory: Positive for cough, "sounds productive", shortness of breath, Negative for hemoptysis. 12:40 Abdomen/GI: Negative for abdominal pain, nausea, vomiting, and diarrhea. 12:40 Skin: Negative for cellulitis, rash. 12:40 Neuro: Negative for altered mental status, headache, weakness. 12:40 All other systems are negative. Exam: 12:50 Constitutional: The patient appears in no acute distress, alert, awake, cp non-diaphoretic, non-toxic, well developed, well nourished. 12:50 Head/Face: Normocephalic, atraumatic. cp 12:50 Eyes: Periorbital structures: appear normal, Conjunctiva: normal, no exudate, no injection, Sclera: no appreciated abnormality, Lids and lashes: appear normal, bilaterally. 12:50 ENT: External ear(s): are unremarkable, Ear canal(s): are normal, clear, TM's: dullness, bilaterally, Nose: is normal, Mouth: Lips: moist, Oral mucosa: pink and intact, moist, Posterior pharynx: is normal, airway is patent, no erythema, no exudate. 12:50 Neck: ROM/movement: is normal, is supple, without pain, no range of motions limitations, no meningismus, no nuchal rigidity, Lymph nodes: no appreciated lymphadenopathy. 12:50 Chest/axilla: Inspection: normal, Palpation: is normal, no crepitus, no tenderness. 12:50 Cardiovascular: Rate: normal, Rhythm: regular, Edema: is not appreciated, JVD: is not appreciated. 12:50 Respiratory: the patient does not display signs of respiratory distress, Respirations: labored breathing, is not present, shallow respirations, are not present, Breath sounds: decreased breath sounds, that are mild, throughout, stridor, is not appreciated, wheezing: that is mild, is heard diffusely. 12:50 Abdomen/GI: Inspection: abdomen appears normal, Bowel sounds: active, all quadrants, Palpation: abdomen is soft and non-tender, in all quadrants. 12:50 Back: pain, is absent, ROM is normal. 12:50 Skin: no rash present. 12:50 Neuro: Orientation: to person, place \\T\\ time. Mentation: is normal, Motor: moves all fours, strength is normal. Vital Signs: 11:39 BP 124 / 57; Pulse 95; Resp 18 S; Temp 98.8(TE); Pulse Ox 90% on R/A; Weight 72.57 kg aa5 (R); Height 5 ft. 3 in. (160.02 cm) (R); Pain 9/10; 13:16 BP 103 / 57; Pulse 88; Resp 18; Pulse Ox 95% on Nebulizer Mask; aj1 14:55 BP 121 / 49; Pulse 100; Resp 22; Pulse Ox 88% on R/A; aj1 15:03 Pulse Ox 98% on 2 lpm NC; aj1 15:45 BP 109 / 51; Pulse 105; Resp 20; Temp 99.2; Pulse Ox 96% on 2 lpm NC; aj1 16:45 BP 114 / 50; Pulse 101; Resp 18; Pulse Ox 96% on 2 lpm NC; aj1 17:49 BP 109 / 58; Pulse 102; Resp 22; Pulse Ox 95% on 2 lpm NC; aj1 11:39 Body Mass Index 28.34 (72.57 kg, 160.02 cm) aa5 MDM: 12:25 Patient medically screened. 15:00 Data reviewed: vital signs, nurses notes, lab test result(s), EKG, radiologic studies, cp plain films, I have discussed the patient's presentation/case with the attending Emergency Department Physician;. 15:10 ED course: VSS. Patient continues to have oxygen sats at 88% on RA after breathing cp treatments. Patient placed on supplemental oxygen and will admit for continued treatment. 15:10 Physician consultation: Abdirizak Markham DO was called at 15:10, was contacted at 15:10, regarding admission, to the telemetry unit. patient's condition. 08/22 12:36 Order name: Basic Metabolic Panel; Complete Time: 14:12 08/22 14:12 Interpretation: Normal except: K 3.4; GLUC 115; GFR 55. 08/22 12:36 Order name: CBC with Diff; Complete Time: 14:12 08/22 14:12 Interpretation: Normal except: MPV 7.5; TOMASA% 74.2. 08/22 12:36 Order name: LFT's; Complete Time: 14:12 08/22 12:36 Order name: Magnesium; Complete Time: 14:12 08/22 14:50 Interpretation: Abnormal: MG 1.7. 08/22 12:36 Order name: NT PRO-BNP; Complete Time: 14:12 08/22 12:36 Order name: PT-INR; Complete Time: 14:12 08/22 12:36 Order name: Troponin (emerg Dept Use Only); Complete Time: 14:12 cp 08/22 12:36 Order name: Influenza Screen (a \\T\\ B); Complete Time: 14:12 cp 08/22 13:00 Order name: XRAY Chest Pa And Lat (2 Views); Complete Time: 14:43 cp 08/22 15:44 Order name: Blood Culture Adult (2) cp 08/22 15:44 Order name: Procalcitonin; Complete Time: 16:54 cp 08/22 15:44 Order name: Lactate; Complete Time: 16:54 cp 08/22 16:55 Interpretation: Abnormal: LAC 2.6. cp 08/22 17:41 Order name: Urine Dipstick--Ancillary (enter results) 08/22 12:36 Order name: EKG; Complete Time: 12:37 cp 08/22 12:36 Order name: Cardiac monitoring; Complete Time: 13:13 cp 08/22 12:36 Order name: EKG - Nurse/Tech; Complete Time: 13:13 cp 08/22 12:36 Order name: IV Saline Lock; Complete Time: 13:04 cp 08/22 12:36 Order name: Labs collected and sent; Complete Time: 13:04 cp 08/22 12:36 Order name: O2 Per Protocol; Complete Time: 13:04 cp 08/22 12:36 Order name: O2 Sat Monitoring; Complete Time: 13:04 cp 08/22 14:29 Order name: Diet Regular; Complete Time: 14:29 08/22 15:19 Order name: Urine Dipstick-Ancillary (obtain specimen); Complete Time: 17:46 cp Administered Medications: 13:13 Drug: Albuterol 2.5 mg Route: Inhalation; aj1 13:13 Drug: AtroVENT Aerosol 0.5 mg Route: Inhalation; aj1 17:52 Follow up: Response: No adverse reaction aj1 14:02 Drug: Albuterol 2.5 mg Route: Inhalation; aj1 14:30 Drug: Albuterol 2.5 mg Route: Inhalation; aj1 17:51 Follow up: Response: No adverse reaction aj1 14:32 Drug: SOLU-Medrol 125 mg Route: IVP; Site: right antecubital; aj1 14:32 Drug: Magnesium Sulfate 1 grams Route: IVPB; Infused Over: 1 hrs; Site: right aj1 antecubital; 14:32 Drug: Potassium Effervescent Tablet 25 mEq Route: PO; aj1 15:30 Follow up: Response: No adverse reaction aj1 16:13 Drug: NS 0.9% 500 ml Route: IV; Rate: bolus; Site: right antecubital; aj1 17:52 Follow up: IV Status: Completed infusion; IV Intake: 500ml aj 17:41 Drug: NS 0.9% 500 ml Route: IV; Rate: bolus; Site: right antecubital; aj1 17:41 Drug: Hydrocodone-Acetaminophen (7.5 mg-325 mg) 1 tabs Route: PO; aj1 17:52 Follow up: Response: No adverse reaction; RASS: Alert and Calm (0) aj Disposition: 08/22/19 15:19 Hospitalization ordered by Abdirizak Markham for Inpatient Admission. Preliminary diagnosis are Chronic obstructive pulmonary disease with acute lower respiratory infection, Hypoxemia. - Bed requested for Telemetry/MedSurg (Inpatient). - Status is Inpatient Admission. sg - Condition is Stable. - Problem is new. - Symptoms have improved. UTI on Admission? No Addendum: 08/24/2019 07:12 Co-signature as Attending Physician, Raul Davis MD I agree with the assessment and k dr plan of care. Signatures: Dispatcher [employer] EDMS Christina Cheung RN RN aj1 Liset Nair RN RN dw Venkata Roe RN RN sg Rittger, Kevin, MD MD [facility] Fariba Burch RN RN aa5 Prakash Galeas PA PA cp Corrections: (The following items were deleted from the chart) 08/22 16:27 15:19 Hospitalization Ordered by Abdirizak Markham DO for Inpatient Admission. Preliminary diagnosis is Chronic obstructive pulmonary disease with acute lower respiratory infection; Hypoxemia. Bed requested for Telemetry/MedSurg (Inpatient). Status is Inpatient Admission. Condition is Stable. Problem is new. Symptoms have improved. UTI on Admission? No. cp 18:06 16:27 08/22/2019 15:19 Hospitalization Ordered by Abdirizak Markham DO for Inpatient sg Admission. Preliminary diagnosis is Chronic obstructive pulmonary disease with acute lower respiratory infection; Hypoxemia. Bed requested for Telemetry/MedSurg (Inpatient). Status is Inpatient Admission. Condition is Stable. Problem is new. Symptoms have improved. UTI on Admission? No. dw
--- NOTE | 2019-08-22 15:21 | ER ---
Nurse's Notes [facility] Name: Chacha Valerio Age: 74 yrs Sex: Female : 1945 Arrival Date: 08/22/2019 Time: 11:34 Bed 20 Private MD: Diagnosis: Chronic obstructive pulmonary disease with acute lower respiratory infection;Hypoxemia Presentation: 08/22 11:35 Transition of care: patient was not received from another setting of care. Onset of aa5 symptoms was 2018. Risk Assessment: Do you want to hurt yourself or someone else? Patient reports no desire to harm self or others. Initial Sepsis Screen: Does the patient meet any 2 criteria? HR > 90 bpm. No. Patient's initial sepsis screen is negative. Does the patient have a suspected source of infection? Yes: Productive cough/pneumonia. Care prior to arrival: None. 11:35 Method Of Arrival: Ambulatory aa5 11:35 Acuity: RIAN 3 aa5 11:35 Presenting complaint: Presenting complaint: Patient states: productive cough. Pt states aa5 "I saw my doctor yesterday and and she wanted me to go to the hospital". Pt's daughter states "he oxygen has been around 87-88% at home". Pt's daughter states "she had a chest x-ray done today at [facility]". Historical: - Allergies: 11:38 Codeine; aa5 11:38 Levaquin; aa5 11:38 Sulfa (Sulfonamide Antibiotics); aa5 - PMHx: 11:38 COPD; Diabetes - NIDDM; Hypertension; Hypothyroidism; aa5 - PSHx: 11:38 Hysterectomy; Lumbar spine back surgery; neck surgery; breast augmentation; breast aa5 implant removal; foot surgery; - Immunization history:: Flu vaccine is up to date. - Social history:: Smoking status: Patient/guardian denies using tobacco. - Ebola Screening: : No symptoms or risks identified at this time. Screenin:14 Abuse screen: Denies threats or abuse. Denies injuries from another. Nutritional aj1 screening: No deficits noted. Tuberculosis screening: No symptoms or risk factors identified. 17:51 Fall Risk None identified. aj1 Assessment: 13:14 General: Appears in no apparent distress. comfortable, Behavior is calm, cooperative, aj1 appropriate for age. Pain: Denies pain. Neuro: Level of Consciousness is awake, alert, obeys commands, Oriented to person, place, time, situation. Cardiovascular: Heart tones S1 S2 present Patient's skin is warm and dry. Rhythm is sinus rhythm. Respiratory: Reports shortness of breath on exertion cough that is persistent Airway is patent Respiratory effort is even, unlabored, Respiratory pattern is regular, symmetrical, Breath sounds with wheezes bilaterally. GI: No signs and/or symptoms were reported involving the gastrointestinal system. : No signs and/or symptoms were reported regarding the genitourinary system. EENT: No signs and/or symptoms were reported regarding the EENT system. Derm: No signs and/or symptoms reported regarding the dermatologic system. Skin is pink, warm \\T\\ dry. normal. Musculoskeletal: No signs and/or symptoms reported regarding the musculoskeletal system. Circulation, motion, and sensation intact. 14:15 Reassessment: Patient appears in no apparent distress at this time. No changes from aj1 previously documented assessment. Patient and/or family updated on plan of care and expected duration. Pain level reassessed. Patient is alert, oriented x 3, equal unlabored respirations, skin warm/dry/pink. 15:03 Reassessment: Patient appears in no apparent distress at this time. No changes from aj1 previously documented assessment. Patient and/or family updated on plan of care and expected duration. Pain level reassessed. Patient is alert, oriented x 3, equal unlabored respirations, skin warm/dry/pink. 16:15 Reassessment: Patient and/or family updated on plan of care and expected duration. Pain aj1 level reassessed. General: Appears in no apparent distress. comfortable, Behavior is calm, cooperative, appropriate for age. Neuro: Level of Consciousness is awake, alert, obeys commands. Cardiovascular: Patient's skin is warm and dry. Respiratory: Airway is patent Respiratory effort is even, unlabored, Respiratory pattern is regular, symmetrical. Derm: No signs and/or symptoms reported regarding the dermatologic system. Skin is pink, warm \\T\\ dry. normal. Musculoskeletal: No signs and/or symptoms reported regarding the musculoskeletal system. Circulation, motion, and sensation intact. 17:15 Reassessment: Patient appears in no apparent distress at this time. No changes from aj1 previously documented assessment. Patient and/or family updated on plan of care and expected duration. Pain level reassessed. Patient is alert, oriented x 3, equal unlabored respirations, skin warm/dry/pink. 17:28 Reassessment: Attempted to call report to ABBY Staples on 2nd floor, receiving nurse is gina to come to the phone at this time per ABBY Nguyen on 2nd floor. Receiving nurse will call back when able. Vital Signs: 11:39 BP 124 / 57; Pulse 95; Resp 18 S; Temp 98.8(TE); Pulse Ox 90% on R/A; Weight 72.57 kg aa5 (R); Height 5 ft. 3 in. (160.02 cm) (R); Pain 9/10; 13:16 BP 103 / 57; Pulse 88; Resp 18; Pulse Ox 95% on Nebulizer Mask; aj1 14:55 BP 121 / 49; Pulse 100; Resp 22; Pulse Ox 88% on R/A; aj1 15:03 Pulse Ox 98% on 2 lpm NC; aj1 15:45 BP 109 / 51; Pulse 105; Resp 20; Temp 99.2; Pulse Ox 96% on 2 lpm NC; aj1 16:45 BP 114 / 50; Pulse 101; Resp 18; Pulse Ox 96% on 2 lpm NC; aj1 17:49 BP 109 / 58; Pulse 102; Resp 22; Pulse Ox 95% on 2 lpm NC; aj1 11:39 Body Mass Index 28.34 (72.57 kg, 160.02 cm) aa5 ED Course: 11:34 Patient arrived in ED. as 11:35 Arm band placed on. aa5 11:36 Triage completed. aa5 12:17 Prakash Galeas PA is PHCP. cp 12:17 Raul Davis MD is Attending Physician. cp 12:41 Christina Cheung, ABBY is Primary Nurse. aj1 12:58 Influenza Screen (a \\T\\ B) Sent. mh5 12:58 Basic Metabolic Panel Sent. mh5 12:58 CBC with Diff Sent. mh5 12:58 LFT's Sent. mh5 12:58 Magnesium Sent. mh5 12:58 NT PRO-BNP Sent. 5 12:58 PT-INR Sent. 5 12:58 Troponin (emerg Dept Use Only) Sent. 5 12:59 Initial lab(s) drawn, by me, sent to lab. Flu and/or RSV swab sent to lab. Inserted mh5 saline lock: 22 gauge in right antecubital area, using aseptic technique. Blood collected. 13:00 Patient has correct armband on for positive identification. Bed in low position. Call mh5 light in reach. Side rails up X 1. Adult w/ patient. Warm blanket given. panel monitor on. Pulse ox on. NIBP on. 13:14 No provider procedures requiring assistance completed. aj1 13:51 XRAY Chest Pa And Lat (2 Views) In Process Unspecified. EDMS 15:18 Abdirizak Markham DO is Hospitalizing Provider. cp 17:50 Report given to ABBY Staples on 2nd floor. aj1 17:50 Patient admitted, IV remains in place. aj1 Administered Medications: 13:13 Drug: Albuterol 2.5 mg Route: Inhalation; aj1 13:13 Drug: AtroVENT Aerosol 0.5 mg Route: Inhalation; aj1 17:52 Follow up: Response: No adverse reaction aj1 14:02 Drug: Albuterol 2.5 mg Route: Inhalation; aj1 14:30 Drug: Albuterol 2.5 mg Route: Inhalation; aj1 17:51 Follow up: Response: No adverse reaction aj1 14:32 Drug: SOLU-Medrol 125 mg Route: IVP; Site: right antecubital; aj1 14:32 Drug: Magnesium Sulfate 1 grams Route: IVPB; Infused Over: 1 hrs; Site: right aj1 antecubital; 14:32 Drug: Potassium Effervescent Tablet 25 mEq Route: PO; aj1 15:30 Follow up: Response: No adverse reaction aj1 16:13 Drug: NS 0.9% 500 ml Route: IV; Rate: bolus; Site: right antecubital; aj1 17:52 Follow up: IV Status: Completed infusion; IV Intake: 500ml aj1 17:41 Drug: NS 0.9% 500 ml Route: IV; Rate: bolus; Site: right antecubital; aj1 17:41 Drug: Hydrocodone-Acetaminophen (7.5 mg-325 mg) 1 tabs Route: PO; aj1 17:52 Follow up: Response: No adverse reaction; RASS: Alert and Calm (0) aj1 Intake: 17:52 IV: 500ml; Total: 500ml. aj1 Outcome: 15:19 Decision to Hospitalize by Provider. cp 17:51 Admitted to Tele accompanied by tech, via wheelchair, with chart. aj1 17:51 Condition: stable 17:51 Discharge instructions given to patient, Instructed on the need for admit, Demonstrated understanding of instructions. 18:06 Patient left the ED. fatou Signatures: Dispatcher [employer] EDChristina Torres RN RN aj1 Venkata Roe RN RN sg Martinez, Amelia as Calderon, Audri, RN RN aa5 Prakash Galeas PA PA cp Martinez, [facility] Corrections: (The following items were deleted from the chart) 11:37 11:35 Initial Sepsis Screen: Does the patient meet any 2 criteria? No. Patient's aa5 initial sepsis screen is negative. Does the patient have a suspected source of infection? No. Patient's initial sepsis screen is negative. aa5 11:39 11:35 Presenting complaint: aa5 aa5 11:40 11:39 BP 124 / 57; Pulse 95bpm; Resp 18bpm; Spontaneous; Pulse Ox 90% RA; aa5 aa5 11:41 11:39 BP 124 / 57; Pulse 95bpm; Resp 18bpm; Spontaneous; Pulse Ox 90% RA; Temp 98.8F aa5 Temporal; aa5 11:42 11:35 Presenting complaint: Patient states: productive cough. Pt states "I saw my aa5 doctor yesterday and and she wanted me to go to the hospital". Pt's daughter states "he oxygen has been around 87-88% at home" Presenting complaint: Patient states: productive cough. Pt states "I saw my doctor yesterday and and she wanted me to go to the hospital". Pt's daughter states "he oxygen has been around 87-88% at home" aa5 15:03 15:03 Pulse Ox 98% RA; aj1 aj1
--- NOTE | 2019-08-22 16:06 | P.HP ---
Certification for Inpatient Patient admitted to: Inpatient With expected LOS: >2 Midnights Patient will require the following post-hospital care: None Practitioner: I am a practitioner with admitting privileges, knowledge of patient current condition, hospital course, and medical plan of care. Services: Services provided to patient in accordance with Admission requirements found in Title 42 Section 412.3 of the Code of Federal Regulations Patient History Date of Service: 08/22/19 Primary Care Provider: Dr. Brown([facility]); Pulmonary-Dr. Gudino; Cardiology-Dr. Aguilera Reason for admission: Shortness of breath, fever, failed outpatient therapy History of Present Illness: 74-year-old female with history of diabetes mellitus type 2 non- insulin dependent, hypertension, COPD, hypothyroidism, history of DVT on anti coagulation therapy and PVD. Patient reports that she was seen by her PCP yesterday. Patient had had shortness of breath with fever. She reports having a fever 101.4. She has been tired and weak with poor oral intake. She reports cough and congestion. She was seen by her PCP and recommended to be admitted to the hospital. Patient declined. The PCP then gave the patient an injection of antibiotic and sent home with oral antibiotic therapy. She was told to get chest x-ray to evaluate for possible pneumonia. She tried to get a chest x-ray but left without getting CXR at the hospital due to her waiting too long. She therefore went home. She had increase shortness of breath this morning. Cough noted. Her daughter noted that her oxygen saturations were around 86% on room air. She tried using nebulized machine without any success in her improvement of shortness of breath. Her daughter decided to bring her to the ER to be further evaluated. In the ER patient evaluated. She was found to be hypoxic. Blood pressure slightly decreased. EKG shows normal sinus rhythm. Chest x-ray revealed no focal mass or consolidation. He did reveal diffuse interstitial pattern likely progressive fibrosis verses edema versus other etiology. White count 8.2, hemoglobin 12.7. Sodium 138, potassium 3.4, BUN of 17, creatinine 1.0 with a GFR 55. Glucose 115. Lactic acid and pro calcitonin pending. Magnesium low 1.7. Troponin unremarkable. Patient was given IV Solu-Medrol in the ER. She was admitted for further evaluation and treatment. When I saw the patient ER, blood pressure slightly low. Recheck blood pressure 105/51. She was slightly tachycardic at 106. Patient requiring oxygen. Patient stable at this time. Patient appears weak. She was having some chills in the emergency room. Patient reports having recent colonoscopy about 1 week ago. This was to evaluate chronic diarrhea. Patient mentions poor oral intake. Allergies levofloxacin Allergy (Severe, Verified 11/26/18 11:17) Itching/Hives/Rash sulfamethoxazole [From Bactrim] Allergy (Severe, Verified 11/26/18 11:17) Shortness of breath trimethoprim [From Bactrim] Allergy (Severe, Verified 11/26/18 11:17) Shortness of breath codeine Allergy (Unknown, Verified 09/01/16 02:48) Itching/Hives/Rash Sulfa (Sulfonamide Antibiotics) Allergy (Unknown, Verified 09/01/16 02:48) Itching/Hives/Rash Home medications list reviewed: Yes Home Medications: Albuterol Sulfate [Proair Hfa] 1 puff IH Q4H PRN 11/28/18 Diltiazem HCl [Cartia Xt] 180 mg PO DAILY 11/28/18 Fluticasone/Salmeterol [Advair 250-50 Diskus] 1 each IH BID 11/28/18 Levothyroxine [Synthroid*] 0.025 mg PO DAILY 11/28/18 Losartan/Hydrochlorothiazide [Losartan-Hctz 100-12.5 mg Tab] 1 tab PO DAILY 10/04 Lovastatin 10 mg PO DAILY 11/28/18 Metformin HCl 850 mg PO DAILY 11/28/18 Sertraline [Zoloft*] 100 mg PO DAILY 11/28/18 Enoxaparin Sodium [Lovenox] 80 mg SQ BID #10 ml 11/30/18 Warfarin Sodium [Coumadin*] 5 mg PO DAILY 5 PM #60 tab 11/30/18 - Past Medical/Surgical History Diabetic: Yes -: Hypertension -: COPD -: Hypothyroidism -: Non insulin-dependent diabetes type 2 -: Former tobacco use -: History DVT on chronic anti coagulation therapy -: Chronic diarrhea -: Peripheral vascular disease -: Bunionectomy repair with bone graft x2 -: Spinal sx, lumbar back surgery -: Articifial disc -: Breast implants removed, breast augmentation -: Hysterectomy -: Colon polyps Psychosocial/ Personal History: Patient is a . She lives by herself. - Family History Mother -: Diabetes, Kidney disease, Other (see notes) Notes: alzheimers Father -: Hypertension, Lung disease, Cancer Sister -: Other (see notes) Notes: spinal sx - Social History Smoking Status: Former smoker Alcohol use: Yes CD- Drugs: No Caffeine use: Yes Place of Residence: Home Review of Systems General: Fever, Chills, Weakness, As per HPI Eyes: Unremarkable ENT: Nose Congestion, As per HPI Respiratory: Cough, Shortness of Breath, Wheezing, As per HPI Cardiovascular: Unremarkable Gastrointestinal: Diarrhea, As per HPI Genitourinary: Unremarkable Musculoskeletal: Unremarkable Integumentary: Unremarkable Neurological: Weakness, As per HPI Lymphatics: Unremarkable Physical Examination - Physical Exam General: Alert, In no apparent distress, Oriented x3, Cooperative HEENT: Atraumatic, Normocephalic, Other (Dry mucous membranes) Neck: Supple, No Thyromegaly Respiratory: Crackles/rales (Bilateral), Expiratory wheezes (Bilateral) Cardiovascular: Abnormal pulses (Mild sinus tachycardia) Gastrointestinal: Normal bowel sounds, Soft and benign, Non-distended, No tenderness, No masses, No rebound, No guarding Musculoskeletal: No erythema, No tenderness, No warmth Integumentary: No tenderness/swelling, No erythema, No warmth, No cyanosis Neurological: Normal speech, Normal strength at 5/5 x4 extr, Normal tone, Normal affect Lymphatics: No axilla or inguinal lymphadenopathy - Studies Laboratory Data (last 24 hrs) 08/22/19 12:55: PT 14.7 H, INR 1.26 08/22/19 12:55: WBC 8.2, Hgb 12.7, Hct 36.7, Plt Count 267 08/22/19 12:55: Sodium 138, Potassium 3.4 L, BUN 17, Creatinine 1.00, Glucose 115 H, Magnesium 1.7 L, Total Bilirubin 0.6, AST 9 L, ALT 16, Alkaline Phosphatase 62 Microbiology Data (last 24 hrs): 08/22/19 12:47 Nasopharnyx Influenza Type A Antigen Screen - Final 08/22/19 12:47 Nasopharnyx Influenza Type B Antigen Screen - Final Assessment and Plan - Plan Impression: Dyspnea secondary to COPD exacerbation with hypoxia complicated with possible bilateral pneumonia, failed outpatient therapy Acute renal injury likely from dehydration Hypomagnesia and hypokalemia Hypertension Diabetes mellitus type 2 non insulin dependent Hypothyroidism Hyperlipidemia PVD History DVT on chronic anti coagulation therapy Former tobacco use Chronic diarrhea Plan: Dyspnea secondary to COPD exacerbation with hypoxia complicated with possible bilateral pneumonia, failed outpatient therapy: Patient will be admitted for further evaluation and treatment. Will provide prednisone 20 mg 1 pill twice daily. Will continue with COPD medication-Brovana, albuterol, Atrovent. Will provide medication for cough and congestion. Will obtain blood, sputum cultures. Will recheck chest x-ray tomorrow. Will maintain sats above 93%. Respiratory consulted to help with this. Will consult pulmonology who she sees as an outpatient to further evaluate. Await further recommendations. Patient with recent fever and started on oral antibiotic therapy as an outpatient. Likely with underlying pneumonia. Will continue with Rocephin and Zithromax. Will check pro calcitonin and lactic acid. Patient appears slightly dehydrated. Will start IV fluids. Will monitor electrolytes closely. Electrolyte protocol in place. Will restart her Eliquis. Anticipate improvement over the next 2-4 days. Acute renal injury likely from dehydration: Patient will be given 500 bolus of IV fluids in the emergency room. Patient appears to be dehydrated. Patient with recent diarrhea and evaluated by GI with colonoscopy. Will continue with IV fluids and electrolyte protocol. Will hold her losartan/hydrochlorothiazide at this time. Hypomagnesia and hypokalemia: Continue with electrolyte protocol. Monitor lab closely. Hypertension: Blood pressure slightly low. Will provide IV fluids and fluid bolus. Restart diltiazem. Hold if blood pressure less than 120 systolic. Will hold losartan/hydrochlorothiazide at this time due to electrolyte abnormality and dehydration. Diabetes mellitus type 2 non insulin dependent: Will monitor Accu-Cheks. Will provide insulin sliding scale. Hypothyroidism: Will check tsh and free T4. Continue with home medication. Hyperlipidemia: Continue home medication. PVD: Will monitor closely.. History DVT on chronic anti coagulation therapy: Continue with Eliquis. Former tobacco use: Patient reports that she stop smoking recently. Continue tobacco cessation. Chronic diarrhea: Patient had recent colonoscopy. Will check stool studies and evaluate for C diff colitis. Will provide lactobacillus and provide Imodium as needed. Discharge Plan: Home Plan to discharge in: Greater than 2 days - Advance Directives Does patient have a Living Will: No Does patient have a Durable POA for Healthcare: Yes - Code Status/Comfort Care Code Status Assessed: Yes (Patient is full code) Time Spent Managing Pts Care (In Minutes): 55
[2019-08-22] MEDS ORDERED: NA CHLORIDE 0.9% 500 ML ONE (16:11)
[2019-08-22 18:14] LABS: Urine Blood 1+ (NEG); Urine Glucose 1+ (NEG); Urine Protein NEGATIVE (NEG); Urine Specific Gravity 1.015 (1.005-1.030); Urine pH 5.5 (5.0-7.0)
[2019-08-22] MEDS ORDERED: ONDANSETRON 4 MG/2 ML VIAL IV PRN (18:23)
[2019-08-22] MEDS ORDERED: ACETAMINOPHEN 500 MG TAB PO PRN (18:23)
[2019-08-22] MEDS ORDERED: BENZONATATE 100 MG CAP PO PRN (18:23)
[2019-08-22] MEDS ORDERED: LOPERAMIDE HCL 2 MG CAPSULE PO PRN (18:23)
[2019-08-22] MEDS ORDERED: IPRATROPIUM BROM 0.5MG/2.5ML NEB PRN (18:23)
[2019-08-22] MEDS ORDERED: ALBUTEROL 2.5 MG/3 ML NEB SOL NEB PRN (18:23)
[2019-08-22] MEDS: INSULIN -REGULAR HUMAN 50 UNIT/0.5 ML ML SQ SCH ×2 (18:23→23:08)
[2019-08-22] MEDS: ARFORMOTEROL TARTRATE 15 MCG/2 ML VIAL.NEB NEB SCH (19:50)
[2019-08-22] MEDS: ATORVASTATIN 10 MG TAB PO SCH (20:53)
[2019-08-22] MEDS: LACTOBACILLUS/ACIDOPHILUS TAB PO SCH (20:53)
[2019-08-22] MEDS: SERTRALINE HCL 100 MG TAB PO SCH (20:53)
[2019-08-22] MEDS: FAMOTIDINE 20 MG TAB PO SCH (20:54)
[2019-08-22] MEDS: CEFTRIAXONE/SWI 1gm 1 GM/10 ML SYR IVP SCH (20:54)
[2019-08-22] MEDS: GUAIFENESIN 600 MG SA TAB PO SCH (20:54)
[2019-08-22] MEDS: APIXABAN 2.5 MG TABLET PO SCH (20:56)
[2019-08-22] MEDS: NA CHLORIDE 0.9% 1,000 ML IV SCH (20:57)
[2019-08-22] MEDS ORDERED: AZITHROMYCIN IV 500 MG in NA CHLORIDE 0.9% 250 ML IVPB SCH (21:00)
[2019-08-22] MEDS ORDERED: FENTANYL CITR 100 MCG/2 ML IV PRN (21:27)
[2019-08-22] MEDS ORDERED: METHYLPREDNISOLONE 125 MG INJ IV ONE (21:27)
[2019-08-22 22:06] LABS: Urine Appearance CLEAR; Urine Bilirubin NEGATIVE (NEG); Urine Blood TRACE (NEG); Urine Color YELLOW; Urine Glucose 2+ (NEG); Urine Protein NEGATIVE (NEG); Urine Urobilinogen 0.2 mg/dL (0.2-1.0); Urine pH 5.5 (5.0-7.0)
[2019-08-22 22:20] LABS: Urine Microscopic Reflex ORDER UMIC
[2019-08-22 22:21] LABS: Urine Bacteria <20 /HPF (<20); Urine Culture Reflex Order REFLEXED; Urine Mucus 1+ /HPF (NONE SEEN)
[2019-08-22] MEDS: TRAZODONE 50 MG TABLET PO PRN (22:56)
[2019-08-22] MEDS: HYDROCODONE/APAP 10/325 TAB PO PRN (22:59)
[2019-08-23] MEDS ORDERED: METHYLPREDNISOLONE 125 MG INJ IV SCH (02:00)
[2019-08-23 02:06] VITALS: BMI 40.0
[2019-08-23] MEDS: LEVOTHYROXINE SOD 0.025 MG TAB PO SCH (05:36)
[2019-08-23] MEDS: HYDROCODONE/APAP 10/325 TAB PO PRN ×2 (05:36→20:13)
[2019-08-23] MEDS: METHYLPREDNISOLONE 125 MG INJ IV SCH ×2 (05:39→12:12)
[2019-08-23 05:40] LABS: Absolute Lymphocytes (CBC) 0.8 K/uL (0.7-4.9); Basophils % 0.3 % (0-1.3); Hematocrit 37.6 % (36.0-45.0); Lymphocytes % 8.7 % (15.3-44.8); MPV 7.5 fL (7.6-11.3); RBC Red Blood Cell Count 4.02 M/uL (3.86-4.86)
[2019-08-23 06:07] LABS: Potassium 4.6 mmol/L (3.5-5.1); Thyroid Stimulating Hormone 0.692 uIU/mL (0.360-3.740)
[2019-08-23] MEDS: INSULIN -REGULAR HUMAN 50 UNIT/0.5 ML ML SQ SCH ×4 (07:30→21:00)
[2019-08-23 07:39] LABS: Blood Morphology Comment NOT SEEN (NOT SEEN); Platelet Estimate ADEQ
[2019-08-23] MEDS: NA CHLORIDE 0.9% 1,000 ML IV SCH (07:43)
--- NOTE | 2019-08-23 08:33 | P.PN ---
Subjective Date of Service: 08/23/19 Primary Care Provider: Dr. Brown([facility]); Pulmonary-Dr. Gudino; Cardiology-Dr. Aguilera Chief Complaint: Shortness of breath, fever, failed outpatient therapy Subjective: Improving, Doing well Physical Examination - Vital Signs Temperature: 97.4 F Blood Pressure: 111/57 Pulse: 82 Respirations: 18 Pulse Ox (%): 93 - Physical Exam General: Alert, In no apparent distress, Oriented x3, Cooperative HEENT: Atraumatic Neck: Supple Respiratory: Expiratory wheezes (Mild bilateral. Better aeration bilateral) Cardiovascular: Normal pulses, Regular rate/rhythm Gastrointestinal: Normal bowel sounds, Soft and benign, Non-distended Musculoskeletal: No erythema, No tenderness, No warmth Integumentary: No tenderness/swelling, No erythema, No warmth, No cyanosis Neurological: Normal speech, Normal strength at 5/5 x4 extr, Normal tone, Normal affect - Studies Laboratory Data (last 24 hrs) 08/22/19 12:55: PT 14.7 H, INR 1.26 08/22/19 12:55: WBC 8.2, Hgb 12.7, Hct 36.7, Plt Count 267 08/22/19 12:55: Sodium 138, Potassium 3.4 L, BUN 17, Creatinine 1.00, Glucose 115 H, Magnesium 1.7 L, Total Bilirubin 0.6, AST 9 L, ALT 16, Alkaline Phosphatase 62 Microbiology Data (last 24 hrs): 08/22/19 12:47 Nasopharnyx Influenza Type A Antigen Screen - Final 08/22/19 12:47 Nasopharnyx Influenza Type B Antigen Screen - Final Medications List Reviewed: Yes Assessment & Plan Discharge Plan: Home Plan to discharge in: 24 Hours Physician Review Additional Text: Impression: Dyspnea secondary to COPD exacerbation with hypoxia complicated with possible bilateral pneumonia, failed outpatient therapy Acute renal injury likely from dehydration Hypomagnesia and hypokalemia Hypertension Diabetes mellitus type 2 non insulin dependent Hypothyroidism Hyperlipidemia PVD History DVT on chronic anti coagulation therapy Former tobacco use Chronic diarrhea Plan: Dyspnea secondary to COPD exacerbation with hypoxia complicated with possible bilateral pneumonia, failed outpatient therapy: Patient has improved. Will continue with prednisone and COPD medication-Brovana, albuterol, Atrovent. Pulmonology to assess today. Will recheck chest x-ray today. Patient slightly dehydrated. Patient improved with IV hydration. Will continue with IV fluids. If taking good oral intake then will discontinue. Will order echocardiogram to evaluate for possible underlying CHF. Physical therapy ordered. Will try to wean off oxygen. Patient may require oxygen at discharge, social work to help with this along with the possibility of home health and physical therapy at discharge. Continue with Rocephin and Zithromax. Will discuss case further with pulmonology. Anticipate discharge in the next 24-48 hr. Acute renal injury likely from dehydration: Patient has improved. Will adjust IV fluids. If taking good oral intake then will discontinue IV fluids. Will continue to hold losartan/hydrochlorothiazide at this time. Hypomagnesia and hypokalemia: Continue with electrolyte protocol. Monitor lab closely. Hypertension: Blood pressure remained stable. Patient continues with diltiazem. Will continue to hold losartan/hydrochlorothiazide. Will monitor and adjust medication appropriately. Will order echocardiogram to further evaluate. Diabetes mellitus type 2 non insulin dependent: Will monitor Accu-Cheks. Will provide insulin sliding scale. Hypothyroidism: Tsh and free T4 within normal range. Continue with home medication. Hyperlipidemia: Continue home medication. PVD: Will monitor closely.. History DVT on chronic anti coagulation therapy: Continue with Eliquis. Former tobacco use: Patient reports that she stop smoking recently. Continue tobacco cessation. Chronic diarrhea: Patient had recent colonoscopy. Will check stool studies and evaluate for C diff colitis S patient reports chronic diarrhea. Diarrhea improved. Will provide lactobacillus and provide Imodium as needed. Time Spent Managing Pts Care (In Minutes): 55
[2019-08-23] MEDS: ARFORMOTEROL TARTRATE 15 MCG/2 ML VIAL.NEB NEB SCH ×2 (08:35→20:00)
[2019-08-23] MEDS: LACTOBACILLUS/ACIDOPHILUS TAB PO SCH ×2 (08:55→20:16)
[2019-08-23] MEDS: predniSONE 20 MG TAB PO SCH ×2 (08:56→20:18)
[2019-08-23] MEDS: DILTIAZEM HCL 180 MG SR CAP PO SCH (08:56)
[2019-08-23] MEDS: FAMOTIDINE 20 MG TAB PO SCH ×2 (08:56→20:17)
[2019-08-23] MEDS: APIXABAN 2.5 MG TABLET PO SCH ×2 (08:56→20:17)
[2019-08-23] MEDS: CEFTRIAXONE/SWI 1gm 1 GM/10 ML SYR IVP SCH (08:57)
[2019-08-23] MEDS: GUAIFENESIN 600 MG SA TAB PO SCH ×2 (08:57→20:16)
[2019-08-23] MEDS: AZITHROMYCIN 250 MG TAB PO SCH (08:59)
[2019-08-23] MEDS ORDERED: NACHLORIDE 0.45% 1,000 ML IV SCH (09:00)
--- NOTE | 2019-08-23 09:33 | RAD REPORT ---
EXAM DESCRIPTION: RAD - Chest Pa And Lat (2 Views) - 08/23/2019 9:27 am CLINICAL HISTORY: Follow up COPD, evaluate for pneumonia Chest pain. COMPARISON: Chest Pa And Lat (2 Views) dated 08/22/2019; Chest Single View dated 09/01/2016; Chest Si ngle View dated 09/01/2016; Chest Single View dated 08/31/2016 FINDINGS: The lungs are mildly emphysematous but clear. The heart is normal in size. No displaced fr actures. IMPRESSION: Mild COPD
--- NOTE | 2019-08-23 11:46 | P.CNS ---
Date of Consult: 08/23/19 Primary Care Provider: Dr. Brown([facility]); Pulmonary-Dr. Gudino; Cardiology-Dr. Aguilera Chief Complaint: Shortness of breath, fever, failed outpatient therapy History of Present Illness: Patient is 74 years of age with a history of COPD admitted with worsening dyspnea since Tuesday as some chest discomfort that resolved in addition to cough she feeling better today. Patient is compliant with her bronchodilators at home has and followed up with me for quite some time her nebulizers have all at some fever yesterday patient took a course of prednisone at home Allergies levofloxacin Allergy (Severe, Verified 11/26/18 11:17) Itching/Hives/Rash sulfamethoxazole [From Bactrim] Allergy (Severe, Verified 11/26/18 11:17) Shortness of breath trimethoprim [From Bactrim] Allergy (Severe, Verified 11/26/18 11:17) Shortness of breath codeine Allergy (Unknown, Verified 09/01/16 02:48) Itching/Hives/Rash Sulfa (Sulfonamide Antibiotics) Allergy (Unknown, Verified 09/01/16 02:48) Itching/Hives/Rash Home Medications: Albuterol Sulfate [Proair Hfa] 1 puff IH Q4H PRN 11/28/18 Diltiazem HCl [Cartia Xt] 180 mg PO DAILY 11/28/18 Fluticasone/Salmeterol [Advair 250-50 Diskus] 1 each IH BID 11/28/18 Levothyroxine [Synthroid*] 0.025 mg PO DAILY 11/28/18 Losartan/Hydrochlorothiazide [Losartan-Hctz 100-12.5 mg Tab] 1 tab PO DAILY 10/04 Lovastatin 20 mg PO DAILY 11/28/18 Metformin HCl 850 mg PO DAILY 11/28/18 Sertraline [Zoloft*] 100 mg PO DAILY 11/28/18 Apixaban [Eliquis] 2.5 mg PO BID 08/22/19 Tizanidine [Zanaflex] 4 mg PO PRN PRN 08/22/19 Trazodone [Desyrel] 150 mg PO BEDTIME 08/22/19 - Past Medical/Surgical History Diabetic: Yes -: Hypertension -: COPD -: Hypothyroidism -: Non insulin-dependent diabetes type 2 -: Former tobacco use -: History DVT on chronic anti coagulation therapy -: Chronic diarrhea -: Peripheral vascular disease -: Bunionectomy repair with bone graft x2 -: Spinal sx, lumbar back surgery -: Articifial disc -: Breast implants removed, breast augmentation -: Hysterectomy -: Colon polyps Psychosocial/ Personal History: Patient is a . She lives by herself. - Family History Mother Medical History: Diabetes, Kidney disease, Other (see notes) Notes: alzheimers Father Medical History: Hypertension, Lung disease, Cancer Sister Medical History: Other (see notes) Notes: spinal sx - Social History Smoking Status: Current every day smoker Alcohol use: Yes CD- Drugs: No Caffeine use: Yes Place of Residence: Home Review of Systems 10-point ROS is otherwise unremarkable General: Weakness Respiratory: Cough, Shortness of Breath Physical Examination Temp Pulse Resp BP Pulse Ox 97.4 F 82 18 111/57 L 93 08/23/19 08:33 08/23/19 08:33 08/23/19 08:33 08/23/19 08:33 08/23/19 08:33 General: In no apparent distress, Oriented x3 Respiratory: Expiratory wheezes Cardiovascular: No edema, Normal pulses Gastrointestinal: Normal bowel sounds, Soft and benign Laboratory Data (last 24 hrs) 08/22/19 12:55: PT 14.7 H, INR 1.26 08/22/19 12:55: WBC 8.2, Hgb 12.7, Hct 36.7, Plt Count 267 08/22/19 12:55: Sodium 138, Potassium 3.4 L, BUN 17, Creatinine 1.00, Glucose 115 H, Magnesium 1.7 L, Total Bilirubin 0.6, AST 9 L, ALT 16, Alkaline Phosphatase 62 - Problems (1) COPD exacerbation Current Visit: No Status: Acute Plan: Patient is 74 years of age admitted with COPD exacerbation compliant with her therapy chest x-rays clear there is no evidence of infection patient can be discharged home on her Advair he will need a refill for her nebulized bronchodilators prednisone 10 mg twice a day for 10 days and levofloxacin for 5 days 500 mg cultures and pro calcitonin level negative oxygenation vital signs stable
--- NOTE | 2019-08-23 11:48 | ECHO ---
HEIGHT: 4 ft 5 in WEIGHT: 160 lb 0 oz DATE OF STUDY: 08/23/[address]: Abdirizak Markham DO 2-DIMENSIONAL: YES M.MODE: YES DOPPLER: YES COLOR FLOW: YES TDS: NO PORTABLE: NO DEFINITY: NO BUBBLE STUDY: NO DIAGNOSIS: SHORTNESS OF BREATH, EVALUATE FOR CONGESTIVE HEART FAILURE CARDIAC HISTORY: CATHERIZATION: NO SURGERY: NO PROSTHETIC VALVE: NO PACEMAKER: NO MEASUREMENTS (cm) DIASTOLIC (NORMALS) SYSTOLIC (NORMALS) IVSd 0.8 (0.6-1.2) LA Diam 3.0 (1.9-4.0) LVEF 77% LVIDd 3.9 (3.5-5.7) LVIDs 2.2 (2.0-3.5) %FS 45% LVPWd 0.8 (0.6-1.2) Ao Diam 2.2 (2.0-3.7) 2 DIMENSIONAL ASSESSMENT: RIGHT ATRIUM: NORMAL LEFT ATRIUM: NORMAL RIGHT VENTRICLE: NORMAL LEFT VENTRICLE: NORMAL TRICUSPID VALVE: NORMAL MITRAL VALVE: NORMAL PULMONIC VALVE: NORMAL AORTIC VALVE: NORMAL PERICARDIAL EFFUSION: NONE AORTIC ROOT: NORMAL LEFT VENTRICULAR WALL MOTION: NORMAL DOPPLER/COLOR FLOW: NORMAL COMMENTS: NORMAL 2D ECHOCARDIOGRAM WITH DOPPLER. NO WALL MOTION ABNORMALITY. NO EFFUSION. TECHNOLOGIST: Garett MOLINA
[2019-08-23] MEDS: ATORVASTATIN 10 MG TAB PO SCH (20:17)
[2019-08-23] MEDS: SERTRALINE HCL 100 MG TAB PO SCH (20:17)
[2019-08-23] MEDS: TRAZODONE 50 MG TABLET PO PRN (22:25)
[2019-08-24] MEDS: HYDROCODONE/APAP 10/325 TAB PO PRN (01:12)
[2019-08-24 05:34] LABS: Absolute Lymphocytes (CBC) 1.1 K/uL (0.7-4.9); Basophils % 0.1 % (0-1.3); Hematocrit 33.6 % (36.0-45.0); Lymphocytes % 9.3 % (15.3-44.8); MPV 7.7 fL (7.6-11.3); RBC Red Blood Cell Count 3.61 M/uL (3.86-4.86)
[2019-08-24 05:54] LABS: Magnesium 1.9 mg/dL (1.8-2.4); Potassium 4.5 mmol/L (3.5-5.1)
[2019-08-24] MEDS: LEVOTHYROXINE SOD 0.025 MG TAB PO SCH (06:07)
[2019-08-24] MEDS: INSULIN -REGULAR HUMAN 50 UNIT/0.5 ML ML SQ SCH (07:30)
[2019-08-24] MEDS: ARFORMOTEROL TARTRATE 15 MCG/2 ML VIAL.NEB NEB SCH (08:10)
[2019-08-24] MEDS: APIXABAN 2.5 MG TABLET PO SCH (08:42)
[2019-08-24] MEDS: CEFTRIAXONE/SWI 1gm 1 GM/10 ML SYR IVP SCH (08:42)
[2019-08-24] MEDS: AZITHROMYCIN 250 MG TAB PO SCH (08:42)
[2019-08-24] MEDS: LACTOBACILLUS/ACIDOPHILUS TAB PO SCH (08:43)
[2019-08-24] MEDS: GUAIFENESIN 600 MG SA TAB PO SCH (08:43)
[2019-08-24] MEDS: FAMOTIDINE 20 MG TAB PO SCH (08:43)
[2019-08-24] MEDS: predniSONE 20 MG TAB PO SCH (08:43)
[2019-08-24] MEDS: DILTIAZEM HCL 180 MG SR CAP PO SCH (08:45)
[2019-08-24 08:50] VITALS: BP 131/63
--- NOTE | 2019-08-24 09:09 | P.DS ---
Admission Date: 08/22/19 Discharge Date: 08/24/19 Primary Care Provider: Dr. Brown([facility]); Pulmonary-Dr. Gudino; Cardiology-Dr. Aguilera Disposition: DC HOME/HOME HEALTH CARE Discharge Condition: GOOD Reason for Admission: Shortness of breath, fever, failed outpatient therapy Consultations: Pulmonary-Dr. Gudino Procedures: ECHO: EF 77% LEFT VENTRICULAR WALL MOTION: NORMAL DOPPLER/COLOR FLOW: NORMAL COMMENTS: NORMAL 2D ECHOCARDIOGRAM WITH DOPPLER. NO WALL MOTION ABNORMALITY. NO EFFUSION. Follow up CXR: COMPARISON: Chest Pa And Lat (2 Views) dated 08/22/2019; Chest Single View dated 09/01/2016; Chest Single View dated 09/01/2016; Chest Single View dated FINDINGS: The lungs are mildly emphysematous but clear. The heart is normal in size. No displaced fractures. 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 Patient reports that she was seen by her PCP yesterday. Patient had had shortness of breath with fever. She reports having a fever 101.4. She has been tired and weak with poor oral intake. She reports cough and congestion. She was seen by her PCP and recommended to be admitted to the hospital. Patient declined. The PCP then gave the patient an injection of antibiotic and sent home with oral antibiotic therapy. She was told to get chest x-ray to evaluate for possible pneumonia. She tried to get a chest x-ray but left without getting CXR at the hospital due to her waiting too long. She therefore went home. She had increase shortness of breath this morning. Cough noted. Her daughter noted that her oxygen saturations were around 86% on room air. She tried using nebulized machine without any success in her improvement of shortness of breath. Her daughter decided to bring her to the ER to be further evaluated. In the ER patient evaluated. She was found to be hypoxic. Blood pressure slightly decreased. EKG shows normal sinus rhythm. Chest x-ray revealed no focal mass or consolidation. He did reveal diffuse interstitial pattern likely progressive fibrosis verses edema versus other etiology. White count 8.2, hemoglobin 12.7. Sodium 138, potassium 3.4, BUN of 17, creatinine 1.0 with a GFR 55. Glucose 115. Lactic acid and pro calcitonin pending. Magnesium low 1.7. Troponin unremarkable. Patient was given IV Solu-Medrol in the ER. She was admitted for further evaluation and treatment. When I saw the patient ER, blood pressure slightly low. Recheck blood pressure 105/51. She was slightly tachycardic at 106. Patient requiring oxygen. Patient stable at this time. Patient appears weak. She was having some chills in the emergency room. Patient reports having recent colonoscopy about 1 week ago. This was to evaluate chronic diarrhea. Patient mentions poor oral intake. Hospital Course: Patient presented with Dyspnea secondary to COPD exacerbation with hypoxia complicated with failed outpatient therapy. Patient had been given treatment including antibiotic prior to admission. The patient was assessed in the emergency room and admitted for COPD exacerbation with possible pneumonia. Patient was given IV antibiotic therapy and COPD medication. Echocardiogram unremarkable with normal ejection fraction. Patient seen and evaluated by pulmonology. Patient continued to do well. At discharge patient back to her baseline. At discharge she is without significant shortness of breath. Chest x -ray shows no evidence of pneumonia. At discharge patient will continue the antibiotic therapy that had been prescribed as an outpatient. She is to finish this medication. Education on COPD provided. At discharge patient will continue with prednisone 10 mg 1 pill twice daily for 5 days then 1 pill once daily for 5 days. Patient will continue with her COPD medication: Advair 1 puff twice daily, Pro air 2 puffs 3 times a day as needed for shortness of breath. Albuterol/Atrovent nebulized solution 1 unit dose 3 times a day as needed for shortness of breath will also be provided. Compliance with medication addressed in detail. Recommend to follow up with pulmonology in 1-2 weeks to follow up this hospitalization and continue her care. Patient will consider home health and physical therapy at discharge. Patient also presented with acute renal injury likely from dehydration. This improved with IV fluids. This has remained stable. Recommend to recheck BMP in 1-2 weeks to monitor stability. Patient with hypertension. Medications were adjusted during the course of her stay. Patient continued with diltiazem with good control. Losartan/ hydrochlorothiazide were held. At discharge blood pressure remained stable on diltiazem. Recommend to continue diltiazem XT 180 mg daily. Recommend to continue to hold losartan/hydrochlorothiazide. She is to monitor blood pressures daily. If blood pressure remains above 150/90 then losartan may need to be restarted at a low dose. This can be further addressed by her PCP. Will recommend to discontinue hydrochlorothiazide entirely. Patient with diabetes mellitus type 2 non insulin independent. Blood sugar stable this time. Patient will continue with current medication metformin 150 mg daily as directed. Recommend to maintain blood sugars less 140 fasting and less than 200 after meals. Further adjustment can be done by her PCP. Patient with hypothyroidism. Tsh and free T4 within normal range. At discharge she will continue with her medication levothyroxine 25 mcg daily. Patient with hyperlipidemia. At discharge she will continue with her medication lovastatin 20 mg daily. Patient with history of DVT on chronic anti coagulation therapy. At discharge she will continue with Eliquis 2.5 mg twice daily. Patient with former tobacco use. Patient recently quit smoking. Continue with tobacco cessation as an outpatient. Patient with chronic diarrhea. Patient recently had colonoscopy. At discharge patient may continue with lactobacillus twice daily. Patient may take Imodium as needed. Recommend follow up with GI. Patient with depression. Patient will continue with Zoloft 100 mg daily and trazodone 150 mg at bedtime. Vital Signs/Physical Exam: Temp Pulse Resp BP Pulse Ox 97.2 F 80 17 131/63 92 08/24/19 04:00 08/24/19 08:45 08/24/19 04:00 08/24/19 08:45 08/24/19 04:00 General: Alert, In no apparent distress, Oriented x3, Cooperative HEENT: Atraumatic Neck: Supple Respiratory: Clear to auscultation bilaterally, Normal air movement Cardiovascular: Normal pulses, Regular rate/rhythm Gastrointestinal: Normal bowel sounds, Soft and benign, Non-distended, No tenderness, No masses, No rebound, No guarding Musculoskeletal: No erythema, No tenderness, No warmth Integumentary: No tenderness/swelling, No erythema, No warmth, No cyanosis Neurological: Normal speech, Normal strength at 5/5 x4 extr, Normal tone, Normal affect Laboratory Data at Discharge: WBC 12.0 K/uL (4.3-10.9) H D 08/24/19 05:16 Hgb 11.3 g/dL (12.0-15.0) L 08/24/19 05:16 Hct 33.6 % (36.0-45.0) L 08/24/19 05:16 Plt Count 294 K/uL (152-406) 08/24/19 05:16 PT 14.7 SECONDS (9.5-12.5) H 08/22/19 12:55 INR 1.26 08/22/19 12:55 Sodium 142 mmol/L (136-145) 08/24/19 05:16 Potassium 4.5 mmol/L (3.5-5.1) 08/24/19 05:16 BUN 16 mg/dL (7-18) 08/24/19 05:16 Creatinine 0.86 mg/dL (0.55-1.3) 08/24/19 05:16 Glucose 170 mg/dL (74-106) H 08/24/19 05:16 Magnesium 1.9 mg/dL (1.8-2.4) 08/24/19 05:16 Total Bilirubin 0.6 mg/dL (0.2-1.0) 08/22/19 12:55 AST 9 U/L (15-37) L 08/22/19 12:55 ALT 16 U/L (12-78) 08/22/19 12:55 Alkaline Phosphatase 62 U/L (45-117) 08/22/19 12:55 Home Medications: Diltiazem HCl [Cartia Xt] 180 mg PO DAILY 11/28/18 Levothyroxine [Synthroid*] 0.025 mg PO DAILY 11/28/18 Lovastatin 20 mg PO DAILY 11/28/18 Metformin HCl 850 mg PO DAILY 11/28/18 Sertraline [Zoloft*] 100 mg PO DAILY 11/28/18 Apixaban [Eliquis *] 2.5 mg PO BID 08/22/19 Trazodone [Desyrel*] 150 mg PO BEDTIME 08/22/19 Albuterol Neb [Proventil 0.083% Neb Soln] 2.5 mg NEB TID PRN #90 amp 08/24/19 Albuterol Sulfate [Proair Hfa] 2 puff IH TID PRN #1 hfa.aer.ad 08/24/19 Fluticasone/Salmeterol [Advair 250-50 Diskus] 1 each IH BID #1 blst.w.dev Ipratropium Neb [Atrovent*] 0.5 mg NEB TID PRN #90 amp 08/24/19 Lactobacillus Acidophilus [Acidophilus Lactobacilli] 1 each PO BID #60 capsule 08/24/19 predniSONE [Deltasone*] 10 mg PO SEECOM #15 tab 08/24/19 New Medications: Albuterol Neb [Proventil 0.083% Neb Soln] 2.5 mg NEB TID PRN #90 amp PRN Reason: Shortness Of Breath Albuterol Sulfate [Proair Hfa] 2 puff IH TID PRN #1 hfa.aer.ad PRN Reason: Shortness Of Breath Fluticasone/Salmeterol [Advair 250-50 Diskus] 1 each IH BID #1 blst.w.dev Ipratropium Neb [Atrovent*] 0.5 mg NEB TID PRN #90 amp PRN Reason: Shortness Of Breath Lactobacillus Acidophilus [Acidophilus Lactobacilli] 1 each PO BID #60 capsule predniSONE [Deltasone*] 10 mg PO SEECOM #15 tab Patient Discharge Instructions: 1. Recommend follow up with her PCP within 1 week to follow up this hospitalization. 2. Patient presented with Dyspnea secondary to COPD exacerbation with hypoxia complicated with failed outpatient therapy. Patient had been given treatment including antibiotic prior to admission. The patient was assessed in the emergency room and admitted for COPD exacerbation with possible pneumonia. Patient was given IV antibiotic therapy and COPD medication. Echocardiogram unremarkable with normal ejection fraction. Patient seen and evaluated by pulmonology. Patient continued to do well. At discharge patient back to her baseline. At discharge she is without significant shortness of breath. Chest x-ray shows no evidence of pneumonia. At discharge patient will continue the antibiotic therapy that had been prescribed as an outpatient. She is to finish this medication. Education on COPD provided. At discharge patient will continue with prednisone 10 mg 1 pill twice daily for 5 days then 1 pill once daily for 5 days. Patient will continue with her COPD medication: Advair 1 puff twice daily, Pro air 2 puffs 3 times a day as needed for shortness of breath. Albuterol/Atrovent nebulized solution 1 unit dose 3 times a day as needed for shortness of breath will also be provided. Compliance with medication addressed in detail. Recommend to follow up with pulmonology in 1-2 weeks to follow up this hospitalization and continue her care. Patient will consider home health and physical therapy at discharge. 3. Patient also presented with acute renal injury likely from dehydration. This improved with IV fluids. This has remained stable. Recommend to recheck BMP in 1-2 weeks to monitor stability. 4. Patient with hypertension. Medications were adjusted during the course of her stay. Patient continued with diltiazem with good control. Losartan/ hydrochlorothiazide were held. At discharge blood pressure remained stable on diltiazem. Recommend to continue diltiazem XT 180 mg daily. Recommend to continue to hold losartan/hydrochlorothiazide. She is to monitor blood pressures daily. If blood pressure remains above 150/90 then losartan may need to be restarted at a low dose. This can be further addressed by her PCP. Will recommend to discontinue hydrochlorothiazide entirely. 5. Patient with diabetes mellitus type 2 non insulin independent. Blood sugar stable this time. Patient will continue with current medication metformin 150 mg daily as directed. Recommend to maintain blood sugars less 140 fasting and less than 200 after meals. Further adjustment can be done by her PCP. 6. Patient with hypothyroidism. Tsh and free T4 within normal range. At discharge she will continue with her medication levothyroxine 25 mcg daily. 7. Patient with hyperlipidemia. At discharge she will continue with her medication lovastatin 20 mg daily. 8. Patient with history of DVT on chronic anti coagulation therapy. At discharge she will continue with Eliquis 2.5 mg twice daily. 9. Patient with former tobacco use. Patient recently quit smoking. Continue with tobacco cessation as an outpatient. 10. Patient with chronic diarrhea. Patient recently had colonoscopy. At discharge patient may continue with lactobacillus twice daily. Patient may take Imodium as needed. Recommend follow up with GI. 11. Patient with depression. Patient will continue with Zoloft 100 mg daily and trazodone 150 mg at bedtime. Diet: AHA Activity: Fall precautions Time spent managing pt's care (in minutes): 55
[2019-08-24 09:32] VITALS: O2SAT 95
[2019-08-24 09:36] VITALS: TEMP 97
--- OUTSIDE RECORDS SUMMARY | 2019-08-27 00:55 | XMS REPORT ---
:1945 [facility] Address [address] [place] [address] [address] [place] [address] Care Team Providers Name Role Phone Unavailable Unavailable Unavailable Problems This patient has no known problems. Allergies, Adverse Reactions, Alerts This patient has no known allergies or adverse reactions. Medications This patient has no known medications.
--- OUTSIDE RECORDS SUMMARY | 2019-08-27 00:56 | XMS REPORT | Summary of Care ---
:1945 Author Organization [facility] Address [address] [place] [address] Care Team Providers Name Role Phone Kate Brown MD Primary Care Provider Reason for Visit Reason Comments Medicare Annual Wellness Encounter Details Date Type Department Care Team Description 06/04/2019 Pre Visit Outreach [facility] Family Kate Brown Medicare Annual Medicine - Harinder Hsu MD Wellness [address] [place] [address] [id number] Allergies Active Allergy Reactions Severity Noted Date Comments Codeine Other - See comments 12/07/2016 Levofloxacin Palpitations 12/07/2016 Sulfamethoxazole Shortness of Breath 12/07/2016 documented as of this encounter (statuses as of 06/04/2019) Medications Medication Sig Dispensed Refills Start Date End Date Status CALCIUM PHOSPHATE TRIB/VIT Take by 0 Active D3 (CITRACAL + D3, CALCIUM mouth. PHOS, ORAL)Indications: Vitamin D deficiency albuterol 2.5 mg /3 mL Inhale 3 mL 100 Vial 1 10/05/2017 Active (0.083 %) nebulizer every 4 (four) solutionIndications: Acute hours as bacterial bronchitis, COPD needed for exacerbation Wheezing or Shortness of Breath. ipratropium 0.02 % Inhale 2.5 mL 100 Vial 1 10/05/2017 Active nebulizer every 4 (four) solutionIndications: Acute hours as bacterial bronchitis, COPD needed for exacerbation Wheezing or Shortness of Breath. psyllium seed, with Take by 0 Active dextrose, (FIBER ORAL) mouth. TIZANIDINE 4 mg TAKE 1/2 TO 1 270 tablet 2 11/02/2018 Active tabletIndications: Muscle TABLET BY spasm of back MOUTH EVERY 8 HOURS NEEDED FOR MUSCLE PAIN OR SPASM losartan-hydrochlorothiazi Take 1 tablet 90 tablet 1 12/04/2018 Active de 100-12.5 mg per by mouth tabletIndications: daily. Essential hypertension lovastatin 10 mg Take 1 tablet 90 tablet 1 12/04/2018 Active tabletIndications: by mouth Hypercholesterolemia daily. metFORMIN 850 mg Take 1 tablet 90 tablet 1 12/04/2018 Active tabletIndications: by mouth every Controlled type 2 diabetes evening. mellitus without complication, without long-term current use of insulin fluticasone-salmeterol Inhale 1 Puff 1 Each 5 12/04/2018 Active (ADVAIR DISKUS) 250-50 every 12 mcg/dose inhalation (twelve) diskIndications: Chronic hours. obstructive pulmonary disease, unspecified COPD type albuterol (PROAIR HFA) 90 Inhale 2 Puffs 8.5 g 1 12/04/2018 Active mcg/actuation every 6 (six) inhalerIndications: hours as Chronic obstructive needed for pulmonary disease, Wheezing or unspecified COPD type Shortness of Breath. CARTIA XT 180 mg 24 hr TAKE 1 CAPSULE 90 capsule 3 03/21/2019 Active capsuleIndications: BY MOUTH DAILY Essential hypertension SERTRALINE 100 mg TAKE 1 TABLET 90 tablet 3 03/21/2019 Active tabletIndications: Chronic BY MOUTH EVERY insomnia, History of MORNING depression varenicline (CHANTIX Take 1 tablet 56 tablet 4 04/02/2019 Active CONTINUING MONTH BOX) 1 mg by mouth 2 tabletIndications: Tobacco (two) times dependence daily. LEVOTHYROXINE 25 mcg TAKE 1 TABLET 90 tablet 1 04/09/2019 Active tabletIndications: BY MOUTH EVERY Acquired hypothyroidism MORNING apixaban 2.5 mg Take 1 tablet 60 tablet 5 06/01/2019 Active tabletIndications: Chronic by mouth 2 anticoagulation (two) times daily. documented as of this encounter (statuses as of 06/04/2019) Active Problems Problem Noted Date PAD (peripheral artery disease) 03/05/2019 Coumadin resistance 03/05/2019 Pulmonary nodule 08/30/2018 Overview: 08/25/2018 CT: Right, 2mm Recurrent left inguinal hernia 03/28/2018 Overview: Added automatically from request for surgery [id number] Biliary dyskinesia 03/27/2018 Left groin pain 03/27/2018 Screening for colorectal cancer 03/24/2018 Overview: Added automatically from request for surgery [id number] Microscopic hematuria 09/05/2017 Elevated AST (SGOT) 05/20/2017 Vitamin D deficiency 12/07/2016 Acquired hypothyroidism 12/07/2016 Mixed hyperlipidemia 12/07/2016 Diabetes type 2, controlled 12/07/2016 Chronic insomnia 12/07/2016 Essential hypertension 12/07/2016 COPD (chronic obstructive pulmonary disease) 12/07/2016 documented as of this encounter (statuses as of 06/04/2019) Immunizations Name Administration Dates Next Due Pneumococcal 13 Conjugate, PCV13 (Prevnar 13) 12/07/2016 Pneumococcal Polysaccharide, PPSV23 (PNEUMOVAX) 10/17/2012 documented as of this encounter Social History Tobacco Use Types Packs/Day Years Used Date Former Smoker Cigarettes 0.5 45 02/14/2017 - 04/03/2018 Smokeless Tobacco: Never Used Comments: Quit smoking 03/2019 Alcohol Use Drinks/Week oz/Week Comments Yes 0 Standard drinks or equivalent 0.0 Occasionally Sex Assigned at Date Recorded Not on file Job Start Date Occupation Industry Not on file Not on file Not on file Travel History Travel Start Travel End No recent travel history available. documented as of this encounter Last Filed Vital Signs Not on filedocumented in this encounter Plan of Treatment Health Maintenance Due Date Last Done Comments EYE EXAM 1957 DTaP,Tdap,and Td Vaccines (1 - 1966 Tdap) Zoster Recombinant Vaccine 1997 (SHINGRIX) (1 of 2) Medicare Wellness Visit 2012 Osteoporosis Screening 2012 MAMMOGRAM 03/30/2019 03/30/2018, 12/15/2016 INFLUENZA VACCINE (#1) 2019 LUNG CANCER SCREEN: Recommended 08/25/2019 08/25/2018 for age 55-80 with 30 + pack year history HgA1C 12/02/2019 06/01/2019, 03/21/2018, 05/16/2017, Additional history exists FOOT EXAM 2020 2019, 03/21/2018, 03/21/2018, Additional history exists CREATININE (SERUM) 06/01/2020 06/01/2019, 2019, 03/21/2018, Additional history exists LDL-C 06/01/2020 06/01/2019, 03/21/2018, 05/16/2017, Additional history exists URINE MICROALBUMIN 06/01/2020 06/01/2019, 03/21/2018, 05/16/2017 COLONOSCOPY 04/25/2028 04/25/2018, 10/17/2012 (Previously completed) PNEUMOCOCCAL VACCINES 65+ Completed 12/07/2016, 10/17/2012 HEPATITIS C (HCV) SCREEN Completed 03/21/2018, 03/21/2018 documented as of this encounter Goals Goal Patient Goal Associated Recent Patient-Stated? Author Type Problems Progress Quit using Tobacco Use Freda Brown, tobacco Wondiful A, (cigarettes, MD smokeless, etc) documented as of this encounter Results Not on filedocumented in this encounter Insurance Payer Benefit Plan / Subscriber ID Effective Phone Address Type Group Dates MEDICARE MEDICARE PART A xxxxxxxxxxx 2012-Pres [phone] [address] Medicare & B ent [id number] [place] [phone] BCBS OF BCBS [id number] 2012-Pres [phone] Medicare [place] [employer]ITION[employer] ent [id number] [place] [address] documented as of this encounter
--- OUTSIDE RECORDS SUMMARY | 2019-08-27 00:56 | XMS REPORT | Summary of Care ---
:1945 Author Organization [facility] Address [address] [place] [id number] Care Team Providers Name Role Phone Kate Brown MD Primary Care Provider Reason for Referral Radiology Services (Routine) Status Reason Specialty Diagnoses / Referred By Referred To Procedures Contact Contact New Request Diagnostic Diagnoses Breast cancer screening Kevin, Radiology Procedures BI SCREENING MAMMOGRAM BILATERAL Kate Hsu MD [address] [place] [address] [facility] [place] [address] (Routine) Status Reason Specialty Diagnoses / Referred By Referred To Procedures Contact Contact New Request Location Ophthalmology Diagnoses Controlled type 2 diabetes mellitus without complication, without long-term current use of insulin History of glaucoma Kevin Jonatan, Preference Procedures CONSULT/REFERRAL OPHTHALMOLOGY Olman Coats MD MD [address] [place] [address] [place] [phone] Phone: Fax: (Routine) Status Reason Specialty Diagnoses / Referred By Referred To Procedures Contact Contact Authorized Public Health & Diagnoses Referral of patient Kevin General Preventive Procedures CONSULT/REFERRAL MEDICARE ANNUAL WELLNESS VISIT Kate Hsu MD [address] [facility] [place] [address] Reason for Visit Reason Comments Follow-up DM2, HTN, HLD, and thyroid LAB WORK Encounter Details Date Type Department Care Team Description 06/01/2019 Office Visit [facility] Kate Brown Controlled type 2 diabetes mellitus without complication, without long-term current use of insulin (Primary Dx); Medicine - [place] Hsu MD Acquired hypothyroidism; [facility] [address] [facility] [address] [place] [address] DR Essential hypertension; [place], [place], [place] Mixed hyperlipidemia; [id number] Medication monitoring encounter; [phone] Encounter for long-term (current) use of medications; Referral of patient; Chronic anticoagulation; History of glaucoma; Breast cancer screening Allergies Active Allergy Reactions Severity Noted Date Comments Codeine Other - See comments 12/07/2016 Levofloxacin Palpitations 12/07/2016 Sulfamethoxazole Shortness of Breath 12/07/2016 documented as of this encounter (statuses as of 06/01/2019) Medications Medication Sig Dispensed Refills Start End Status Date Date CALCIUM PHOSPHATE Take by 0 Active TRIB/VIT D3 (CITRACAL + mouth. D3, CALCIUM PHOS, ORAL)Indications: Vitamin D deficiency albuterol 2.5 mg /3 mL Inhale 3 mL 100 Vial 1 10/05/20 Active (0.083 %) nebulizer every 4 (four) 17 solutionIndications: hours as Acute bacterial needed for bronchitis, COPD Wheezing or exacerbation Shortness of Breath. ipratropium 0.02 % Inhale 2.5 mL 100 Vial 1 10/05/20 Active nebulizer every 4 (four) 17 solutionIndications: hours as Acute bacterial needed for bronchitis, COPD Wheezing or exacerbation Shortness of Breath. psyllium seed, with Take by 0 Active dextrose, (FIBER ORAL) mouth. TIZANIDINE 4 mg TAKE 1/2 TO 1 270 tablet 2 11/02/19 Active tabletIndications: TABLET BY 19 Muscle spasm of back MOUTH EVERY 8 HOURS NEEDED FOR MUSCLE PAIN OR SPASM losartan-hydrochlorothia Take 1 tablet 90 tablet 1 12/04/19 Active zide 100-12.5 mg per by mouth 19 tabletIndications: daily. Essential hypertension lovastatin 10 mg Take 1 tablet 90 tablet 1 12/04/19 Active tabletIndications: by mouth 19 Hypercholesterolemia daily. metFORMIN 850 mg Take 1 tablet 90 tablet 1 12/04/19 Active tabletIndications: by mouth every 19 Controlled type 2 evening. diabetes mellitus without complication, without long-term current use of insulin fluticasone-salmeterol Inhale 1 Puff 1 Each 5 12/04/19 Active (ADVAIR DISKUS) 250-50 every 12 19 mcg/dose inhalation (twelve) diskIndications: Chronic hours. obstructive pulmonary disease, unspecified COPD type albuterol (PROAIR HFA) Inhale 2 Puffs 8.5 g 1 12/04/19 Active 90 mcg/actuation every 6 (six) 19 inhalerIndications: hours as Chronic obstructive needed for pulmonary disease, Wheezing or unspecified COPD type Shortness of Breath. CARTIA XT 180 mg 24 hr TAKE 1 CAPSULE 90 capsule 3 03/21/20 Active capsuleIndications: BY MOUTH DAILY 19 Essential hypertension SERTRALINE 100 mg TAKE 1 TABLET 90 tablet 3 03/21/20 Active tabletIndications: BY MOUTH EVERY 19 Chronic insomnia, MORNING History of depression varenicline (CHANTIX Take 1 tablet 56 tablet 4 04/02/20 Active CONTINUING MONTH BOX) 1 by mouth 2 19 mg tabletIndications: (two) times Tobacco dependence daily. LEVOTHYROXINE 25 mcg TAKE 1 TABLET 90 tablet 1 04/09/20 Active tabletIndications: BY MOUTH EVERY 19 Acquired hypothyroidism MORNING apixaban 2.5 mg Take 1 tablet 60 tablet 5 06/01/20 Active tabletIndications: by mouth 2 19 Chronic anticoagulation (two) times daily. Miscellaneous Medical THERAPY SPA 1 Each 0 05/30/20 Discontinued Supply MiscIndications: 7.5 18 019 Low back pain radiating to right lower extremity, History of back surgery, Back muscle spasm methylPREDNISolone Follow package 21 Each 0 04/10/20 Discontinued (MEDROL, PASQUALE,) 4 mg directions 19 019 tabletsIndications: Persistent cough, Subacute bronchitis, COPD exacerbation apixaban 2.5 mg Take 1 tablet 60 tablet 5 04/26/20 Discontinued tabletIndications: by mouth 2 019 Chronic anticoagulation (two) times daily. 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 Pulmonary nodule 08/30/2018 Overview: 08/25/2018 CT: Right, 2mm Recurrent left inguinal hernia 03/28/2018 Overview: Added automatically from request for surgery [id number] Biliary dyskinesia 03/27/2018 Left groin pain 03/27/2018 Screening for colorectal cancer 03/24/2018 Overview: Added automatically from request for surgery [id number] Microscopic hematuria 09/05/2017 Elevated AST (SGOT) 05/20/2017 Vitamin D deficiency 12/07/2016 Acquired hypothyroidism 12/07/2016 Mixed hyperlipidemia 12/07/2016 Diabetes type 2, controlled 12/07/2016 Chronic insomnia 12/07/2016 Essential hypertension 12/07/2016 COPD (chronic obstructive pulmonary disease) 12/07/2016 documented as of this encounter (statuses as of 06/01/2019) Immunizations Name Administration Dates Next Due Pneumococcal [...] of this encounter Last Filed Vital Signs Vital Sign Reading Time Taken Comments Blood Pressure 134/72 06/01/2019 8:18 AM CDT Pulse 68 06/01/2019 8:18 AM CDT Temperature 36.7 C (98 F) 06/01/2019 8:18 AM CDT Respiratory Rate - - Oxygen Saturation - - Inhaled Oxygen Concentration - - Weight 71.2 kg (157 lb) 06/01/2019 8:18 AM CDT Height 160 cm (5' 3") 06/01/2019 8:18 AM CDT Body Mass Index 27.81 06/01/2019 8:18 AM CDT documented in this encounter Patient Instructions Patient InstructionsCoKate turk MD - 06/01/2019 8:15 AM CDT Prevention Guidelines, Women Ages 65 and Older Screening tests and vaccines are an important part of managing your health. A screening test is doneto find possible disorders or diseases in people who don' t have any symptoms. The goal is to find a disease early so lifestyle changes can be made and you can be watched more closely to reduce the riskof disease, or to detect it early enough to treat it most effectively. Screening tests are not considered diagnostic, but are used to determine if more testing is needed. Health counseling is essential, too. Below are guidelines for these, for women ages 65 and older. Talk with your healthcare provider to make sure youre up to date on what you need. Screening Who needs it How often Type 2 diabetes or prediabetes All women ages 40 to 75 who are overweight or obese At least every 3 years Type 2 diabetes All women with prediabetes Every year Alcohol misuse All women in this age group At routine exams Blood pressure All women in this age group Yearly checkup if your blood pressure is normal* Normal blood pressure is less than 120/80 mm Hg* If your blood pressure reading is higher than normal, follow the advice of your healthcare provider Breast cancer All women of average risk There are no guidelines for breast cancer screening for 75 years and older. Mammograms should be done every 1 or 2 years until age 75. At that point a woman should talk to her doctor about whether tocontinue screening. Talk to your doctor regarding your recommended frequency depending on your risk factors. Cervical cancer Only women who had abnormal screening results before age 65 Talk with your healthcare provider Chlamydia Women at increased risk for infection At routine exams Colorectal cancer All women over the age of 50 This screening is advised against for women over 75 or if there is a life expectancy of less than 10years. Multiple tests are available and are used at different times. Possible tests include: flexible sigmoidoscopy, colonoscopy, double-contrast barium enema, yearly fecal occult blood test, fecal immunochemical test, or stool DNA test as often as your healthcare provider advises. Talk with your healthcare provider about which tests are best for you. Depression All women in this age group At routine exams Gonorrhea Sexually active women at increased risk for infection At routine exams Hepatitis C Anyone at increased risk; 1 time for those born between 1945 and 1964 At routine exams High cholesterol or triglycerides All women in this age group who are at risk for coronary artery disease At least every 5 years HIV Women at increased risk for infectiontalk with your healthcare provider At routine exams Lung cancer Adults ages 55 to 74 who have smoked with a 92-mijl-i-year history and have smoked within the past 15 years Annual low dose CT scan Obesity All women in this age group At routine exams Osteoporosis All women in this age group Bone density test at age 65, then follow-up as advised by your healthcare provider Syphilis Women at increased risk for infectiontalk with your healthcare provider At routine exams Thyroid-Stimulating Hormone (TSH) All women in this age group with symptoms of thyroid dysfunction. There is not enough evidence to support TSH screening in women without symptoms. ACOG recommendation is every 5 years; [employer] [employer] concludes there is not enough evidence to support routine screening in adults without symptoms. Tuberculosis Women at increased risk for infectiontalk with your healthcare provider Ask your healthcare provider Vision All women in this age group Every 1 to 2 years; if you have a chronic health condition, ask your healthcare provider if you need exams more often Vaccine Who needs it How often Chickenpox (varicella) All women in this age group who have no record of this infection or vaccine 2doses; second dose should be given at least 4 weeks after the first dose Hepatitis A Women at increased risk for infectiontalk with your healthcare provider 2 doses given6 months apart Hepatitis B Women at increased risk for infectiontalk with your healthcare provider 3 doses over 6 months; second dose should be given 1 month after the first dose; the third dose should be given atleast 2 months after the second dose and at least 4 months after the first dose Haemophilus influenzaType B (HIB) Women at increased risk for infection talk with your healthcare provider 1 to 3 doses Influenza (flu) All women in this age group Once a year Pneumococcalconjugate vaccine (PCV13)and pneumococcal polysaccharide vaccine (PPSV23) All womenin this age group 1 dose of each vaccine Tetanus/diphtheria/pertussis (Td/Tdap) booster All women in this age group Td every 10 years, or a one-time dose of Tdap instead of a Td booster after age 18 , then Td every 10 years Zoster All women in this age group 1 dose Counseling Who needs it How often Diet and exercise Women who are overweight or obese When diagnosed, and then at routine exams Fall prevention (exercise and vitamin D supplements) All women in this age group At routine exams Sexually transmitted infection prevention Women at increased risk for infection talk with your healthcare provider At routine exams Use of daily aspirin Talk to your healthcare provider about whether or not to start taking low-dose aspirin for the prevention of cardiovascular disease (CVD ) and colorectal cancer in adults ages 60 to69 who have at least a 10% risk of getting CVD within the next 10 years. People who are not at increased risk for bleeding, have a life expectancy of at least 10 years, and are willing to take low-dose aspirin daily for at least 10 years are more likely to benefit. When theadvantages of taking low-dose aspirin outweigh the risks, people may choose to start taking a low-dose aspirin. There is not enough data to support the use of aspirin in people over the age of 70. When your risk is known Use of tobacco and the health effects it can cause All women in this age group Every exam Date Last Reviewed: 08/17/201719990432-9955 [employer]. [address] [place] [address]. All rights reserved. This information is not intended as a substitute for professional medical care. Always follow your healthcare professional's instructions. documented in this encounter Progress Notes Dominique Clay - 06/01/2019 8:15 AM CDTVenipuncture Collection performed by clean technique. Total of 1 attempts were made. Slight pressureand a bandage/ dressing were applied to the site(s). The patient experienced no complications. Specimens were sent processed to [facility] laboratories. Kate batres MD - 06/01/2019 8:15 AM CDT Cc: Chief Complaint Patient presents with Follow-up DM2, HTN, HLD, and thyroid LAB WORK HPI Chacha Valerio is a 74 year old female who presents today for DM2, HTN, HLD, and hypothyroidism follow up. DM2 follow-up: Medication compliance: Good. Dietary compliance: Good. Exercise frequency: The patient is active but doesn' t formally exercise. Last Two A1C Results ([facility]/LC, POCT, [facility]) There are no current results on file for these tests and/or test for 1 year. Glucose readings: Doesn't self-monitor. Hypoglycemic episodes: None. Associated symptoms: Visual changes. Denies chest pain, paresthesia of extremities, foot problems, polyuria, or polydipsia. Last Ophthalmology visit: Over a year ago, needs to schedule. HTN, HLD follow-up: Medication compliance: Good. Denies adverse medication side effects. Dietary compliance: See above. Exercise frequency: See above. Blood pressure readings: She states when she was in [place] her bp was up to the 150s systolic. Hasn't self-monitored her bp since then. Associated symptoms: Visual changes. Denies cp, SOB, palpitations, edema, orthopnea, PND, syncope, claudication, dizziness, headaches, or focal weakness. Cardiovascular screening (ex. EKG, stress test) in the past 3 years?: Yes, 2017. Hypothyroidism follow-up: Compliant with levothyroxine, the patient takes the generic form. Symptoms?: None. Denies unintentional change in weight, energy level, hair/skin/nails, bowel habits, appetite, or temperature tolerance. Allergies Chacha is allergic to codeine; levaquin [levofloxacin]; and sulfamethoxazole. Medications Outpatient Medications Prior to Visit Medication Sig Dispense Refill LEVOTHYROXINE 25 mcg tablet TAKE 1 TABLET BY MOUTH EVERY MORNING 90 tablet 1 varenicline (CHANTIX CONTINUING MONTH BOX) 1 mg tablet Take 1 tablet by mouth 2 (two) times daily. 56 tablet 4 CARTIA XT 180 mg 24 hr capsule TAKE 1 CAPSULE BY MOUTH DAILY 90 capsule 3 SERTRALINE 100 mg tablet TAKE 1 TABLET BY MOUTH EVERY MORNING 90 tablet 3 albuterol (PROAIR HFA) 90 mcg/actuation inhaler Inhale 2 Puffs every 6 (six ) hours as needed forWheezing or Shortness of Breath. 8.5 g 1 fluticasone-salmeterol (ADVAIR DISKUS) 250-50 mcg/dose inhalation disk Inhale 1 Puff every 12 (twelve) hours. 1 Each 5 losartan-hydrochlorothiazide 100-12.5 mg per tablet Take 1 tablet by mouth daily. 90 tablet 1 lovastatin 10 mg tablet Take 1 tablet by mouth daily. 90 tablet 1 metFORMIN 850 mg tablet Take 1 tablet by mouth every evening. 90 tablet 1 TIZANIDINE 4 mg tablet TAKE 1/2 TO 1 TABLET BY MOUTH EVERY 8 HOURS NEEDED FOR MUSCLE PAIN OR SPASM 270 tablet 2 psyllium seed, with dextrose, (FIBER ORAL) Take by mouth. albuterol 2.5 mg /3 mL (0.083 %) nebulizer solution Inhale 3 mL every 4 ( four) hours as needed for Wheezing or Shortness of Breath. 100 Vial 1 ipratropium 0.02 % nebulizer solution Inhale 2.5 mL every 4 (four) hours as needed for Wheezing or Shortness of Breath. 100 Vial 1 CALCIUM PHOSPHATE TRIB/VIT D3 (CITRACAL + D3, CALCIUM PHOS, ORAL) Take by mouth. apixaban 2.5 mg tablet Take 1 tablet by mouth 2 (two) times daily. 60 tablet 5 methylPREDNISolone (MEDROL, PASQUALE,) 4 mg tablets Follow package directions 21 Each 0 Miscellaneous Medical Supply [facility] THERAPY SPA HL 7.5 1 Each 0 No facility-administered medications prior to visit. 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/05/2019 Diabetes type 2, controlled 12/07/2016 DVT (deep venous thrombosis) Essential hypertension 12/07/2016 History of respiratory failure Microscopic hematuria 09/05/2017 Mixed hyperlipidemia 12/07/2016 PAD (peripheral artery disease) 03/05/2019 Pulmonary nodule 08/30/2018 08/25/2018 CT: Right, 2mm Vitamin D deficiency 12/07/2016 Past Surgical History: Procedure Laterality Date ANTERIOR CERVICAL FUSION AUGMENTATION MAMMOPLASTY BREAST IMPLANT REMOVAL BUNIONECTOMY COLONOSCOPY 2014 COLONOSCOPY N/A 04/25/2018 Surgeon: Venkata Brower MD; Location: [facility] OR Location HYSTERECTOMY LAPAROSCOPIC CHOLECYSTECTOMY 05/04/2018 LAPAROSCOPIC CHOLECYSTECTOMY N/A 05/04/2018 Surgeon: Venkata Brower MD; Location: [facility] OR Location LAPAROSCOPIC INGUINAL HERNIORRHAPHY Left 05/04/2018 Surgeon: Venkata Brower MD; Location: [facility] OR Location POSTERIOR LUMBAR INTERBODY SPINAL FUSION RADICAL HYSTERECTOMY REMOVAL OF OVARY/TUBE(S) Social History Socioeconomic History Marital status: Spouse name: Not on file Number of children: Not on file Years of education: Not on file Highest education level: Not on file Occupational History Not on file Social Needs Financial resource strain: Not on file Food insecurity: Worry: Not on file Inability: Not on file Transportation needs: Medical: Not on file Non-medical: Not on file Tobacco Use Smoking status: Former Smoker Packs/day: 0.50 Years: 45.00 Pack years: 22.50 Types: Cigarettes Start date: 02/14/2017 Last attempt to quit: 04/03/2018 Years since quittin.1 Smokeless tobacco: Never Used Tobacco comment: Quit smoking 03/2019 Substance and Sexual Activity Alcohol use: Yes Alcohol/week: 0.0 oz Comment: Occasionally Drug use: No Sexual activity: Not on file Lifestyle Physical activity: Days per week: Not on file Minutes per session: Not on file Stress: Not on file Relationships Social connections: Talks on phone: Not on file Gets together: Not on file Attends rastafari service: Not on file Active member of club or organization: Not on file Attends meetings of clubs or organizations: Not on file Relationship status: Not on file Intimate partner violence: Fear of current or ex partner: Not on file Emotionally abused: Not on file Physically abused: Not on file Forced sexual activity: Not on file Other Topics Concern Not on file Social History Narrative First started smoking 2ppd and gradually lowerd to 1 ppd, has quit smoking several times in between, currently not smoking Family History Problem Relation Age of Onset Alzheimers dementia Mother Diabetes Mother Hypertension Mother Lung Cancer Father Hypertension Father DVT (deep venous thrombosis) Father Cancer Brother tongue Review of Systems Constitutional: Negative. HENT: Negative. Eyes: Negative. Respiratory: Positive for cough and wheezing. Cardiovascular: Negative. Gastrointestinal: Negative. Genitourinary: Negative. Musculoskeletal: Negative. Skin: Negative. Neurological: Negative. Psychiatric/Behavioral: Negative. Endocrine: Endocrine negative Vital Signs BP 134/72 (BP Location: Left arm, Patient Position: Sitting, BP CUFF SIZE: Adult Medium) | Pulse 68 | Temp 36.7 C (98 F) (Tympanic) | Ht 5' 3" (1.6 m ) | Wt 157 lb (71.2 kg) | BMI 27.81 kg/m Physical Exam Constitutional: She is oriented to person, place, and time. She appears well- developed and well-nourished. HENT: Mouth/Throat: Mucous membranes are normal. Eyes: Pupils are equal, round, and reactive to light. Conjunctivae and EOM are normal. No scleral icterus. Neck: Neck supple. No JVD present. No thyromegaly present. Cardiovascular: Normal rate, regular rhythm, normal heart sounds and intact distal pulses. Exam reveals no gallop and no friction rub. No murmur heard. Pulmonary/Chest: Effort normal. She has wheezes (b/l, end-expiratory). Abdominal: Soft. Bowel sounds are normal. She exhibits no distension and no mass. There is no tenderness. Musculoskeletal: She exhibits no edema. Diabetic foot exam: Sensory exam of the foot is abnormal. Monofilament exam with sensation Right: 5/5, Left: 5/5. Lesions and ulcers absent. Peripheral pulses present 1+. Lymphadenopathy: She has no cervical adenopathy. Neurological: She is alert and oriented to person, place, and time. She has normal reflexes. Skin: Skin is warm and dry. No rash noted. No pallor. Psychiatric: She has a normal mood and affect. Nursing note and vitals reviewed. Assessment/Plan Diagnoses and all orders for this visit: Controlled type 2 diabetes mellitus without complication, without long-term current use of insulin Continue current anti-diabetic medication(s). Reviewed the principles of following a diabetic diet including the concept of glycemic index. Exercise regularly. Self monitor glucose once daily beforebreakfast and bring record to each visit. See the Neuropsychology Medical Consultant at least annually for diabetic eye exam. See the [place] Operator for routine foot care and diabetic shoes if appropriate. - CONSULT/REFERRAL OPHTHALMOLOGY - COMP. METABOLIC PANEL (82310) - GLYCOSYLATED HEMOGLOBIN (A1C) - LIPID PANEL (87516)(TOTAL CHOLESTEROL, TRIGLYCERIDES, HDL) - THYROID STIMULATING HORMONE - MICROALBUMIN URINE - CBC WITH DIFFERENTIAL Acquired hypothyroidism The patient seems clinically euthyroid. Continue current dose of levothyroxine for now. I will adjust the dose if needed based on the patient's TFTs. - THYROID STIMULATING HORMONE - FREE T4 Essential hypertension Bp is at goal for age. Continue current medication(s). Low sodium diet/DASH diet. Exercise regularly. The patient was instructed to self monitor her blood pressure once daily varying the times whenit is checked and to bring the record of readings to each office visit. The patient should follow-up sooner if the blood pressure is trending >/=150/90. - COMP. METABOLIC PANEL (11556) - THYROID STIMULATING HORMONE - MICROALBUMIN URINE - CBC WITH DIFFERENTIAL Mixed hyperlipidemia Continue current lipid-lowering pharmacotherapy. Low fat, low cholesterol diet was recommended/reviewed. Exercise regularly. - COMP. METABOLIC PANEL (28815); Standing - LIPID PANEL (41035)(TOTAL CHOLESTEROL, TRIGLYCERIDES, HDL); Standing - THYROID STIMULATING HORMONE; Standing - COMP. METABOLIC PANEL (22699) - LIPID PANEL (47466)(TOTAL CHOLESTEROL, TRIGLYCERIDES, HDL) - THYROID STIMULATING HORMONE Medication monitoring encounter, Encounter for long-term (current) use of medications - COMP. METABOLIC PANEL (59396) - GLYCOSYLATED HEMOGLOBIN (A1C) - LIPID PANEL (48234)(TOTAL CHOLESTEROL, TRIGLYCERIDES, HDL) - THYROID STIMULATING HORMONE - MICROALBUMIN URINE - CBC WITH DIFFERENTIAL Referral of patient - CONSULT/REFERRAL MEDICARE ANNUAL WELLNESS VISIT Chronic anticoagulation, History of DVT Stable w/o signs of blood loss. Continue current pharmacotherapy. - apixaban 2.5 mg tablet; Take 1 tablet by mouth 2 (two) times daily. - CBC WITH DIFFERENTIAL History of glaucoma Recommended evaluation and management by an Ophthalmology specialist. Referral intiated. - CONSULT/REFERRAL OPHTHALMOLOGY Breast cancer screening - BI SCREENING MAMMOGRAM BILATERAL; Future Plan of care, desired health behaviors, goals, Ddx, and any prescribed medications were discussed with the patient. This visit did not involve counseling and coordination that comprised more than 50% of the visit time. Education resources and self-management tools were provided and reviewed with the AVS. Patient/guardian/family verbalized understanding and agrees to the plan of care. Barriers tocare: None. Ability to manage care: Good. Advanced care planning (living will) information was not given/offered to the patient to review for discussion at a future visit. If applicable, the [facility] database was accessed to review any controlled substance prescription claims data. If the patient is taking prescribed medications, the [employer] prescription claims data in [place] was reviewed to assess patient compliance with the medication treatment plan. Follow-up: Return in about 6 months (around 12/02/2019) for diabetic check. Follow-up sooner if anyproblems or concerns. Scribe Attestation I, Katherine Broussard , am scribing for, and in the presence of, Kate Brown MD who performed the services described here-in. Katherine Broussard, June 01, 2019, 8:37 AM Physician Attestation Kate Parr MD, personally performed the services described in this documentation , as scribed by, Katherine Broussard in my presence and it is both accurate and complete. Kate Brown MD June 01, 2019, 8:37 AM documented in this encounter Plan of Treatment Name Type Priority Associated Diagnoses Date/Time LIPID PANEL (45108)(TOTAL LAB Routine Controlled type 2 06/01/2019 8:53 AM CHOLESTEROL, diabetes mellitus CDT TRIGLYCERIDES, HDL) without complication, without long-term current use of insulin Mixed hyperlipidemia Medication monitoring encounter Encounter for long-term (current) use of medications MICROALBUMIN URINE LAB Routine Controlled type 2 06/01/2019 9:08 AM diabetes mellitus CDT without complication, without long-term current use of insulin Essential hypertension Medication monitoring encounter Encounter for long-term (current) use of medications Name Type Priority Associated Diagnoses Order Schedule LIPID PANEL LAB Routine Controlled type 2 1 Occurrences starting (35257)(TOTAL diabetes mellitus 06/01/2019 until CHOLESTEROL, without complication, 07/31/2019, 1 TRIGLYCERIDES, HDL) without long-term completed current use of insulin Mixed hyperlipidemia Medication monitoring encounter Encounter for long-term (current) use of medications MICROALBUMIN URINE LAB Routine Controlled type 2 1 Occurrences starting diabetes mellitus 06/01/2019 until without complication, 07/31/2019 without long-term current use of insulin Essential hypertension Medication monitoring encounter Encounter for long-term (current) use of medications BI SCREENING MAMMOGRAM IMAGING Routine Breast cancer Expected: 06/01/2019, BILATERAL screening Expires: 07/31/2020 Health Maintenance Due Date Last Done Comments EYE EXAM 1957 DTaP,Tdap,and Td Vaccines (1 - 1966 Tdap) Zoster Recombinant Vaccine 1997 (SHINGRIX) (1 of 2) Medicare Wellness Visit 2012 Osteoporosis Screening 2012 HgA1C 09/20/2018 03/21/2018, 05/16/2017, 12/07/2016 LDL-C 03/21/2019 03/21/2018, 05/16/2017, 12/07/2016 URINE MICROALBUMIN 03/21/2019 03/21/2018, 05/16/2017 MAMMOGRAM 03/30/2019 03/30/2018, 12/15/2016 INFLUENZA VACCINE (#1) 2019 LUNG CANCER SCREEN: Recommended 08/25/2019 08/25/2018 for age 55-80 with 30 + pack year history CREATININE (SERUM) 2020 2019, 03/21/2018, 05/16/2017, Additional history exists FOOT EXAM 2020 2019, 03/21/2018, 03/21/2018, Additional history exists COLONOSCOPY 04/25/2028 04/25/2018, 10/17/2012 (Previously completed) PNEUMOCOCCAL VACCINES 65+ Completed 12/07/2016, 10/17/2012 HEPATITIS C (HCV) SCREEN Completed 03/21/2018, 03/21/2018 documented as of this encounter Goals Goal Patient Goal Associated Recent Patient-Stated? Author Type Problems Progress Quit using Tobacco Use No Kevin, tobacco Wondiful A, (cigarettes, MD smokeless, etc) documented as of this encounter Procedures Procedure Name Priority Date/Time Associated Diagnosis Comments CBC WITH Routine 06/01/2019 8:53 Controlled type 2 Results for this DIFFERENTIAL AM CDT diabetes mellitus procedure are in without complication, the results without long-term section. current use of insulin Essential hypertension Medication monitoring encounter Encounter for long-term (current) use of medications Chronic anticoagulation GLYCOSYLATED Routine 06/01/2019 8:53 Controlled type 2 Results for this HEMOGLOBIN (A1C) AM CDT diabetes mellitus procedure are in without complication, the results without long-term section. current use of insulin Medication monitoring encounter Encounter for long-term (current) use of medications CBC WITH DIFF Routine 06/01/2019 8:53 Controlled type 2 Results for this AM CDT diabetes mellitus procedure are in without complication, the results without long-term section. current use of insulin Essential hypertension Medication monitoring encounter Encounter for long-term (current) use of medications Chronic anticoagulation COMP. METABOLIC Routine 06/01/2019 8:53 Controlled type 2 Results for this PANEL (51877) AM CDT diabetes mellitus procedure are in without complication, the results without long-term section. current use of insulin Essential hypertension Mixed hyperlipidemia Medication monitoring encounter Encounter for long-term (current) use of medications THYROID STIMULATING Routine 06/01/2019 8:53 Controlled type 2 Results for this HORMONE AM CDT diabetes mellitus procedure are in without complication, the results without long-term section. current use of insulin Acquired hypothyroidism Essential hypertension Mixed hyperlipidemia Medication monitoring encounter Encounter for long-term (current) use of medications FREE T4 Routine 06/01/2019 8:53 Acquired hypothyroidism Results for this AM CDT procedure are in the results section. documented in this encounter Results CBC WITH DIFFERENTIAL (06/01/2019 8:53 AM CDT) WBC 6.51 4.30 - 11.10 [facility] 10*3/L [facility] RBC 4.45 3.93 - 5.25 [facility] 10*6/L [facility] HGB 13.8 11.6 - 15.0 [facility] g/dL [facility] HCT 42.5 35.7 - 45.2 % [facility] MCV 95.5 80.6 - 95.5 fL [facility] MCH 31.0 25.9 - 32.8 pg [facility] MCHC 32.5 31.6 - 35.1 [facility] g/dL [facility] RDW-SD 48.2 39.0 - 49.9 fL [facility] RDW-CV 13.8 12.0 - 15.5 % [facility] PLT 288 166 - 358 [facility] 10*3/L [facility] MPV 9.4 (L) 9.5 - 12.9 fL [facility] NRBC/100 WBC 0.0 0.0 - 10.0 /100 [facility] WBCs [facility] NRBC x10^3 <0.01 10*3/L [facility] GRAN MAT (NEUT) % 45.3 % [facility] IMM GRAN % 0.30 % [facility] LYMPH % 36.9 % [facility] MONO % 8.1 % [facility] EOS % 8.0 % [facility] BASO % 1.4 % [facility] GRAN MAT x10^3(ANC) 2.95 1.88 - 7.09 [facility] 10*3/uL [facility]ITAL [facility] IMM GRAN x10^3 <0.03 0.00 - 0.06 [facility] 10*3/uL [facility] LYMPH x10^3 2.40 1.32 - 3.29 [facility] 10*3/uL [facility] MONO x10^3 0.53 0.33 - 0.92 [facility] 10*3/uL [facility] EOS x10^3 0.52 (H) 0.03 - 0.39 [facility] 10*3/uL [facility] BASO x10^3 0.09 (H) 0.01 - 0.07 [facility] 10*3/uL [facility] Specimen Blood - ARM, LEFT Performing Organization Address [facility] Phone Number [facility] CLIA: [id number], [address] [place] [address] FREE T4 (06/01/2019 8:53 AM CDT) FREE T4 0.93 0.78 - 2.20 ng/dL [facility] Specimen Blood - ARM, LEFT Performing Organization Address [facility] Phone Number [facility] CLIA: [id number], [address] [place] [address] THYROID STIMULATING HORMONE (06/01/2019 8:53 AM CDT) TSH 6.05 (H) 0.45 - 4.70 mIU/L [facility] Specimen Blood - ARM, LEFT Performing Organization Address [facility] Phone Number [facility] CLIA: [id number], [address] [place] [address] GLYCOSYLATED HEMOGLOBIN (A1C) (06/01/2019 8:53 AM CDT) HGB A1C 5.5 4.0 - 6.0 % NGSP [facility] Specimen Blood - ARM, LEFT Narrative Performed At %A1C (NGSP) Interpretation (ADA) [facility] 4.8-5.6 Normal or (Non-Diabetic Range) 5.7-6.4 Increased Risk (Pre-Diabetic) >6.5Diabetes Indicated Performing Organization Address [facility] Phone Number [facility] CLIA: [id number], [address] [place] [address] COMP. METABOLIC PANEL (02574) (06/01/2019 8:53 AM CDT) NA 144 135 - 145 [facility] mmol/L [facility] K 5.1 (H) 3.5 - 5.0 [facility] mmol/L [facility] CL 105 98 - 108 mmol/L [facility] CO2 TOTAL 30 23 - 31 mmol/L [facility] AGAP 9 2 - 16 [facility] BUN 19 7 - 23 mg/dL [facility] GLUCOSE 100 70 - 110 mg/dL [facility] CREATININE 0.83 0.50 - 1.04 [facility] mg/dL [facility] TOTAL BILI 0.9 0.1 - 1.1 mg/dL [facility] CALCIUM 10.0 8.6 - 10.6 [facility] mg/dL [facility] T PROTEIN 6.8 6.3 - 8.2 g/dL [facility] ALBUMIN 4.3 3.5 - 5.0 g/dL [facility] ALK PHOS 58 34 - 122 U/L [facility] ALT(SGPT) 22 9 - 51 U/L [facility] AST(SGOT) 20 13 - 40 U/L [facility] eGFR Calculation 67.6 mL/min/1.73m2 [facility] Filipino[facility] eGFR Calculation 81.9 mL/min/1.73m2 [facility] () [facility] Specimen Blood - ARM, LEFT Narrative Performed At Association of Glomerular Filtration Rate (GFR) [facility] and Staging of Kidney Disease* + + +- + | GFR (mL/min/1.73 m2)| With Kidney Damage|Without Kidney Damage + + +- + |>90| Stage one| Normal + + +- + |60-89|S tage two| Decreased GFR + + +- + |30-59|S tage three| Stage three + + +- + |15-29|S tage four | Stage four + + +- + |<15 (or dialysis)|Stage five | Stage five + + +- + *Each stage assumes the associated GFR level has been in effect for at least three months.Stages 1 to 5, with or without kidney disease, indicate chronic kidney disease. Notes: Determination of stages one and two (with eGFR >59mL/min/1.73 m2) requires estimation of kidney damage for at least three months as defined by structural or functional abnormalities of the kidney, manifested by either: Pathological abnormalities or Markers of kidney damage (including abnormalities in the composition of the blood or urine or abnormalities in imaging tests). Performing Organization Address City/State/Zipcode Phone Number [facility] CLIA: [id number], [address] [place] [address] [facility] documented in this encounter Visit Diagnoses Diagnosis Controlled type 2 diabetes mellitus without complication, without long-term current use of insulin - Primary Acquired hypothyroidism Unspecified hypothyroidism Essential hypertension Unspecified essential hypertension Mixed hyperlipidemia Medication monitoring encounter Encounter for therapeutic drug monitoring Encounter for long-term (current) use of medications Encounter for long-term (current) use of other medications Referral of patient Referral of patient without examination or treatment Chronic anticoagulation Encounter for long-term (current) use of anticoagulants History of glaucoma Personal history of other disorders of nervous system and sense organs Breast cancer screening Breast screening, unspecified documented in this encounter Insurance Payer Benefit Plan / Subscriber ID Effective Phone Address Type Group Dates MEDICARE MEDICARE PART A xxxxxxxxxxx 2012-Pres [phone] [address] Medicare & B ent [phone] [id number] [place] [phone] [employer] [id number] 2012-Pres [phone] Medicare [place] [employer]ITION[employer] ent [id number] [place] [address] documented as of this encounter
--- OUTSIDE RECORDS SUMMARY | 2019-08-27 00:56 | XMS REPORT | Summary of Care ---
:1945 Author Organization [facility] Address [address] [place] [address] Care Team Providers Name Role Phone Kate Brown MD Primary Care Provider Reason for Referral Radiology Services (Routine) Status Reason Specialty Diagnoses / Referred By Referred To Procedures Contact Contact New Request Diagnostic Diagnoses Breast cancer screening Kevin, Radiology Procedures BI SCREENING MAMMOGRAM BILATERAL Kate Hsu MD [address] [place] [address] [facility] [place] [address] (Routine) Status Reason Specialty Diagnoses / Referred By Referred To Procedures Contact Contact New Request Location Ophthalmology Diagnoses Controlled type 2 diabetes mellitus without complication, without long-term current use of insulin History of glaucoma Kevin Jonatan, Preference Procedures CONSULT/REFERRAL OPHTHALMOLOGY Olman Coats MD MD [address] [place] [address] [place] [phone] Phone: Fax: (Routine) Status Reason Specialty Diagnoses / Referred By Referred To Procedures Contact Contact Authorized Public Health & Diagnoses Referral of patient Kevin General Preventive Procedures CONSULT/REFERRAL MEDICARE ANNUAL WELLNESS VISIT Kate Hsu MD [address] [facility] [place] [place] [address] Reason for Visit Reason Comments Follow-up DM2, HTN, HLD, and thyroid LAB WORK Encounter Details Date Type Department Care Team Description 06/01/2019 Office Visit [facility] Family Kate Brown Controlled type 2 diabetes mellitus without complication, without long-term current use of insulin (Primary Dx); Medicine - Harinder Hsu MD Acquired hypothyroidism; [facility] [address] [place] [address] DR Essential hypertension; [place], [place], [place] Mixed hyperlipidemia; [phone] Medication monitoring encounter; [phone] Encounter for long-term (current) use of medications; [...] Overview: Added automatically from request for surgery [id number] Biliary dyskinesia 03/27/2018 Left groin pain 03/27/2018 Screening for colorectal cancer 03/24/2018 Overview: Added automatically from request for surgery [id number] Microscopic hematuria 09/05/2017 Elevated AST (SGOT) 05/20/2017 [...] to 76 who have smoked with a 66-zqev-i-year history and have smoked within the past [...] symptoms. ACOG recommendation is every 5 years; [place] [employer] concludes there is [...] age group Every exam Date Last Reviewed: 08/17/201719990011-6279 [employer]. [address] [place] [address]. All rights reserved. This information is not [...] no complications. Specimens were sent processed to [facility] laboratories. Kate batres MD - 06/01/2019 [...] readings: She states when she was in [place] her bp was up to the 150s [...] directions 21 Each 0 Miscellaneous Medical Supply [facility] THERAPY SPA HL 7.5 1 Each 0 [...] N/A 04/25/2018 Surgeon: Venkata Brower MD; Location: [facility] OR Location HYSTERECTOMY LAPAROSCOPIC CHOLECYSTECTOMY 05/04/2018 LAPAROSCOPIC CHOLECYSTECTOMY N/A 05/04/2018 Surgeon: Venkata Brower MD; Location: [facility] OR Location LAPAROSCOPIC INGUINAL HERNIORRHAPHY Left 05/04/2018 Surgeon: Venkata Brower MD; Location: [facility] OR Location POSTERIOR LUMBAR INTERBODY SPINAL FUSION [...] file Gets together: Not on file Attends confucianist service: Not on file Active member of [...] bring record to each visit. See the Vacuum Evaporation Operator at least annually for diabetic eye exam. See the Outside Dealer Sales Representative for routine foot care and diabetic shoes if appropriate. - CONSULT/REFERRAL OPHTHALMOLOGY - COMP. METABOLIC PANEL (43633) - GLYCOSYLATED HEMOGLOBIN (A1C) - LIPID PANEL (64873)(TOTAL CHOLESTEROL, TRIGLYCERIDES, HDL) - THYROID STIMULATING HORMONE [...] is trending >/=150/90. - COMP. METABOLIC PANEL (21206) - THYROID STIMULATING HORMONE - MICROALBUMIN URINE - CBC WITH DIFFERENTIAL Mixed hyperlipidemia Continue current lipid-lowering pharmacotherapy. Low fat, low cholesterol diet was recommended/reviewed. Exercise regularly. - COMP. METABOLIC PANEL (82497); Standing - LIPID PANEL (44321)(TOTAL CHOLESTEROL, TRIGLYCERIDES, HDL); Standing - THYROID STIMULATING HORMONE; Standing - COMP. METABOLIC PANEL (82285) - LIPID PANEL (25223)(TOTAL CHOLESTEROL, TRIGLYCERIDES, HDL) - THYROID STIMULATING HORMONE Medication monitoring encounter, Encounter for long-term (current) use of medications - COMP. METABOLIC PANEL (93708) - GLYCOSYLATED HEMOGLOBIN (A1C) - LIPID PANEL (37636)(TOTAL CHOLESTEROL, TRIGLYCERIDES, HDL) - THYROID STIMULATING HORMONE [...] at a future visit. If applicable, the [facility] database was accessed to review any controlled substance prescription claims data. If the patient is taking prescribed medications, the [facility] prescription claims data in [employer] was reviewed to assess patient compliance with [...] Type Priority Associated Diagnoses Date/Time LIPID PANEL (62838)(TOTAL LAB Routine Controlled type 2 06/01/2019 8:53 [...] Routine Controlled type 2 1 Occurrences starting (66855)(TOTAL diabetes mellitus 06/01/2019 until CHOLESTEROL, without complication, [...] Controlled type 2 Results for this PANEL (21052) AM CDT diabetes mellitus procedure are in [...] AM CDT) WBC 6.51 4.30 - 11.10 [facility] 10*3/L HOSPITAL LAB[facility]ORY RBC 4.45 3.93 - 5.25 [facility] 10*6/L [facility]ITAL [facility] HGB 13.8 11.6 - 15.0 [facility] g/dL [facility] HCT 42.5 35.7 - 45.2 % [facility] MCV 95.5 80.6 - 95.5 fL [facility] MCH 31.0 25.9 - 32.8 pg [facility] MCHC 32.5 31.6 - 35.1 [facility] g/dL [facility] RDW-SD 48.2 39.0 - 49.9 fL [facility] RDW-CV 13.8 12.0 - 15.5 % [facility] PLT 288 166 - 358 [facility] 10*3/L [facility] MPV 9.4 (L) 9.5 - 12.9 fL [facility] NRBC/100 WBC 0.0 0.0 - 10.0 /100 [facility] WBCs [facility] NRBC x10^3 <0.01 10*3/L [facility] GRAN MAT (NEUT) % 45.3 % [facility] IMM GRAN % 0.30 % [facility] LYMPH % 36.9 % [facility] MONO % 8.1 % [facility] EOS % 8.0 % [facility] BASO % 1.4 % [facility] GRAN MAT x10^3(ANC) 2.95 1.88 - 7.09 [facility] 10*3/uL HOSPITAL LAB[facility] IMM GRAN x10^3 <0.03 0.00 - 0.06 [facility] 10*3/uL [facility] LYMPH x10^3 2.40 1.32 - 3.29 [facility] 10*3/uL [facility] MONO x10^3 0.53 0.33 - 0.92 [facility] 10*3/uL HOS[facility]ITAL [facility] EOS x10^3 0.52 (H) 0.03 - 0.39 [facility] 10*3/uL [facility] BASO x10^3 0.09 (H) 0.01 - 0.07 [facility] 10*3/uL [facility] Specimen Blood - ARM, LEFT Performing Organization Address [facility] Phone Number [facility] CLIA: [id number], [address] [place] [address] FREE T4 (06/01/2019 8:53 AM CDT) FREE T4 0.93 0.78 - 2.20 ng/dL [facility] Specimen Blood - ARM, LEFT Performing Organization Address [facility] Phone Number [facility] CLIA: [id number], [address] [place] [address] THYROID STIMULATING HORMONE (06/01/2019 8:53 AM CDT) TSH 6.05 (H) 0.45 - 4.70 mIU/L [facility] Specimen Blood - ARM, LEFT Performing Organization Address [facility] Phone Number [facility] CLIA: [id number], [address] [place] [address] GLYCOSYLATED HEMOGLOBIN (A1C) (06/01/2019 8:53 AM CDT) HGB A1C 5.5 4.0 - 6.0 % NGSP [facility] Specimen Blood - ARM, LEFT Narrative Performed At %A1C (NGSP) Interpretation (ADA) [facility] 4.8-5.6 Normal or (Non-Diabetic Range) 5.7-6.4 Increased Risk (Pre-Diabetic) >6.5Diabetes Indicated Performing Organization Address [facility] Phone Number [facility] CLIA: [id number], [address] [place] [address] COMP. METABOLIC PANEL (63378) (06/01/2019 8:53 AM CDT) NA 144 135 - 145 [facility] mmol/L [facility] K 5.1 (H) 3.5 - 5.0 [facility] mmol/L [facility] CL 105 98 - 108 mmol/L [facility] CO2 TOTAL 30 23 - 31 mmol/L [facility] AGAP 9 2 - 16 [facility] BUN 19 7 - 23 mg/dL [facility] GLUCOSE 100 70 - 110 mg/dL [facility] CREATININE 0.83 0.50 - 1.04 [facility] mg/dL [facility] TOTAL BILI 0.9 0.1 - 1.1 mg/dL [facility] CALCIUM 10.0 8.6 - 10.6 [facility] mg/dL [facility] T PROTEIN 6.8 6.3 - 8.2 g/dL [facility] ALBUMIN 4.3 3.5 - 5.0 g/dL [facility] ALK PHOS 58 34 - 122 U/L [facility] ALT(SGPT) 22 9 - 51 U/L [facility] AST(SGOT) 20 13 - 40 U/L [facility] eGFR Calculation 67.6 mL/min/1.73m2 [facility] [place]) eGFR Calculation 81.9 mL/min/1.73m2 [facility] () [facility] Specimen Blood - ARM, LEFT Narrative Performed At Association of Glomerular Filtration Rate (GFR) [facility] and Staging of Kidney Disease* + [...] tests). Performing Organization Address City/State/Zipcode Phone Number [facility] CLIA: [id number], [address] [place] [address] [facility] documented in this encounter Visit Diagnoses Diagnosis [...] O. BOX Medicare & B ent [phone] [place] [phone] BCBS OF BCBS [id number] 2012-Pres [phone] [address] BOX Medicare [place] TRADITIONAL ent [phone] [place] [address] documented as of this encounter
--- OUTSIDE RECORDS SUMMARY | 2019-08-27 00:56 | XMS REPORT | Summary of Care ---
:1945 Author Organization [facility] Address [address] [place] [address] Care Team Providers Name Role Phone Kate Brown MD Primary Care Provider Reason for Visit Reason Comments Medicare Annual Wellness Encounter Details Date Type Department Care Team Description 06/04/2019 Pre Visit Outreach [facility] Family Kate Brown Medicare Annual Medicine - Harinder Hsu MD Wellness [address] [facility] [place] [phone] Allergies Active Allergy Reactions Severity Noted Date [...] Overview: Added automatically from request for surgery [id number] Biliary dyskinesia 03/27/2018 Left groin pain 03/27/2018 Screening for colorectal cancer 03/24/2018 Overview: Added automatically from request for surgery [id number] Microscopic hematuria 09/05/2017 Elevated AST (SGOT) 05/20/2017 [...] filedocumented in this encounter Plan of Treatment Date Type Specialty Care Team Description 06/06/2019 Appointment Radiology Kate Brown MD [address] [place] [address] [place] [address] 06/26/2019 Office Visit Family Medicine Kate Brown MD [address] [place] [address] [place] [phone] Health Maintenance Due Date Last Done Comments [...] Problems Progress Quit using Tobacco Use No [place], tobacco [place] A, (cigarettes, MD smokeless, etc) documented as of this encounter Results Not on filedocumented in this encounter Insurance Payer Benefit Plan / Subscriber ID Effective Phone Address Type Group Dates MEDICARE MEDICARE PART A xxxxxxxxxxx 2012-Pres [phone] [address] Medicare & B ent [phone] [id number] [place] [phone] BCBS OF BCBS [id number] 2012-Pres [phone] Medicare [place] TRADITIONAL ent [id number] [place] [address] documented as of this encounter
--- OUTSIDE RECORDS SUMMARY | 2019-08-27 00:57 | XMS REPORT | Summary of Care ---
:1945 Author Organization [facility] Address [address] [place] [address] Care Team Providers Name Role Phone Kate Brown MD Primary Care Provider Reason for Visit Reason Comments Refill Request Rx Concern/Question Encounter Details Date Type Department Care Team Description 06/22/2019 Refill [facility] Family Kate Brown, Refill Request; Rx Medicine - Harinder MOHR Concern/Question [address] [place] [address] [place], [place] [phone] Allergies Active Allergy Reactions Severity Noted Date Comments Codeine Other - See comments 12/07/2016 Levofloxacin Palpitations 12/07/2016 Sulfamethoxazole Shortness of Breath 12/07/2016 documented as of this encounter (statuses as of 06/22/2019) Medications Medication Sig Dispensed Refills Start End Status Date Date CALCIUM PHOSPHATE Take by 0 Active TRIB/VIT D3 (CITRACAL + mouth. D3, CALCIUM PHOS, ORAL)Indications: Vitamin D deficiency albuterol 2.5 mg /3 mL Inhale 3 mL 100 Vial 1 Active (0.083 %) nebulizer every 4 7 solutionIndications: (four) hours Acute bacterial as needed for bronchitis, COPD Wheezing or exacerbation Shortness of Breath. ipratropium 0.02 % Inhale 2.5 mL 100 Vial 1 Active nebulizer every 4 7 solutionIndications: (four) hours Acute bacterial as needed for bronchitis, COPD Wheezing or exacerbation Shortness of Breath. psyllium seed, with Take by 0 Active dextrose, (FIBER ORAL) mouth. TIZANIDINE 4 mg TAKE 1/2 TO 1 270 tablet 2 Active tabletIndications: TABLET BY 9 Muscle spasm of back MOUTH EVERY 8 HOURS NEEDED FOR MUSCLE PAIN OR SPASM metFORMIN 850 mg Take 1 tablet 90 tablet 1 Active tabletIndications: by mouth 9 Controlled type 2 every diabetes mellitus evening. without complication, without long-term current use of insulin fluticasone-salmeterol Inhale 1 Puff 1 Each 5 Active (ADVAIR DISKUS) 250-50 every 12 9 mcg/dose inhalation (twelve) diskIndications: Chronic hours. obstructive pulmonary disease, unspecified COPD type albuterol (PROAIR HFA) Inhale 2 8.5 g 1 Active 90 mcg/actuation Puffs every 6 9 inhalerIndications: (six) hours Chronic obstructive as needed for pulmonary disease, Wheezing or unspecified COPD type Shortness of Breath. SERTRALINE 100 mg TAKE 1 TABLET 90 tablet 3 Active tabletIndications: BY MOUTH 9 Chronic insomnia, EVERY MORNING History of depression varenicline (CHANTIX Take 1 tablet 56 tablet 4 Active CONTINUING MONTH BOX) 1 by mouth 2 9 mg tabletIndications: (two) times Tobacco dependence daily. LEVOTHYROXINE 25 mcg TAKE 1 TABLET 90 tablet 1 Active tabletIndications: BY MOUTH 9 Acquired hypothyroidism EVERY MORNING apixaban 2.5 mg Take 1 tablet 60 tablet 5 Active tabletIndications: by mouth 2 9 Chronic anticoagulation (two) times daily. lovastatin 20 mg Take 1 tablet 90 tablet 1 Active tabletIndications: by mouth 9 Hypercholesterolemia daily. lovastatin 20 mg Take 1 tablet 90 tablet 2 Discontinued tabletIndications: by mouth 9 019 Hypercholesterolemia daily. 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 Pulmonary nodule 08/30/2018 Overview: 08/25/2018 CT: Right, 2mm Recurrent left inguinal hernia 03/28/2018 Overview: Added automatically from request for surgery [id number] Biliary dyskinesia 03/27/2018 Left groin pain 03/27/2018 Screening for colorectal cancer 03/24/2018 Overview: Added automatically from request for surgery [id number] Microscopic hematuria 09/05/2017 Elevated AST (SGOT) 05/20/2017 Vitamin D deficiency 12/07/2016 Acquired hypothyroidism 12/07/2016 Mixed hyperlipidemia 12/07/2016 Diabetes type 2, controlled 12/07/2016 Chronic insomnia 12/07/2016 Essential hypertension 12/07/2016 COPD (chronic obstructive pulmonary disease) 12/07/2016 documented as of this encounter (statuses as of 06/22/2019) Immunizations Name Administration Dates Next Due Pneumococcal [...] Treatment Date Type Specialty Care Team Description 06/26/2019 Office Visit Family Medicine Kate Brown MD [address] [place] [address] [place] [phone] Health Maintenance Due Date Last Done Comments EYE EXAM 1957 DTaP,Tdap,and Td Vaccines (1 - 1966 Tdap) Zoster Recombinant Vaccine 1997 (SHINGRIX) (1 of 2) Medicare Wellness Visit 2012 Osteoporosis Screening 2012 INFLUENZA VACCINE (#1) 2019 LUNG CANCER SCREEN: Recommended 08/25/2019 08/25/2018 for age 55-80 with 30 + pack year history HgA1C 12/02/2019 06/01/2019, 03/21/2018, 05/16/2017, Additional history exists FOOT EXAM 2020 2019, 03/21/2018, 03/21/2018, Additional history exists CREATININE (SERUM) 06/01/2020 06/01/2019, 2019, 03/21/2018, Additional history exists LDL-C 06/01/2020 06/01/2019, 03/21/2018, 05/16/2017, Additional history exists URINE MICROALBUMIN 06/01/2020 06/01/2019, 03/21/2018, 05/16/2017 MAMMOGRAM 06/06/2020 06/06/2019, 03/30/2018, 12/15/2016 COLONOSCOPY 04/25/2028 04/25/2018, 10/17/2012 (Previously completed) PNEUMOCOCCAL VACCINES 65+ Completed 12/07/2016, 10/17/2012 HEPATITIS C (HCV) SCREEN Completed 03/21/2018, 03/21/2018 documented as of this encounter Goals Goal Patient Goal Associated Recent Patient-Stated? Author Type Problems Progress Quit using Tobacco Use No Kevin, tobacco Wondiful A, (cigarettes, MD smokeless, etc) documented as of this encounter Results Not on filedocumented in this encounter Visit Diagnoses Diagnosis Hypercholesterolemia Pure hypercholesterolemia Essential hypertension Unspecified essential hypertension documented in this encounter Insurance Payer Benefit Plan / Subscriber ID Effective Phone Address Type Group Dates MEDICARE MEDICARE PART A xxxxxxxxxxx 2012-Pres [phone] [address] O[address] Medicare & B ent [phone] [id number] [place] [phone] BCBS OF BC [id number] 2012-Pres [phone] [address] Medicare [place] TRADITIONAL ent [phone] [id number] [place] [address] documented as of this encounter
--- OUTSIDE RECORDS SUMMARY | 2019-08-27 00:57 | XMS REPORT | Summary of Care ---
:1945 Author Organization [facility] [[email or web address] - [facility] Address [address] [place] [address] Care Team Providers Name Role Phone Kate Brown MD Primary Care Provider Reason for Visit Reason Comments Orders Medication Dose Change Encounter Details Date Type Department Care Team Description 06/06/2019 Telephone [facility] Family Kate Brown, Orders; Medication Medicine - Harinder MOHR Dose Change [address] [facility] [phone] Allergies Active Allergy Reactions Severity Noted Date Comments Codeine Other - See comments 12/07/2016 Levofloxacin Palpitations 12/07/2016 Sulfamethoxazole Shortness of Breath 12/07/2016 documented as of this encounter (statuses as of 06/06/2019) Medications Medication Sig Dispensed Refills Start End [...] losartan-hydrochlorothia Take 1 tablet 90 tablet 1 Active zide 100-12.5 mg per by mouth 9 tabletIndications: daily. Essential hypertension metFORMIN 850 mg Take 1 tablet 90 [...] XT 180 mg 24 hr TAKE 1 90 capsule 3 Active capsuleIndications: CAPSULE BY 9 Essential hypertension MOUTH DAILY SERTRALINE 100 mg TAKE 1 TABLET 90 [...] mg Take 1 tablet 90 tablet 2 Active tabletIndications: by mouth 9 Hypercholesterolemia daily. lovastatin 10 mg Take 1 tablet 90 tablet 1 Discontinued tabletIndications: by mouth 9 019 Hypercholesterolemia daily. 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/05/2019 Pulmonary nodule 08/30/2018 Overview: 08/25/2018 CT: Right, 2mm Recurrent left inguinal hernia 03/28/2018 Overview: Added automatically from request for surgery [id number] Biliary dyskinesia 03/27/2018 Left groin pain 03/27/2018 Screening for colorectal cancer 03/24/2018 Overview: Added automatically from request for surgery [id number] Microscopic hematuria 09/05/2017 Elevated AST (SGOT) 05/20/2017 Vitamin D deficiency 12/07/2016 Acquired hypothyroidism 12/07/2016 Mixed hyperlipidemia 12/07/2016 Diabetes type 2, controlled 12/07/2016 Chronic insomnia 12/07/2016 Essential hypertension 12/07/2016 COPD (chronic obstructive pulmonary disease) 12/07/2016 documented as of this encounter (statuses as of 06/06/2019) Immunizations Name Administration Dates Next Due Pneumococcal [...] Office Visit Family Medicine Kate Brown MD [address] [place] [address] [place] [address] Name Type Priority Associated Diagnoses Order Schedule THYROID STIMULATING LAB Routine Elevated TSH 1 Occurrences starting HORMONE Acquired hypothyroidism 06/06/2019 until Medication monitoring 09/06/2019 encounter POTASSIUM SERUM LAB Routine Hyperkalemia 1 Occurrences starting 06/06/2019 until 09/06/2019 Health Maintenance Due Date Last Done Comments [...] Problems Progress Quit using Tobacco Use No [place], tobacco Wondiful A, (cigarettes, MD smokeless, etc) documented as of this encounter Results Not on filedocumented in this encounter Visit Diagnoses Diagnosis Hyperkalemia - Primary Hyperpotassemia Hypercholesterolemia Pure hypercholesterolemia Elevated TSH Other abnormal blood chemistry Acquired hypothyroidism Unspecified hypothyroidism Medication monitoring encounter Encounter for therapeutic drug monitoring documented in this encounter Insurance Payer Benefit Plan / Subscriber ID Effective Phone Address Type Group Dates MEDICARE MEDICARE PART A xxxxxxxxxxx 2012-Pres [phone] [address] Medicare & B ent [phone] [id number] [place] [phone] BCBS OF BCBS [id number] 2012-Pres [phone] Medicare [place] TRADITIONAL ent [id number] [place] [address] documented as of this encounter
--- OUTSIDE RECORDS SUMMARY | 2019-08-27 00:57 | XMS REPORT | Summary of Care ---
:1945 Author Organization [facility] Address [address] [place] [id number] Care Team Providers Name Role Phone KevinZacharystu Hsu MD Primary Care Provider Reason for Visit Reason Comments Refill Request Encounter Details Date Type Department Care Team Description 06/21/2019 Refill [facility] Mary Ortiz FNP Refill Request - [facility] [address] [place] [address] [place], [place] [id number] Allergies Active Allergy Reactions Severity Noted Date [...] Active tabletIndications: by mouth 9 Hypercholesterolemia daily. LOSARTAN-HYDROCHLOROTHIA TAKE 1 TABLET 90 tablet 1 Active ZIDE 100-12.5 mg per BY MOUTH 9 tabletIndications: DAILY Essential hypertension CARTIA XT 180 mg 24 hr TAKE 1 90 capsule 1 Active capsuleIndications: CAPSULE BY 9 Essential hypertension MOUTH DAILY losartan-hydrochlorothia Take 1 tablet 90 tablet 1 Discontinued zide 100-12.5 mg per by mouth 9 019 tabletIndications: daily. Essential hypertension CARTIA XT 180 mg 24 hr TAKE 1 90 capsule 3 Discontinued capsuleIndications: CAPSULE BY 9 019 Essential hypertension MOUTH DAILY 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 Pulmonary nodule 08/30/2018 Overview: 08/25/2018 CT: Right, 2mm Recurrent left inguinal hernia 03/28/2018 Overview: Added automatically from request for surgery [id number] Biliary dyskinesia 03/27/2018 Left groin pain 03/27/2018 Screening for colorectal cancer 03/24/2018 Overview: Added automatically from request for surgery [id number] Microscopic hematuria 09/05/2017 Elevated AST (SGOT) 05/20/2017 [...] Office Visit Family Medicine Kate Brown MD [address] [place] [address] [place] [phone] Health Maintenance Due Date Last Done Comments [...] filedocumented in this encounter Visit Diagnoses Diagnosis Essential hypertension Unspecified essential hypertension documented in this encounter Insurance Payer Benefit Plan / Subscriber ID Effective Phone Address Type Group Dates MEDICARE MEDICARE PART A xxxxxxxxxxx 2012-Pres [phone] [address] Medicare & B ent [id number] [id number] [place] [phone] BCBS OF BCBS [id number] 2012-Pres [phone] Medicare [place] [employer] ent [phone] [id number] [place] [address] documented as of this encounter
--- OUTSIDE RECORDS SUMMARY | 2019-08-27 00:57 | XMS REPORT | Summary of Care ---
:1945 Author Organization [facility] Address [address] [place] [address] Care Team Providers Name Role Phone Kate Brown MD Primary Care Provider Reason for Referral Radiology Services (Routine) Status Reason Specialty Diagnoses / Referred By Referred To Procedures Contact Contact Closed Diagnostic Diagnoses Breast cancer screening Kate Brown Radiology Procedures BI SCREENING MAMMOGRAM BILATERAL MD Aracelis [address] [facility] [address] Radiology Services (Routine) Status Reason Specialty Diagnoses / Referred By Referred To Procedures Contact Contact Closed Diagnostic Diagnoses Breast cancer screening Kate Brown Radiology Procedures BI SCREENING MAMMOGRAM BILATERAL MD Aracelis [address] [facility] [place] [address] Reason for Visit Radiology Services (Routine) Status Reason Specialty Diagnoses / Referred By Referred To Procedures Contact Contact Closed Diagnostic Diagnoses Breast cancer screening Kate Brown Radiology Procedures BI SCREENING MAMMOGRAM BILATERAL MD Aracelis [address] [facility] [place] [address] Encounter Details Date Type Department Care Team Description 06/06/2019 Hospital Encounter [facility] Kate Brown Arrived [facility] [address] [facility] [address] [place] [address] [place] [address] [place], [place] [phone] [address] [phone] Allergies Active Allergy Reactions Severity Noted Date Comments Codeine Other - See comments 12/07/2016 Levofloxacin Palpitations 12/07/2016 Sulfamethoxazole Shortness of Breath 12/07/2016 documented as of this encounter (statuses as of 06/07/2019) Medications Medication Sig Dispensed Refills Start End [...] 9 Chronic anticoagulation (two) times daily. lovastatin 10 mg Take 1 tablet 90 tablet 1 Discontinued tabletIndications: by mouth 9 019 Hypercholesterolemia daily. documented as of this encounter (statuses as of 06/07/2019) Active Problems Problem Noted Date PAD (peripheral artery disease) 03/05/2019 Coumadin resistance 03/05/2019 Pulmonary nodule 08/30/2018 Overview: 08/25/2018 CT: Right, 2mm Recurrent left inguinal hernia 03/28/2018 Overview: Added automatically from request for surgery [id number] Biliary dyskinesia 03/27/2018 Left groin pain 03/27/2018 Screening for colorectal cancer 03/24/2018 Overview: Added automatically from request for surgery [id number] Microscopic hematuria 09/05/2017 Elevated AST (SGOT) 05/20/2017 Vitamin D deficiency 12/07/2016 Acquired hypothyroidism 12/07/2016 Mixed hyperlipidemia 12/07/2016 Diabetes type 2, controlled 12/07/2016 Chronic insomnia 12/07/2016 Essential hypertension 12/07/2016 COPD (chronic obstructive pulmonary disease) 12/07/2016 documented as of this encounter (statuses as of 06/07/2019) Immunizations Name Administration Dates Next Due Pneumococcal [...] Office Visit Family Medicine Kate Brown MD [address] [place] [address] [place] [address] Health Maintenance Due Date Last Done [...] Problems Progress Quit using Tobacco Use No danielle Brown, (cigarettes, smokeless, etc) documented as of this encounter Procedures Procedure Name Priority Date/Time Associated Comments Diagnosis BI SCREENING Routine 06/06/2019 11:03 AM Breast cancer Results for this MAMMOGRAM BILATERAL CDT screening procedure are in the results section. CONSENT/REFUSAL FOR Routine 06/06/2019 10:32 AM DIAGNOSIS AND CDT TREATMENT ASSIGNMENT OF Routine 06/06/2019 10:32 AM BENEFITS CDT documented in this encounter Results BI SCREENING MAMMOGRAM BILATERAL (06/06/2019 11:03 AM CDT) Specimen Narrative Performed At Examination: PACS BI SCREENING MAMMOGRAM BILATERAL History: Patient is 74 year old and is seen for:74yo f who is due for a screening mammogram..Hormone history includes other. Surgical history includes hysterectomy. No relevant medical history has been documented for this patient. Computer-aided detection (CAD) utilized. Comparisons: 03/30/2018 BI SCREENING MAMMOGRAM BILATERAL (No Change) and 12/15/2016 DIGITAL MAMMOGRAM, SCREENING (No Change) Findings: The breasts are almost entirely fatty. Left There is an intramammary lymph node seen in the upper outer quadrant of the left breast in the posterior depth. Compared to the previous study, there are no significant changes. Bilateral There are vascular and round calcifications in a diffuse distribution seen in both breasts. Compared to the previous study, there are no significant changes. Impression: No signs of malignancy. Recommendation: Annual mammographic follow-up - Right Annual mammographic follow-up - Left Annual mammographic follow-up - Bilateral BI-RADS Category: Both 2 - Benign Performing Organization Address City/State/Zipcode Phone Number PACS documented in this encounter Visit Diagnoses Diagnosis Breast cancer screening Breast screening, unspecified documented in this encounter Insurance Payer Benefit Plan / Subscriber ID Effective Phone Address Type Group Dates MEDICARE MEDICARE PART A xxxxxxxxxxx 2012-Pres [phone] [address] Medicare & B ent [phone] [id number] [place] [phone] BCBS OF BCBS [id number] 2012-Pres [phone] Medicare [place] [employer] ent [phone] [id number] [place] [address] documented as of this encounter
--- OUTSIDE RECORDS SUMMARY | 2019-08-27 00:57 | XMS REPORT | Summary of Care ---
:1945 Author Organization [facility] - [facility] Address [address] [place] [address] Care Team Providers Name Role Phone KevinZachary ruffstu Hsu MD Primary Care Provider Encounter Details Date Type Department Care Team Description 06/26/2019 Orders Only [facility] Doctor Unassigned, No [address] [facility] [place] [address] [address] [place] [address] Allergies Active Allergy Reactions Severity Noted Date Comments Codeine Other - See comments 12/07/2016 Levofloxacin Palpitations 12/07/2016 Sulfamethoxazole Shortness of Breath 12/07/2016 documented as of this encounter (statuses as of 06/26/2019) Medications Medication Sig Dispensed Refills Start Date [...] by mouth 2 anticoagulation (two) times daily. LOSARTAN-HYDROCHLOROTHIAZI TAKE 1 TABLET 90 tablet 1 06/22/2019 Active DE 100-12.5 mg per BY MOUTH DAILY tabletIndications: Essential hypertension CARTIA XT 180 mg 24 hr TAKE 1 CAPSULE 90 capsule 1 06/22/2019 Active capsuleIndications: BY MOUTH DAILY Essential hypertension lovastatin 20 mg Take 1 tablet 90 tablet 1 06/22/2019 Active tabletIndications: by mouth Hypercholesterolemia daily. documented as of this encounter (statuses as of 06/26/2019) Active Problems Problem Noted Date PAD (peripheral artery disease) 03/05/2019 Coumadin resistance 03/05/2019 Pulmonary nodule 08/30/2018 Overview: 08/25/2018 CT: Right, 2mm Recurrent left inguinal hernia 03/28/2018 Overview: Added automatically from request for surgery [id number] Biliary dyskinesia 03/27/2018 Left groin pain 03/27/2018 Screening for colorectal cancer 03/24/2018 Overview: Added automatically from request for surgery [id number] Microscopic hematuria 09/05/2017 Elevated AST (SGOT) 05/20/2017 Vitamin D deficiency 12/07/2016 Acquired hypothyroidism 12/07/2016 Mixed hyperlipidemia 12/07/2016 Diabetes type 2, controlled 12/07/2016 Chronic insomnia 12/07/2016 Essential hypertension 12/07/2016 COPD (chronic obstructive pulmonary disease) 12/07/2016 documented as of this encounter (statuses as of 06/26/2019) Immunizations Name Administration Dates Next Due Pneumococcal [...] Office Visit Family Medicine Kate Brown MD [address] [place] [phone] Health Maintenance Due Date Last Done Comments [...] Procedure Name Priority Date/Time Associated Diagnosis Comments NOTICE OF BILLING Routine 06/26/2019 12:50 PM CDT PRACTICES FOR MEDICARE PATIENTS documented in this encounter Results Not on filedocumented in this encounter Insurance Payer Benefit Plan / Subscriber ID Effective Phone Address Type Group Dates MEDICARE MEDICARE PART A xxxxxxxxxxx 2012-Pres [phone] [address] Medicare & B ent [id number] [place] [id number] BCBS OF BCBS [id number] 2012-Pres [phone] Medicare [place] [employer]ITION[employer] ent [phone] [id number] [place] [address] documented as of this encounter
--- OUTSIDE RECORDS SUMMARY | 2019-08-27 00:58 | XMS REPORT | Summary of Care ---
:1945 Author Organization [facility] Address [address] [place] [id number] Care Team Providers Name Role Phone Kate Brown MD Primary Care Provider Pinky Maxwell Unavailable Olman Cheung MD Unavailable Rajinder Aguilera Unavailable Jamel Angeles Unavailable Unavailable Davion Suarez Unavailable Catherine Fields DO Unavailable Aleah Torres MD Unavailable Reason for Referral Radiology Services (Routine) Status Reason Specialty Diagnoses / Referred By Referred To Procedures Contact Contact New Request Diagnostic Diagnoses Osteoporosis screening Postmenopausal state Kevin Radiology Procedures DEXA AXIAL (HIP AND SPINE) Kate Hsu MD [address] [place] [address] [place] [phone] (Routine) Status Reason Specialty Diagnoses / Referred By Referred To Procedures Contact Contact Authorized Patient is Dermatology Diagnoses Skin cancer screening Rosita Brown David Established with Procedures CONSULT/REFERRAL DERMATOLOGY Kate Hsu MD WMD a Specific [address] [place], [place] [address] [place] [phone] Phone: Fax: MRI/CAT Scan (Routine) Status Reason Specialty Diagnoses / Referred By Referred To Procedures Contact Contact New Request Diagnostic Diagnoses Personal history of tobacco use Encounter for screening for lung cancer [place], Radiology Procedures CT LUNG CANCER SCREENING Kate Hsu MD [address] [place] [address] [place] [phone] Radiology Services (Routine) Status Reason Specialty Diagnoses / Referred By Referred To Procedures Contact Contact New Request Diagnostic Diagnoses Screening for AAA (abdominal aortic aneurysm) Personal history of tobacco use [place], Radiology Procedures US ABDOMINAL AORTA SCREEN AAA Kate Hsu MD [address] [place] [address] [place] [address] (Routine) Status Reason Specialty Diagnoses / Procedures Referred By Referred To Contact Contact New Request Patient Diagnoses Encounter for colorectal cancer screening History of colon polyps Kwame Brown Nizam Requested Procedures CONSULT/REFERRAL GASTROENTEROLOGY Alfa Coats MD Specific [address] [place] [address] [place] [phone] Phone: Fax: Reason for Visit Reason Comments Medicare Annual Wellness LAB WORK Encounter Details Date Type Department Care Team Description 06/26/2019 Office Visit [facility] Kate Brown Medicare annual wellness visit, initial (Primary Dx); Medicine - Harinder Hsu MD Encounter for colorectal cancer screening; [address] [place] [address] History of colon polyps; Drive [place], [place] Screening for AAA (abdominal aortic aneurysm); [place] [address] Personal history of tobacco use; [phone] Encounter for screening for lung cancer; [phone] Skin cancer screening; Osteoporosis screening; Postmenopausal state; Vitamin D deficiency; Elevated TSH; Acquired hypothyroidism; Medication monitoring encounter; Hyperkalemia Allergies Active Allergy Reactions Severity Noted Date [...] Overview: Added automatically from request for surgery [id number] Biliary dyskinesia 03/27/2018 Left groin pain 03/27/2018 Screening for colorectal cancer 03/24/2018 Overview: Added automatically from request for surgery [id number] Microscopic hematuria 09/05/2017 Elevated AST (SGOT) 05/20/2017 Vitamin D deficiency 12/07/2016 Acquired hypothyroidism 12/07/2016 Mixed hyperlipidemia 12/07/2016 Diabetes type 2, controlled 12/07/2016 Chronic insomnia 12/07/2016 Essential hypertension 12/07/2016 COPD (chronic obstructive pulmonary disease) 12/07/2016 documented as of this encounter (statuses as of 06/26/2019) Immunizations Name Administration Dates Next Due Influenza High Dose 08/14/2018 Pneumococcal 13 Conjugate, PCV13 (Prevnar 13) 12/07/2016 [...] Sign Reading Time Taken Comments Blood Pressure 122/63 06/26/2019 1:11 PM CDT Pulse 65 06/26/2019 1:11 PM CDT Temperature 36.4 C (97.5 F) 06/26/2019 1:11 PM CDT Respiratory Rate - - Oxygen Saturation - - Inhaled Oxygen Concentration - - Weight 70.8 kg (156 lb) 06/26/2019 1:11 PM CDT Height 160 cm (5' 3") 06/26/2019 1:11 PM CDT Body Mass Index 27.63 06/26/2019 1:11 PM CDT documented in this encounter Patient Instructions Patient InstructionsKate Brown MD - 06/26/2019 1:00 PM CDT Discuss the shingles vaccine (Shingrix) and the tetanus + whooping cough (Tdap) vaccine with your pharmacist. Adult Immunization Schedule Vaccine How often Disease prevented Who needs it Influenza Every year Flu. This can be especially dangerous to elderly adults or people with immune disorders. All adults Tetanus, diphtheria (Td); or Tetanus, diphtheria, and pertussis (Tdap)* One dose of Tdap, then one dose of Td as a booster every 10 years Tetanus(lockjaw) , a disease that causes muscles to spasm Diphtheria,an infection that causes fever, weakness, and breathing problems Pertussis, also known as whooping cough. This is a highly contagious disease that can cause serious illness. All adults *This vaccine should be given during each no matter how many years since the last vaccine.The vaccine increases protection foryour . A is too young to get the vaccine, but at the highest risk for severe illness and from pertussis. Varicella (Shaunna) One series of 2 injections Chickenpox. This is a disease that causes itchy skin bumps, fever, and tiredness. It can lead to scarring, pneumonia, or brain inflammation. Adults who dont have evidence of immunity This vaccine should not be given to women. Women should avoid for4 weeks after the vaccine. Human papillomavirus (HPV) One series of 3 injections Cervical cancer, caused by certain types ofHPV Vaginal and vulvar cancer Penile cancer Head and neck cancers Anal cancer Genital warts Females and males ages 15 to 26 Ask your healthcare provider if this vaccine is right for you. Vaccine How often Disease prevented Who needs it Zoster--- 1 or 2 doses, depending on the type of vaccine: The CDC recommends a 2-dose vaccine; the second dose given 2 to 6 months after the first Live zoster vaccine--- is 1 dose Herpes zoster (shingles), a painful rash marked by blisters Adults ages 50 and older, including those who have already had shingles. ---You should not get the live vaccine if your immune systemis low. For example, if you have HIV, are taking medicines that suppressyour immune system , orare getting cancer treatment. Measles, mumps, rubella (MMR) 1 or 2 doses, for ages 19 through 49; 1 dose for ages 50 and older if at risk Measles causes red spots, fever, and coughing. It also causes swelling in the salivary glands and may affect the ovaries or testes. Rubella(Northern Irish measles) can cause defects if a woman catches it. Adults born in 1957 or later who are not known to be immune to all 3 of these diseases. Ask your healthcare provider ifyou need a second dose. This vaccine should notbe given to women. Women shouldavoid [id number] after vaccination. Pneumococcal (PCV 13) 1 dose Pneumonia. This is an infection that causes inflammation inyour lungs. It can lead to . Adults ages 65 and older. Also, adults ages 19 and older with weak immune systems or any of these health conditions:chronic renal failure, nephrotic syndrome, functional or anatomic asplenia, cerebrospinal fluid (CSF)leaks, or cochlear implants. This vaccine adds extra protection to PCV 23 and should be given about 2 months before PCV 23. Pneumococcal (PPSV23) 1 or 2 doses Pneumonia. This is an infection that causes inflammation in your lungs. It can lead to . Adults ages 65 and older. Also, adults with chronic illnesses, such asasthma, COPD, heart disease, diabetes, liver disease, alcoholism, sickle cell disease, or history ofsplenectomy. In addition, adults with an immune disorder and adults who smoke cigarettes. This vaccine is recommended for all adults regardless of immune status. Vaccine How often Disease prevented Who needs it Meningococcal (MCV or MPSV) 1 or more doses Meningococcal disease (bacterial meningitis). This is inflammation of the membrane covering the brain and spinal cord. It can lead to . Adults with immune deficiencies or high risk of exposure. Also, college freshmen living in dormitories and recruits. Hepatitis A (HepA) One series of 2 injections Hepatitis A. This is an infection that can result in acute liver inflammation and yellow skin and whites of the eyes (jaundice). Adults with risk factors, such as clotting disorders or chronic liver disease, and adults with high risk of exposure. This includes men who have sex with men, IV drug users, and travelers to countries where hepatitis A is common. Hepatitis B (HepB) One series of 3 injections Hepatitis B. This is an infection that causes chronic,severe liver disease. Adults with high risk of exposure, such as healthcare providers and sanitationworkers, and adults with diabetes Travelers diseases As needed Infections such as cholera, typhoid, yellow fever, polio, rabies, meningococcal disease, hepatitis A, hepatitis B Adults traveling out of the country. Required vaccines will vary, depending on the country you visit. Check the CDC website: www.cdc.gov. Based on the CDC National Immunization Program recommendations for adults Date Last Reviewed: 11/17/201619993051-4159 [employer]. [address] [place] [address]. All rights reserved. This information is not intended as a substitute for professional medical care. Always follow your healthcare professional's instructions. documented in this encounter Progress Notes Dominique Clay - 06/26/2019 1:00 PM CDTVenipuncture Collection performed by clean technique. Total of 1 attempts were made. Slight pressureand a bandage/ dressing were applied to the site(s). The patient experienced no complications. Specimens were sent processed to [facility] laboratories. Kate batres MD - 06/26/2019 1:00 PM CDT CC: FIRST ANNUAL WELLNESS VISIT (AWV) ELVIS Burnham is a 74 year old female is here for her FIRST ANNUAL WELLNESS VISIT (AWV). Patient Care Team: Kate Brown MD as PCP - General (FM-FAMILY MEDICINE) Pinky Maxwell (IM-INTERNAL MEDICINE) Olman Cheung MD (OPH-OPHTHALMOLOGY) Rajinder Aguilera (IM-CARDIOVASCULAR DISEASE) Jamel Angeles (ALEJANDRINA-VASCULAR SURGERY) Davion Suarez (ORT-ORTHOPAEDIC SURGERY) Catherine Fields DO (IM-PULMONARY DISEASE) Aleah Torres MD (KATHI-OTOLARYNGOLOGY) List additional current known providers and DME suppliers: No DME suppliers. HISTORY Past Medical History: Diagnosis Date Acquired hypothyroidism [...] N/A 04/25/2018 Surgeon: Venkata Brower MD; Location: [facility] OR Location HYSTERECTOMY LAPAROSCOPIC CHOLECYSTECTOMY 05/04/2018 LAPAROSCOPIC CHOLECYSTECTOMY N/A 05/04/2018 Surgeon: Venkata Brower MD; Location: [facility] OR Location LAPAROSCOPIC INGUINAL HERNIORRHAPHY Left 05/04/2018 Surgeon: Venkata Brower MD; Location: [facility] OR Location POSTERIOR LUMBAR INTERBODY SPINAL FUSION RADICAL HYSTERECTOMY REMOVAL OF OVARY/TUBE(S) Family History Problem Relation Age of Onset Alzheimers dementia Mother Diabetes Mother Hypertension Mother Lung Cancer Father Hypertension Father DVT (deep venous thrombosis) Father Cancer Brother tongue Social History Tobacco Use Smoking status: Former Smoker Packs/day: 0.50 Years: 45.00 Pack years: 22.50 Types: Cigarettes Start date: 02/14/2017 Last attempt to quit: 04/03/2018 Years since quittin.2 Smokeless tobacco: Never Used Tobacco comment: Quit smoking 03/2019 Substance Use Topics Alcohol use: Yes Alcohol/week: 0.0 oz Comment: Occasionally Social History Substance and Sexual Activity Drug Use No Social History Substance and Sexual Activity Sexual Activity Not on file Allergies Allergen Reactions Codeine Other - See comments Levaquin [Levofloxacin] Palpitations Sulfamethoxazole Shortness of Breath Current Outpatient Medications: CARTIA XT 180 mg 24 hr capsule, TAKE 1 CAPSULE BY MOUTH DAILY, Disp: 90 capsule, Rfl: 1 LOSARTAN-HYDROCHLOROTHIAZIDE 100-12.5 mg per tablet, TAKE 1 TABLET BY MOUTH DAILY, Disp: 90 tablet, Rfl: 1 lovastatin 20 mg tablet, Take 1 tablet by mouth daily., Disp: 90 tablet, Rfl: 1 apixaban 2.5 mg tablet, Take 1 tablet by mouth 2 (two) times daily., Disp: 60 tablet, Rfl: 5 LEVOTHYROXINE 25 mcg tablet, TAKE 1 TABLET BY MOUTH EVERY MORNING, Disp: 90 tablet, Rfl: 1 varenicline (CHANTIX CONTINUING MONTH BOX) 1 mg tablet, Take 1 tablet by mouth 2 (two) times daily., Disp: 56 tablet, Rfl: 4 SERTRALINE 100 mg tablet, TAKE 1 TABLET BY MOUTH EVERY MORNING, Disp: 90 tablet, Rfl: 3 albuterol (PROAIR HFA) 90 mcg/actuation inhaler, Inhale 2 Puffs every 6 ( six) hours as needed for Wheezing or Shortness of Breath., Disp: 8.5 g, Rfl: 1 fluticasone-salmeterol (ADVAIR DISKUS) 250-50 mcg/dose inhalation disk, Inhale 1 Puff every 12 (twelve) hours., Disp: 1 Each, Rfl: 5 metFORMIN 850 mg tablet, Take 1 tablet by mouth every evening., Disp: 90 tablet, Rfl: 1 TIZANIDINE 4 mg tablet, TAKE 1/2 TO 1 TABLET BY MOUTH EVERY 8 HOURS NEEDED FOR MUSCLE PAIN OR SPASM, Disp: 270 tablet, Rfl: 2 psyllium seed, with dextrose, (FIBER ORAL), Take by mouth., Disp: , Rfl: albuterol 2.5 mg /3 mL (0.083 %) nebulizer solution, Inhale 3 mL every 4 ( four) hours as neededfor Wheezing or Shortness of Breath., Disp: 100 Vial, Rfl: 1 ipratropium 0.02 % nebulizer solution, Inhale 2.5 mL every 4 (four) hours as needed for Wheezing or Shortness of Breath., Disp: 100 Vial, Rfl: 1 CALCIUM PHOSPHATE TRIB/VIT D3 (CITRACAL + D3, CALCIUM PHOS, ORAL), Take by mouth., Disp: , Rfl: - Depression and Other Mood Disorder Assessment Is the patient under current treatment for depression or other mood disorder? Yes, she feels her depression is well-controlled on sertraline. PHQ-2: Over the last 2 weeks, how often have you been bothered by any of the following problems? Little interest or pleasure in doing things: 0 Feeling down, depressed, or hopeless: 0 PHQ-2 Score (_/6): 0 - Opioid Risk Assessment Is the patient on chronic opioid pain medication? No Is the patient identified as at risk for opioid use disorder (personal or family history of substance use disorder or personal history of mental illness)? No How many times in the past year have you used an illegal drug or a prescription medication for nonmedical reasons?: Never - Hearing Impairment Assessment Do you think you have a hearing problem?: No - Activities of Daily Living Assessment Bathing: Independent Dressing: Independent Feeding: Independent Using the toilet: Independent Grooming (brushing teeth or hair): Independent Getting around the house: Independent - Home Safety Assessment Are firearms stored unloaded and securely locked?: N/A Do you have working smoke alarms and a fire extinguisher available for use?: Yes Have throw rugs been removed or fastened down?: (!) No Are electrical cords in working order, easily seen, and out of the walking path? : Yes Are non-slip mats in all bathtubs and showers?: Yes Do all stairways have a working rail or banister?: N/A Are doorways, walkways, and stairs free of clutter?: Yes In the places you walk outside, are there uneven surfaces, cracked sidewalks, slippery steps, or other problems that make you stumble?: No Do you have good light when you walk into your house?: Yes If you were to fall and were unable to get up, would you be able to get help quickly?: Yes Do you slip or have difficulty getting on and off the toilet or in and out of the bath or shower?: No Have you been known to leave the stove on or water running?: No -Fall Risk Assessment Have you fallen two or more times in the past year?: No Do you believe you have a gait or balance problem or are you afraid of falling? : No PHYSICAL EXAM BP 122/63 (BP Location: Left arm, Patient Position: Sitting, BP CUFF SIZE: Adult Medium) | Pulse 65 | Temp 36.4 C (97.5 F) (Tympanic) | Ht 5' 3" ( 1.6 m) | Wt 156 lb (70.8 kg) | BMI 27.63 kg/m - Cognitive Screen (Please complete preferred cognitive screen in Flowsheet Activity) Six-Item Screener Can the patient repeat the three items immediately?: Yes States the correct Year.: Yes States the correct Month.: Yes States the correct day of the week.: Yes Recalls Apple: Yes Recalls Table: Yes Recalls Car: No Items Missed: 1 ASSESSMENT/PLAN After review of the HRA dated 06/26/19 and assessment above, I have identified the following concerns: None Personalized health counseling provided through patient instructions (Medicare Wellness Health Advice) Health Maintenance Summary Status Date EYE EXAM Overdue 1957 DTaP,Tdap,and Td Vaccines Overdue 1966 Zoster Recombinant Vaccine (SHINGRIX) Overdue 1997 Medicare Wellness Visit Overdue 2012 Osteoporosis Screening Overdue 2012 INFLUENZA VACCINE Overdue 06/17/2019 LUNG CANCER SCREEN: Recommended for age 55-80 with 30 + pack year history Next Due 08/25/2019 Done 08/25/2018 CT LUNG CANCER SCREENING HgA1C Next Due 12/02/2019 Done 06/01/2019 GLYCOSYLATED HEMOGLOBIN (A1C) HGB A1C Done 03/21/2018 GLYCOSYLATED HEMOGLOBIN (A1C) HGB A1C Patient has more history with this topic... FOOT EXAM Next Due 2020 Done 2019 Done 03/21/2018 [employer]: FINDINGS - PHYSICAL EXAM - CARDIOVASCULAR - PULSES - PEDAL PULSE TAKEN Patient has more history with this topic... URINE MICROALBUMIN Next Due 06/01/2020 Done 06/01/2019 MICROALBUMIN URINE MICROALB U Done 03/21/2018 MICROALBUMIN URINE MICROALB U Patient has more history with this topic... LDL-C Next Due 06/01/2020 Done 06/01/2019 LIPID PANEL (34946)(TOTAL CHOLESTEROL, TRIGLYCERIDES, HDL) LDL CHOL Done 03/21/2018 LIPID PANEL (96774)(TOTAL CHOLESTEROL, TRIGLYCERIDES, HDL) LDL CHOL Patient has more history with this topic... CREATININE (SERUM) Next Due 06/01/2020 Done 06/01/2019 COMP. METABOLIC PANEL (49858) CREATININE Done 2019 BASIC METABOLIC PANEL (NA, K, CL, CO2, GLUCOSE, BUN, CREATININE , CA) CREATININE Patient has more history with this topic... MAMMOGRAM Next Due 06/06/2020 Done 06/06/2019 BI SCREENING MAMMOGRAM BILATERAL Done 03/30/2018 BI SCREENING MAMMOGRAM BILATERAL Patient has more history with this topic... COLONOSCOPY Next Due 04/25/2028 Done 04/25/2018 COLONOSCOPY (ENDO) Previously completed 10/17/2012 PNEUMOCOCCAL VACCINES 65+ This plan is no longer active. Done 12/07/2016 Imm Admin: Pneumococcal 13 Conjugate, PCV13 (Prevnar 13) Done 10/17/2012 Imm Admin: Pneumococcal Polysaccharide, PPSV23 (PNEUMOVAX) HEPATITIS C (HCV) SCREEN This plan is no longer active. Done 03/21/2018 Done 03/21/2018 HCV ANTIBODY HCV Ab HCV Semi-Quantitative Recommended health maintenance schedule: Ultrasound Screening for AAA Colorectal Cancer Screening Lung Cancer Screening Glaucoma Screening Influenza Vaccination Were advanced care planning documents or end of life goals discussed during the visit? Yes. Specify: POA for healthcare, living will. Follow-up plan is as follows: As scheduled Orders Placed This Encounter Procedures US ABDOMINAL AORTA SCREEN AAA CT LUNG CANCER SCREENING DEXA AXIAL (HIP AND SPINE) VITAMIN D, 25-OH CONSULT/REFERRAL GASTROENTEROLOGY CONSULT/REFERRAL DERMATOLOGY documented in this encounter Plan of Treatment Date Type Specialty Care Team Description 11/26/2019 Office Visit Family Medicine Kate Brown MD [address] [place] [address] [place] [phone] Name Type Priority Associated Diagnoses Order Schedule US ABDOMINAL AORTA IMAGING Routine Screening for AAA Expected: 06/26/2019, SCREEN AAA (abdominal aortic Expires: 06/26/2020 aneurysm) Personal history of tobacco use CT LUNG CANCER IMAGING Routine Personal history of Expected: 06/26/2019, SCREENING tobacco use Expires: 06/26/2020 Encounter for screening for lung cancer DEXA AXIAL (HIP AND IMAGING Routine Osteoporosis screening Expected: 06/26/2019, SPINE) Postmenopausal state Expires: 06/26/2020 VITAMIN D, 25-OH LAB Routine Vitamin D deficiency 1 Occurrences starting 06/26/2019 until 08/25/2019 Health Maintenance Due Date Last Done Comments EYE EXAM 1955 DTaP,Tdap,and Td Vaccines (1 - 1966 Tdap) Zoster Recombinant Vaccine 1997 (SHINGRIX) (1 of 2) Osteoporosis Screening 2012 INFLUENZA VACCINE (#1) 2019 08/14/2018 LUNG CANCER SCREEN: Recommended 08/25/2019 08/25/2018 for age 55-80 with 30 + pack year history HgA1C 12/02/2019 06/01/2019, 03/21/2018, 05/16/2017, Additional history exists FOOT EXAM 2020 2019, 03/21/2018, 03/21/2018, Additional history exists CREATININE (SERUM) 06/01/2020 06/01/2019, 2019, 03/21/2018, Additional history exists LDL-C 06/01/2020 06/01/2019, 03/21/2018, 05/16/2017, Additional history exists URINE MICROALBUMIN 06/01/2020 06/01/2019, 03/21/2018, 05/16/2017 MAMMOGRAM 06/06/2020 06/06/2019, 03/30/2018, 12/15/2016 Medicare Wellness Visit 06/26/2020 06/26/2019 COLONOSCOPY 04/25/2028 04/25/2018, 10/17/2012 (Previously completed) PNEUMOCOCCAL VACCINES 65+ Completed 12/07/2016, 10/17/2012 HEPATITIS C (HCV) SCREEN Completed 03/21/2018, 03/21/2018 documented as of this encounter Goals Goal Patient Goal Associated Recent Patient-Stated? Author Type Problems Progress Quit using Tobacco Use No Kevin, tobacco Wondiful A, (cigarettes, MD smokeless, etc) documented as of this encounter Results Not on filedocumented in this encounter Visit Diagnoses Diagnosis Medicare annual wellness visit, initial - Primary Routine general medical examination at a health care facility Encounter for colorectal cancer screening Special screening for malignant neoplasms, colon History of colon polyps Personal history of colonic polyps Screening for AAA (abdominal aortic aneurysm) Screening for other and unspecified cardiovascular conditions Personal history of tobacco use Personal history of tobacco use, presenting hazards to health Encounter for screening for lung cancer Skin cancer screening Screening for malignant neoplasm of the skin Osteoporosis screening Special screening for osteoporosis Postmenopausal state Asymptomatic postmenopausal status (age-related) (natural) Vitamin D deficiency Unspecified vitamin D deficiency Elevated TSH Other abnormal blood chemistry Acquired hypothyroidism Unspecified hypothyroidism Medication monitoring encounter Encounter for therapeutic drug monitoring Hyperkalemia Hyperpotassemia documented in this encounter Insurance Payer Benefit Plan / Subscriber ID Effective Phone Address Type Group Dates MEDICARE MEDICARE PART A xxxxxxxxxxx 2012-Pres [phone] [address] Medicare & B ent [phone] [place] [phone] [facility] [id number] 2012-Pres [phone] Medicare [place] [employer]ITION[employer] ent [id number] [place] [address] documented as of this encounter
--- OUTSIDE RECORDS SUMMARY | 2019-08-27 00:58 | XMS REPORT | Summary of Care ---
:1945 Author Organization [facility] Address [address] [place] [address] Care Team Providers Name Role Phone Kate [...] AXIAL (HIP AND SPINE) Kate Hsu MD [address] [place] [address] [place] [address] (Routine) Status Reason Specialty Diagnoses / Referred By Referred To Procedures Contact Contact Authorized Patient is Dermatology Diagnoses Skin cancer screening Rosita Brown David Established with Procedures CONSULT/REFERRAL DERMATOLOGY Kate Hsu MD WMD a Specific [address] [place], [place] [address] [place] [phone] Phone: Fax: MRI/CAT Scan (Routine) Status Reason Specialty Diagnoses / Referred By Referred To Procedures Contact Contact New Request Diagnostic Diagnoses Personal history of tobacco use Encounter for screening for lung cancer [place], Radiology Procedures CT LUNG CANCER SCREENING Kate Hsu MD [address] [place] [address] [place] [phone] Radiology Services (Routine) Status Reason Specialty Diagnoses / Referred By Referred To Procedures Contact Contact New Request Diagnostic Diagnoses Screening for AAA (abdominal aortic aneurysm) Personal history of tobacco use [place], Radiology Procedures US ABDOMINAL AORTA SCREEN AAA Kate Hsu MD [address] [place] [address] [place] [address] (Routine) Status Reason Specialty Diagnoses / Procedures Referred By Referred To Contact Contact New Request Patient Diagnoses Encounter for colorectal cancer screening History of colon polyps Kwame Brown Nizam Requested Procedures CONSULT/REFERRAL GASTROENTEROLOGY Alfa Coats MD Specific [address] [place] [address] [place] [phone] Phone: Fax: Reason for Visit Reason Comments Medicare Annual Wellness LAB WORK Encounter Details Date Type Department Care Team Description 06/26/2019 Office Visit Replaced by [facility] Kate Brown Medicare annual wellness visit, initial (Primary Dx); Medicine - Harinder Hsu MD Encounter for colorectal cancer screening; [address] [place] [address] History of colon polyps; Drive [place], [place] Screening for AAA (abdominal aortic aneurysm); [place] [address] Personal history of tobacco use; [phone] Encounter for screening for lung cancer; [phone] Skin cancer screening; Osteoporosis screening; Postmenopausal state; [...] Overview: Added automatically from request for surgery [id number] Biliary dyskinesia 03/27/2018 Left groin pain 03/27/2018 Screening for colorectal cancer 03/24/2018 Overview: Added automatically from request for surgery [id number] Microscopic hematuria 09/05/2017 Elevated AST (SGOT) 05/20/2017 [...] and may affect the ovaries or testes. Rubella(Scottish measles) can cause defects if a woman catches it. Adults born in 1957 or later who are not known to be immune to all 3 of these diseases. Ask your healthcare provider ifyou need a second dose. This vaccine should notbe given to women. Women shouldavoid [id number] after vaccination. Pneumococcal (PCV 13) 1 dose [...] Program recommendations for adults Date Last Reviewed: 11/17/201619993992-7890 The [employer]: [place]. [address] [place] [address]. All rights reserved. This information is not [...] no complications. Specimens were sent processed to [facility] laboratories. Kate batres MD - 06/26/2019 1:00 [...] N/A 04/25/2018 Surgeon: Venkata Brower MD; Location: [facility] OR Location HYSTERECTOMY LAPAROSCOPIC CHOLECYSTECTOMY 05/04/2018 LAPAROSCOPIC CHOLECYSTECTOMY N/A 05/04/2018 Surgeon: Venkata Brower MD; Location: [facility] OR Location LAPAROSCOPIC INGUINAL HERNIORRHAPHY Left 05/04/2018 Surgeon: Venkata Brower MD; Location: [facility] OR Location POSTERIOR LUMBAR INTERBODY SPINAL FUSION [...] Next Due 06/01/2020 Done 06/01/2019 LIPID PANEL (84159)(TOTAL CHOLESTEROL, TRIGLYCERIDES, HDL) LDL CHOL Done 03/21/2018 LIPID PANEL (17006)(TOTAL CHOLESTEROL, TRIGLYCERIDES, HDL) LDL CHOL Patient has more history with this topic... CREATININE (SERUM) Next Due 06/01/2020 Done 06/01/2019 COMP. METABOLIC PANEL (11908) CREATININE Done 2019 BASIC METABOLIC PANEL (NA, [...] Visit Family Medicine Kate Brown MD [address] [place] [address] P[place]LIN [phone] Name Type Priority Associated [...] O. BOX Medicare & B ent [id number] [place] [id number] BCBS [facility] [id number] 2012-Pres [phone] O BOX Medicare [place] TRADITIONAL ent [id number] [place] [address] documented as of this encounter
--- OUTSIDE RECORDS SUMMARY | 2019-08-27 00:58 | XMS REPORT | Summary of Care ---
:1945 Author Organization [facility] Address [address] [place] [address] Care Team Providers Name Role Phone Kate [...] AXIAL (HIP AND SPINE) Kate Hsu MD [address] [place] [address] [place] [address] (Routine) Status Reason Specialty Diagnoses / Referred By Referred To Procedures Contact Contact Authorized Patient is Dermatology Diagnoses Skin cancer screening Rosita Brown David Established with Procedures CONSULT/REFERRAL DERMATOLOGY Kate Hsu MD WMD a Specific [address] [place], [place] [address] [place] [phone] Phone: Fax: MRI/CAT Scan (Routine) Status Reason Specialty Diagnoses / Referred By Referred To Procedures Contact Contact New Request Diagnostic Diagnoses Personal history of tobacco use Encounter for screening for lung cancer [place], Radiology Procedures CT LUNG CANCER SCREENING Kate Hsu MD [address] [place] [address] [place] [phone] Radiology Services (Routine) Status Reason Specialty Diagnoses / Referred By Referred To Procedures Contact Contact New Request Diagnostic Diagnoses Screening for AAA (abdominal aortic aneurysm) Personal history of tobacco use [place], Radiology Procedures US ABDOMINAL AORTA SCREEN AAA Kate Hsu MD [address] [place] [address] [place] [address] (Routine) Status Reason Specialty Diagnoses / Referred By Referred To Procedures Contact Contact Authorized Patient Gastroenterology Diagnoses Encounter for colorectal cancer screening History of colon polyps Kwame Brown Nizam Requested Procedures CONSULT/REFERRAL GASTROENTEROLOGY Alfa Coats MD Specific [address] [place] [address] [place] [phone] Phone: Fax: Reason for Visit Reason Comments Medicare Annual Wellness LAB WORK Encounter Details Date Type Department Care Team Description 06/26/2019 Office Visit [facility] Kate Brown Medicare annual wellness visit, initial (Primary Dx); Medicine - Harinder Hsu MD Encounter for colorectal cancer screening; [address] [place] [address] History of colon polyps; Drive [place], [place] Screening for AAA (abdominal aortic aneurysm); [place] [address] Personal history of tobacco use; [phone] Encounter for screening for lung cancer; [phone] Skin cancer screening; Osteoporosis screening; Postmenopausal state; [...] Overview: Added automatically from request for surgery [id number] Biliary dyskinesia 03/27/2018 Left groin pain 03/27/2018 Screening for colorectal cancer 03/24/2018 Overview: Added automatically from request for surgery [id number] Microscopic hematuria 09/05/2017 Elevated AST (SGOT) 05/20/2017 [...] and may affect the ovaries or testes. Rubella(Hebrew measles) can cause defects if a woman catches it. Adults born in 1957 or later who are not known to be immune to all 3 of these diseases. Ask your healthcare provider ifyou need a second dose. This vaccine should notbe given to women. Women shouldavoid [id number] after vaccination. Pneumococcal (PCV 13) 1 dose [...] Program recommendations for adults Date Last Reviewed: 11/17/201619995452-4284 The [employer]. [address] [place] [address]. All rights reserved. This information is not [...] no complications. Specimens were sent processed to [facility] laboratories. Kate batres MD - 06/26/2019 1:00 PM CDT CC: FIRST ANNUAL WELLNESS VISIT (AWV) ELVIS Burnham is a 74 year old female is here for her FIRST ANNUAL WELLNESS VISIT (AWV). Patient Care Team: Kate Brown MD as PCP - General (FM-FAMILY MEDICINE) Pinky Maxwell (IM-INTERNAL MEDICINE) Olman Cheung MD (OPH-OPHTHALMOLOGY) Rajinder Aguilera (IM-CARDIOVASCULAR DISEASE) Jaeml Angeles (ALEJANDRINA-VASCULAR SURGERY) Davion Suarez (ORT-ORTHOPAEDIC SURGERY) [...] N/A 04/25/2018 Surgeon: Venkata Brower MD; Location: [facility] OR Location HYSTERECTOMY LAPAROSCOPIC CHOLECYSTECTOMY 05/04/2018 LAPAROSCOPIC CHOLECYSTECTOMY N/A 05/04/2018 Surgeon: Venkata Brower MD; Location: [facility] OR Location LAPAROSCOPIC INGUINAL HERNIORRHAPHY Left 05/04/2018 Surgeon: Venkata Brower MD; Location: [facility] OR Location POSTERIOR LUMBAR INTERBODY SPINAL FUSION [...] Next Due 06/01/2020 Done 06/01/2019 LIPID PANEL (87642)(TOTAL CHOLESTEROL, TRIGLYCERIDES, HDL) LDL CHOL Done 03/21/2018 LIPID PANEL (44151)(TOTAL CHOLESTEROL, TRIGLYCERIDES, HDL) LDL CHOL Patient has more history with this topic... CREATININE (SERUM) Next Due 06/01/2020 Done 06/01/2019 COMP. METABOLIC PANEL (06923) CREATININE Done 2019 BASIC METABOLIC PANEL (NA, [...] Office Visit Family Medicine Kate Brown MD [address] [place] [address] [place] [phone] Name Type Priority Associated [...] Problems Progress Quit using Tobacco Use No [place], tobacco Wondiful A, (cigarettes, MD smokeless, etc) [...] O. BOX Medicare & B ent [id number] [place] [phone] BCBS [facility] [id number] 2012-Pres [phone] O BOX Medicare [place] TRADITIONAL ent [id number] [place] [address] documented as of this encounter
--- OUTSIDE RECORDS SUMMARY | 2019-08-27 00:58 | XMS REPORT | Summary of Care ---
:1945 Author Organization [facility] Address [address] [place] [address] Care Team Providers Name Role Phone Kate [...] AXIAL (HIP AND SPINE) Kate Hsu MD [address] [place] [address] [place] [address] (Routine) Status Reason Specialty Diagnoses / Referred By Referred To Procedures Contact Contact Authorized Patient is Dermatology Diagnoses Skin cancer screening Rosita Brown David Established with Procedures CONSULT/REFERRAL DERMATOLOGY Kate Hsu MD WMD a Specific [address] [place], [place] [address] [place] [phone] Phone: Fax: MRI/CAT Scan (Routine) Status Reason Specialty Diagnoses / Referred By Referred To Procedures Contact Contact New Request Diagnostic Diagnoses Personal history of tobacco use Encounter for screening for lung cancer [place], Radiology Procedures CT LUNG CANCER SCREENING Kate Hsu MD [address] [place] [address] [place] [phone] Radiology Services (Routine) Status Reason Specialty Diagnoses / Referred By Referred To Procedures Contact Contact New Request Diagnostic Diagnoses Screening for AAA (abdominal aortic aneurysm) Personal history of tobacco use [place], Radiology Procedures US ABDOMINAL AORTA SCREEN AAA Kate Hsu MD [address] [place] [address] [place] [address] (Routine) Status Reason Specialty Diagnoses / Procedures Referred By Referred To Contact Contact New Request Patient Diagnoses Encounter for colorectal cancer screening History of colon polyps Kwame Brown Nizam Requested Procedures CONSULT/REFERRAL GASTROENTEROLOGY Alfa Coats MD Specific [address] [place] [address] [place] [phone] Phone: Fax: Reason for Visit Reason Comments Medicare Annual Wellness LAB WORK Encounter Details Date Type Department Care Team Description 06/26/2019 Office Visit [facility] Kate Brown Medicare annual wellness visit, initial (Primary Dx); Medicine - Hairnder Hsu MD Encounter for colorectal cancer screening; [address] [place] [address] History of colon polyps; Drive [place], [place] Screening for AAA (abdominal aortic aneurysm); [place] [address] Personal history of tobacco use; [address] Encounter for screening for lung cancer; [phone] Skin cancer screening; Osteoporosis screening; Postmenopausal state; [...] Overview: Added automatically from request for surgery [id number] Biliary dyskinesia 03/27/2018 Left groin pain 03/27/2018 Screening for colorectal cancer 03/24/2018 Overview: Added automatically from request for surgery [id number] Microscopic hematuria 09/05/2017 Elevated AST (SGOT) 05/20/2017 [...] and may affect the ovaries or testes. Rubella([place]cuadorean measles) can cause defects if a woman catches it. Adults born in 1957 or later who are not known to be immune to all 3 of these diseases. Ask your healthcare provider ifyou need a second dose. This vaccine should notbe given to women. Women shouldavoid [id number] after vaccination. Pneumococcal (PCV 13) 1 dose [...] Program recommendations for adults Date Last Reviewed: 11/17/201619995952-5580 [employer]. [address] [place] [address]. All rights reserved. This information is not [...] no complications. Specimens were sent processed to [facility] laboratories. Kate batres MD - 06/26/2019 [...] N/A 04/25/2018 Surgeon: Venkata Brower MD; Location: [facility] OR Location HYSTERECTOMY LAPAROSCOPIC CHOLECYSTECTOMY 05/04/2018 LAPAROSCOPIC CHOLECYSTECTOMY N/A 05/04/2018 Surgeon: Venkata Brower MD; Location: [facility] OR Location LAPAROSCOPIC INGUINAL HERNIORRHAPHY Left 05/04/2018 Surgeon: Venkata Brower MD; Location: [facility] OR Location POSTERIOR LUMBAR INTERBODY SPINAL [...] Next Due 06/01/2020 Done 06/01/2019 LIPID PANEL (50742)(TOTAL CHOLESTEROL, TRIGLYCERIDES, HDL) LDL CHOL Done 03/21/2018 LIPID PANEL (96248)(TOTAL CHOLESTEROL, TRIGLYCERIDES, HDL) LDL CHOL Patient has more history with this topic... CREATININE (SERUM) Next Due 06/01/2020 Done 06/01/2019 COMP. METABOLIC PANEL (26267) CREATININE Done 2019 BASIC METABOLIC PANEL (NA, [...] Office Visit Family Medicine Kate Brown MD [address] [place] [address] [place] [phone] Name Type Priority Associated [...] O. BOX Medicare & B ent [id number] [place] [id number] BCBS [facility] [id number] 2012-Pres [phone] O BOX Medicare [place] TRADITIONAL ent [id number] [place] [address] documented as of this encounter
--- OUTSIDE RECORDS SUMMARY | 2019-08-27 00:59 | XMS REPORT | Summary of Care ---
:1945 Author Organization [facility] Address [address] [place] [address] Care Team Providers Name Role Phone Kate Brown MD Primary Care Provider Pinky Maxwell Unavailable Olman Cheung MD Unavailable Rajinder Aguilera Unavailable Jamel [place] Unavailable Unavailable Davion Suarez Unavailable Catherine Fields DO Unavailable Aleah Torres MD Unavailable Reason for Visit Reason Comments Refill Request Encounter Details Date Type Department Care Team Description 06/28/2019 Telephone [facility] Family Kate Brown MD Refill Request Medicine - [address] [phone] [place] [address] Allergies Active Allergy Reactions Severity Noted Date Comments Codeine Other - See comments 12/07/2016 Levofloxacin Palpitations 12/07/2016 Sulfamethoxazole Shortness of Breath 12/07/2016 documented as of this encounter (statuses as of 07/02/2019) Medications Medication Sig Dispensed Refills Start Date [...] by mouth 2 anticoagulation (two) times daily. CARTIA XT 180 mg 24 hr TAKE 1 CAPSULE 90 capsule 1 06/22/2019 Active capsuleIndications: BY MOUTH DAILY Essential hypertension lovastatin 20 mg Take 1 tablet 90 tablet 1 06/22/2019 Active tabletIndications: by mouth Hypercholesterolemia daily. losartan 100 mg Take 1 tablet 90 tablet 1 06/26/2019 Active tabletIndications: by mouth Essential hypertension daily. hydroCHLOROthiazide 12.5 Take 1 tablet 90 tablet 1 06/26/2019 Active mg tabletIndications: by mouth Essential hypertension daily. traZODone 150 mg Take 1 tablet 90 tablet 1 07/02/2019 Active tabletIndications: Chronic by mouth at insomnia bedtime. 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 Pulmonary nodule 08/30/2018 Overview: 08/25/2018 CT: Right, 2mm Recurrent left inguinal hernia 03/28/2018 Overview: Added automatically from request for surgery [id number] Biliary dyskinesia 03/27/2018 Left groin pain 03/27/2018 Screening for colorectal cancer 03/24/2018 Overview: Added automatically from request for surgery [id number] Microscopic hematuria 09/05/2017 Elevated AST (SGOT) 05/20/2017 Vitamin D deficiency 12/07/2016 Acquired hypothyroidism 12/07/2016 Mixed hyperlipidemia 12/07/2016 Diabetes type 2, controlled 12/07/2016 Chronic insomnia 12/07/2016 Essential hypertension 12/07/2016 COPD (chronic obstructive pulmonary disease) 12/07/2016 documented as of this encounter (statuses as of 07/02/2019) Immunizations Name Administration Dates Next Due Influenza [...] Treatment Date Type Specialty Care Team Description 07/04/2019 Appointment Radiology Kate Brown MD [address] [place] [address] [place] [phone] 07/04/2019 Appointment Radiology Kate Brown MD [address] [place] [address] [place] [address] 11/26/2019 Office Visit Family Medicine Kate Brown MD [address] [place] [address] [place] [address] Health Maintenance Due Date Last Done [...] Use No Kevin, tobacco Wondiful A, (cigarettes, smokeless, etc) documented as of this encounter Results Not on filedocumented in this encounter Visit Diagnoses Diagnosis Chronic insomnia - Primary Insomnia, unspecified documented in this encounter Insurance Payer Benefit Plan / Subscriber ID Effective Phone Address Type Group Dates MEDICARE MEDICARE PART A xxxxxxxxxxx 2012-Pres [phone] Medicare & B ent [id number] [place] [phone] BCBS [facility] [id number] 2012-Pres [phone] [address] Medicare [place] TRADITIONAL ent [id number] [place] [address] documented as of this encounter
--- OUTSIDE RECORDS SUMMARY | 2019-08-27 00:59 | XMS REPORT | Summary of Care ---
:1945 Author Organization [facility] Address [address] [place] [address] Care Team Providers Name Role Phone Kate Brown MD Primary Care Provider Pinky Maxwell Unavailable Olman Cheung MD Unavailable Rajinder Aguilera Unavailable Jamel Angeles Unavailable Unavailable Davion Suarez Unavailable Catherine Fields DO Unavailable Aleah Torres MD Unavailable Reason for Referral Radiology Services (Routine) Status Reason Specialty Diagnoses / Referred By Referred To Procedures Contact Contact Authorized Diagnostic Diagnoses Osteoporosis screening Postmenopausal state Osteoporosis screening Postmenopausal state Kevin, Radiology Procedures DEXA AXIAL (HIP AND SPINE) CHG DEXA,BONE DENSITY, 1 + SITE, AXIAL SKELETON DEXA AXIAL (HIP AND SPINE) Kate Hsu MD [address] [place] [address] [place] [phone] (Routine) Status Reason Specialty Diagnoses / Referred By Referred To Procedures Contact Contact Authorized Patient is Dermatology Diagnoses Skin cancer screening Rosita Brown David Established with Procedures CONSULT/REFERRAL DERMATOLOGY MD Luis Antonio Coats MD a Specific [address] [place] [address] [place] [phone] Phone: Fax: MRI/CAT Scan (Routine) Status Reason Specialty Diagnoses / Referred By Referred To Procedures Contact Contact New Request Diagnostic Diagnoses Personal history of tobacco use Encounter for screening for lung cancer Kevin, Radiology Procedures CT LUNG CANCER SCREENING Kate Hsu MD [address] [place] [address] [place] [address] Radiology Services (Routine) Status Reason Specialty Diagnoses / Referred By Referred To Procedures Contact Contact Authorized Diagnostic Diagnoses Screening for AAA (abdominal aortic aneurysm) Personal history of tobacco use Screening for AAA (abdominal aortic aneurysm) Personal history of tobacco use Kevin, Radiology Procedures US ABDOMINAL AORTA SCREEN AAA CHG US ABDOMINAL AORTA REAL TIME SCREEN STUDY AAA US ABDOMINAL AORTA SCREEN AAA Kate Hsu MD [address] [place] [address] [place] [address] (Routine) Status Reason Specialty Diagnoses / Referred By Referred To Procedures Contact Contact Authorized Patient Gastroenterology Diagnoses Encounter for colorectal cancer screening History of colon polyps Kwame Brown Nizam Requested Procedures CONSULT/REFERRAL GASTROENTEROLOGY Alfa Coats MD Specific [address] [place] [address] [place] [phone] Phone: Fax: Reason for Visit Reason Comments Medicare Annual Wellness LAB WORK Encounter Details Date Type Department Care Team Description 06/26/2019 Office Visit [facility] Kate Brown Medicare annual wellness visit, initial (Primary Dx); Medicine - Harinder Hsu MD Encounter for colorectal cancer screening; [address] [place] [address] History of colon polyps; Drive [place], [place] Screening for AAA (abdominal aortic aneurysm); [place] [address] Personal history of tobacco use; [phone] Encounter for screening for lung cancer; [phone] Skin cancer screening; Osteoporosis screening; Postmenopausal state; Vitamin D deficiency; Elevated TSH; Acquired hypothyroidism; Medication monitoring encounter; Hyperkalemia Allergies Active Allergy Reactions Severity Noted Date Comments Codeine Other - See comments 12/07/2016 Levofloxacin Palpitations 12/07/2016 Sulfamethoxazole Shortness of Breath 12/07/2016 documented as of this encounter (statuses as of 07/02/2019) Medications Medication Sig Dispensed Refills Start End [...] 2 9 Chronic anticoagulation (two) times daily. CARTIA XT 180 mg 24 hr TAKE 1 90 capsule 1 Active capsuleIndications: CAPSULE BY 9 Essential hypertension MOUTH DAILY lovastatin 20 mg Take 1 tablet 90 tablet 1 Active tabletIndications: by mouth 9 Hypercholesterolemia daily. 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 Rubella(Guyanese measles) can cause defects if a woman catches it. Adults born in 1957 or later who are not known to be immune to all 3 of these diseases. Ask your healthcare provider ifyou need a second dose. This vaccine should notbe given to women. Women shouldavoid [id number] after vaccination. Pneumococcal (PCV 13) 1 dose [...] Program recommendations for adults Date Last Reviewed: 11/17/201619999158-5856 [employer] [address] [place] [address]. All rights reserved. This information is not [...] no complications. Specimens were sent processed to [facility] laboratories. Kate batres MD - 06/26/2019 [...] Next Due 06/01/2020 Done 06/01/2019 LIPID PANEL (18478)(TOTAL CHOLESTEROL, TRIGLYCERIDES, HDL) LDL CHOL Done 03/21/2018 LIPID PANEL (58967)(TOTAL CHOLESTEROL, TRIGLYCERIDES, HDL) LDL CHOL Patient has more history with this topic... CREATININE (SERUM) Next Due 06/01/2020 Done 06/01/2019 COMP. METABOLIC PANEL (91302) CREATININE Done 2019 BASIC METABOLIC PANEL (NA, [...] Description 07/04/2019 Appointment Radiology Kate Brown MD [address] [place] [address] [place] [phone] 07/04/2019 Appointment Radiology Kate Brown MD [address] [place] [address] [place] [phone] 11/26/2019 Office Visit Family Medicine Kate Brown MD [address] [place] [address] [place] [address] Name Type Priority Associated Diagnoses Order [...] Expected: 06/26/2019, SPINE) Postmenopausal state Expires: 06/26/2020 Health Maintenance Due Date Last Done Comments [...] Problems Progress Quit using Tobacco Use No [place], tobacco Wondiful A, (cigarettes, MD smokeless, etc) documented as of this encounter Procedures Procedure Name Priority Date/Time Associated Diagnosis Comments VITAMIN D, 25-OH Routine 06/26/2019 2:07 Vitamin D deficiency Results for this PM CDT procedure are in the results section. THYROID STIMULATING Routine 06/26/2019 2:07 Elevated TSH Results for this HORMONE PM CDT Acquired procedure are in hypothyroidism the results Medication monitoring section. encounter POTASSIUM SERUM Routine 06/26/2019 2:07 Hyperkalemia Results for this PM CDT procedure are in the results section. documented in this encounter Results POTASSIUM SERUM (06/26/2019 2:07 PM CDT) K 5.0 3.5 - 5.0 mmol/L [facility] Specimen Blood - ARM, LEFT Performing Organization Address City/[facility] Phone Number [facility] CLIA: [id number], [address] [place] [address] THYROID STIMULATING HORMONE (06/26/2019 2:07 PM CDT) TSH 2.93 0.45 - 4.70 mIU/L [facility] Specimen Blood - ARM, LEFT Performing Organization Address City/State/Zipcode Phone Number [facility] CLIA: [id number], [address] [place] [address] VITAMIN D, 25-OH (06/26/2019 2:07 PM CDT) VIT D 25OH 52 25 - 80 ng/mL [facility] 25-Hydroxy D3 52.0 ng/mL [facility] 25-Hydroxy D2 <2.5 ng/mL [facility] Specimen Blood - ARM, LEFT Narrative Performed At Test developed and characteristics determined by [facility] Laboratory Services. Performing Organization Address City/State/Zipcode Phone Number [facility] CLIA: [id number], [address] [place] [address] [facility] documented in this encounter Visit Diagnoses Diagnosis Medicare [...] O. BOX Medicare & B ent [id number] [place] [phone] BCBS OF BCBS [id number] 2012-Pres [phone] Medicare [place] TRADITIONAL ent [phone] [place] [address] documented as of this encounter
--- OUTSIDE RECORDS SUMMARY | 2019-08-27 00:59 | XMS REPORT | Summary of Care ---
:1945 [address] [facility] Address [address] [place] [address] Care Team Providers Name Role Phone Kate Brown MD Primary Care Provider Pinky Maxwell Unavailable Olman Cheung MD Unavailable Rajinder Aguilera Unavailable Jamel Angeles Unavailable Unavailable Davion Suarez Unavailable Catherine Fields DO Unavailable Aleah Torres MD Unavailable Reason for Visit Reason Comments Rx Concern/Question Encounter Details Date Type Department Care Team Description 06/26/2019 Telephone [facility] Family Kate Brown, Rx Concern/ Question Medicine - Harinder MOHR [address] [place] [address] [place] [address] [place], [place] [phone] Allergies Active Allergy Reactions Severity Noted Date Comments Codeine Other - See comments 12/07/2016 Levofloxacin Palpitations 12/07/2016 Sulfamethoxazole Shortness of Breath 12/07/2016 documented as of this encounter (statuses as of 06/27/2019) Medications Medication Sig Dispensed Refills Start End [...] Active tabletIndications: by mouth 9 Hypercholesterolemia daily. losartan 100 mg Take 1 tablet 90 tablet 1 Active tabletIndications: by mouth 9 Essential hypertension daily. hydroCHLOROthiazide 12.5 Take 1 tablet 90 tablet 1 Active mg tabletIndications: by mouth 9 Essential hypertension daily. 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 Pulmonary nodule 08/30/2018 Overview: 08/25/2018 CT: Right, 2mm Recurrent left inguinal hernia 03/28/2018 Overview: Added automatically from request for surgery [id number] Biliary dyskinesia 03/27/2018 Left groin pain 03/27/2018 Screening for colorectal cancer 03/24/2018 Overview: Added automatically from request for surgery [id number] Microscopic hematuria 09/05/2017 Elevated AST (SGOT) 05/20/2017 Vitamin D deficiency 12/07/2016 Acquired hypothyroidism 12/07/2016 Mixed hyperlipidemia 12/07/2016 Diabetes type 2, controlled 12/07/2016 Chronic insomnia 12/07/2016 Essential hypertension 12/07/2016 COPD (chronic obstructive pulmonary disease) 12/07/2016 documented as of this encounter (statuses as of 06/27/2019) Immunizations Name Administration Dates Next Due Influenza [...] Description 07/04/2019 Appointment Radiology Kate Brown MD [address] [place] [address] [place] [phone] 07/04/2019 Appointment Radiology Kate Brown MD [address] [place] [address] [place] [phone] 11/26/2019 Office Visit Family Medicine Kate Brown MD [address] [place] [address] [place] [phone] Health Maintenance Due Date Last Done [...] Quit using Tobacco Use No Kevin, tobacco Ritaful A, (cigarettes, MD smokeless, etc) documented as of this encounter Results Not on filedocumented in this encounter Visit Diagnoses Diagnosis Essential hypertension - Primary Unspecified essential hypertension documented in this encounter Insurance Payer Benefit Plan / Subscriber ID Effective Phone Address Type Group Dates MEDICARE MEDICARE PART A xxxxxxxxxxx 2012-Pres [phone] [address] Medicare & B ent [id number] [place] [phone] BCBS OF BCBS [id number] 2012-Pres [phone] Medicare [place] TRADITIONAL ent [phone] [place] [address] documented as of this encounter
--- OUTSIDE RECORDS SUMMARY | 2019-08-27 00:59 | XMS REPORT | Summary of Care ---
:1945 Author Organization [facility] Address [address] [place] [address] Care Team Providers Name Role Phone Kate [...] AXIAL (HIP AND SPINE) Kate Hsu MD [address] [place] [address] [place] [address] (Routine) Status Reason Specialty Diagnoses / Referred By Referred To Procedures Contact Contact Authorized Patient is Dermatology Diagnoses Skin cancer screening Rosita Brown David Established with Procedures CONSULT/REFERRAL DERMATOLOGY Kate Hsu MD WMD a Specific [address] [place], [place] [address] [place] [phone] Phone: Fax: MRI/CAT Scan (Routine) Status Reason Specialty Diagnoses / Referred By Referred To Procedures Contact Contact New Request Diagnostic Diagnoses Personal history of tobacco use Encounter for screening for lung cancer [place], Radiology Procedures CT LUNG CANCER SCREENING Kate Hsu MD [address] [place] [address] [place] [phone] Radiology Services (Routine) Status Reason Specialty Diagnoses / Referred By Referred To Procedures Contact Contact New Request Diagnostic Diagnoses Screening for AAA (abdominal aortic aneurysm) Personal history of tobacco use [place], Radiology Procedures US ABDOMINAL AORTA SCREEN AAA Kate Hsu MD [address] [place] [address] [place] [address] (Routine) Status Reason Specialty Diagnoses / Referred By Referred To Procedures Contact Contact Authorized Patient Gastroenterology Diagnoses Encounter for colorectal cancer screening History of colon polyps Kwame Brown Nizam Requested Procedures CONSULT/REFERRAL GASTROENTEROLOGY Alfa Coats MD Specific [address] [place] [address] [place] [phone] Phone: Fax: Reason for Visit Reason Comments Medicare Annual Wellness LAB WORK Encounter Details Date Type Department Care Team Description 06/26/2019 Office Visit [facility] Kate Brown Medicare annual wellness visit, initial (Primary Dx); Medicine - Harinder Hsu MD Encounter for colorectal cancer screening; [address] [place] [address] History of colon polyps; Drive [place], [place] Screening for AAA (abdominal aortic aneurysm); [place] [address] Personal history of tobacco use; [phone] Encounter for screening for lung cancer; [phone] Skin cancer screening; Osteoporosis screening; Postmenopausal state; [...] Overview: Added automatically from request for surgery [id number] Biliary dyskinesia 03/27/2018 Left groin pain 03/27/2018 Screening for colorectal cancer 03/24/2018 Overview: Added automatically from request for surgery [id number] Microscopic hematuria 09/05/2017 Elevated AST (SGOT) 05/20/2017 [...] and may affect the ovaries or testes. Rubella(Kinyarwanda measles) can cause defects if a woman catches it. Adults born in 1957 or later who are not known to be immune to all 3 of these diseases. Ask your healthcare provider ifyou need a second dose. This vaccine should notbe given to women. Women shouldavoid [id number] after vaccination. Pneumococcal (PCV 13) 1 dose [...] Program recommendations for adults Date Last Reviewed: 11/17/201619995524-8303 [employer]. [address] [place] [address]. All rights reserved. This information is not [...] complications. Specimens were sent processed to [facility] laboratories. Kate batres MD - 06/26/2019 1:00 [...] SURGERY) Catherine Fields DO (IM-PULMONARY DISEASE) Aleah oTrres MD (KATHI-OTOLARYNGOLOGY) List additional current known providers [...] N/A 04/25/2018 Surgeon: Venkata Brower MD; Location: [facility] OR Location HYSTERECTOMY LAPAROSCOPIC CHOLECYSTECTOMY 05/04/2018 LAPAROSCOPIC CHOLECYSTECTOMY N/A 05/04/2018 Surgeon: Venkata Brower MD; Location: [facility] OR Location LAPAROSCOPIC INGUINAL HERNIORRHAPHY Left 05/04/2018 Surgeon: Venkata Brower MD; Location: [facility] OR Location POSTERIOR LUMBAR INTERBODY SPINAL [...] Next Due 06/01/2020 Done 06/01/2019 LIPID PANEL (48470)(TOTAL CHOLESTEROL, TRIGLYCERIDES, HDL) LDL CHOL Done 03/21/2018 LIPID PANEL (67634)(TOTAL CHOLESTEROL, TRIGLYCERIDES, HDL) LDL CHOL Patient has more history with this topic... CREATININE (SERUM) Next Due 06/01/2020 Done 06/01/2019 COMP. METABOLIC PANEL (89224) CREATININE Done 2019 BASIC METABOLIC PANEL (NA, [...] Description 07/04/2019 Appointment Radiology Kate Brown MD [address] [place] [address] [place] [phone] 07/04/2019 Appointment Radiology Kate Brown MD [address] [place] [address] [place] [phone] 11/26/2019 Office Visit Family Medicine Kate Brown MD [address] [place] [address] [place] [phone] Name Type Priority Associated Diagnoses Date/Time VITAMIN D, 25-OH LAB Routine Vitamin D deficiency 06/26/2019 2:07 PM CDT Name Type Priority Associated Diagnoses Order Schedule [...] Problems Progress Quit using Tobacco Use No [place], tobacco Kate A, (cigarettes, MD smokeless, etc) documented as of this encounter Procedures Procedure Name Priority Date/Time Associated Diagnosis Comments THYROID STIMULATING Routine 06/26/2019 2:07 Elevated TSH Results for this HORMONE PM CDT Acquired procedure are in hypothyroidism the results Medication monitoring section. encounter POTASSIUM SERUM Routine 06/26/2019 2:07 Hyperkalemia Results for this PM CDT procedure are in the results section. documented in this encounter Results POTASSIUM SERUM (06/26/2019 2:07 PM CDT) K 5.0 3.5 - 5.0 mmol/L [facility] Specimen Blood - ARM, LEFT Performing Organization Address [facility] Phone Number [facility] CLIA: [id number], [address] [place], [place] [id number] [address] THYROID STIMULATING HORMONE (06/26/2019 2:07 PM CDT) TSH 2.93 0.45 - 4.70 mIU/L [facility] Specimen Blood - ARM, LEFT Performing Organization Address City/[facility] Phone Number [facility] CLIA: [id number], [address] [place] [address] documented in this encounter Visit Diagnoses Diagnosis [...] O. BOX Medicare & B ent [id number] [place] [phone] [facility] [id number] 2012-[facility] [phone] Medicare [place] TRADITION[place] ent [phone] [id number] [place] [address] documented as of this encounter
== END 2019-08-24 11:40 | disposition home health service (06) | DRG 190 ==
LOC: ER 11:31 → ERHOLD 15:48 → 4TH 17:01 → ERHOLD 17:03 → 2ND 17:46
PROVIDERS: ADMIT Family Medicine; ATTEND Family Medicine
DX: J44.0 Chronic obstructive pulmonary disease with (acute) lower respiratory infection (principal); J18.9 Pneumonia, unspecified organism; N17.9 Acute kidney failure, unspecified; J44.1 Chronic obstructive pulmonary disease with (acute) exacerbation; E83.42 Hypomagnesemia; E87.6 Hypokalemia; I10 Essential (primary) hypertension; E11.9 Type 2 diabetes mellitus without complications; E03.9 Hypothyroidism, unspecified; E78.5 Hyperlipidemia, unspecified; I73.9 Peripheral vascular disease, unspecified; Z86.718 Personal history of other venous thrombosis and embolism; Z79.01 Long term (current) use of anticoagulants; Z87.891 Personal history of nicotine dependence; R19.7 Diarrhea, unspecified; R09.02 Hypoxemia; F32.9 Major depressive disorder, single episode, unspecified; Z88.2 Allergy status to sulfonamides
CPT/HCPCS: 36415; 71046; 80048; 80076; 81003; 81015; 82947; 83605; 83735; 83880; 84145; 84439; 84443; 84484; 85025; 85610; 87040; 87086; 87088; 87804; 93005; 93306; 96361; 96374; 96375; 97116; 97161; 99285; J0456; J0696; J2930; J3475; J7030; J7040; J7512; J7605

== ENCOUNTER 2021-10-13 12:39 | Emergency (ER) | payer OTHER, BC ==
--- OUTSIDE RECORDS SUMMARY | 2021-10-13 12:44 | XMS REPORT | Continuity of Care Document ---
:1945 Author Organization [facility] t Address [address] [place] [place] [address] Care Team Providers Name Role Phone Kevin MOHR, Gerson Primary Care Physician ERYN Attending Clinician Unavailable Gerson Brown MD Attending Clinician Eryn MOHR Attending Clinician Hans RN, B Attending Clinician Unavailable CANDY Attending Clinician Unavailable Kaleb MORA, D Attending Clinician Unavailable Brady MOHR Attending Clinician CANDY Admitting Clinician Unavailable Payers Payer Name Policy Type Policy Number Effective Date Expiration Date S ource MEDICARE PART A \T\ [id number] 2012 B 00:00:00 [employer] TRADITIONAL [id number] 2012 00:00:00 Problems Condition Condition Condition Status Onset Resolution Last Treating Co mments Source Name Details Category Date Date Treatment Clinician Date Atrial Atrial Disease Active 2020-10 Univers flutter flutter 2-22 ity of 00:00: [address] Branch Chest pain Chest pain Disease Active 2020-10 U nivers 2-22 ity of 00:00: [address] Branch Obesity Obesity Disease Active 2020-10 Univers 2-22 ity of 00:00: [place] [address] Medical Branch Lumbar Lumbar Disease Active 2020-10 Univers spinal spinal 0-20 ity of stenosis stenosis 00:00: [address] Branch Chronic Chronic Disease Active 2020-10 Univers bilateral bilateral 0-11 ity of low back low back 00:00: [place] pain with pain with 00 Medi diana sciatica sciatica Branch Chronic Chronic Disease Active Univers diarrhea diarrhea 8-16 ity of 00:00: [place] [facility] Esophageal Esophageal Disease Active U nivers reflux reflux 8-16 ity of 00:00: 00 Medical Branch Neuropathy Neuropathy Disease Active 2019-10 U nivers of both of both 2-19 ity of feet feet 00:00: Medical Branch Hepatic Hepatic Disease Active 2019-10 Overview: Univ ers steatosis steatosis 2-03 Formattin i ty of 00:00: g of this note Medical might be Branch different from the original. Added automatic ally from request for surgery [id number] Diarrhea Diarrhea Disease Active 2019-10 Unive rs 0-22 ity of 00:00: [place] [facility] Liver Liver Disease Active Univers hemangioma hemangioma 9-16 it y of 00:00: Medical Branch History of History of Disease Active U nivers depression depression 8-19 it y of 00:00: [place] 00 Medical Branch Pulmonary Pulmonary Disease Active Uni vers nodules nodules 1-29 ity of 00:00: [place] [facility] PAD PAD Disease Active Univers (periphera (periphera 5-20 it y of l artery l artery 00:00: [place] disease) disease) 00 Medica l Branch Coumadin Coumadin Disease Active Unive rs resistance resistance 5-20 it y of 00:00: [place] [facility] Pulmonary Pulmonary Disease Active 2017-10 Overview: Univers nodule nodule 1-14 [facility] ity of 00:00: g of this note Medical might be Branch different from the original. 08/25/2018 CT: Right, 2mm Recurrent Recurrent Disease Active Overview: Univers left left 6-12 Formattin ity of inguinal inguinal 00:00: g of this [place] as hernia hernia 00 note Medical might be Branch different from the original. Added automatic ally from request for surgery [id number] Biliary Biliary Disease Active Univers dyskinesia dyskinesia 6-11 it y of 00:00: [place] 00 Medical Branch Left groin Left groin Disease Active U nivers pain pain 6-11 ity of 00:00: [place] 00 Medical Branch Screening Screening Disease Active Overview: Univers for for 6-08 Formattin ity of colorectal colorectal 00:00: g of this [place] cancer cancer 00 note Medical might be Branch different from the original. Added automatic ally from request for surgery [id number] Microscopi Microscopi Disease Active 2016-10 U nivers c c 1-20 ity of hematuria hematuria 00:00[place] [facility] [place] Elevated Elevated Disease Active Unive rs AST (SGOT) AST (SGOT) 8-04 it y of 00:00: Medical Branch Vitamin D Vitamin D Disease Active Uni vers deficiency deficiency 2-21 it y of 00:00: Medical Branch Acquired Acquired Disease Active Unive rs hypothyroi hypothyroi 2-21 it y of dism dism 00:00: Medical Branch Mixed Mixed Disease Active Univers hyperlipid hyperlipid 2-21 it y of emia emia 00:00: Medical Branch Type 2 Type 2 Disease Active Univers diabetes diabetes 2-21 ity of mellitus mellitus 00:00: Medical Branch Chronic Chronic Disease Active Univers insomnia insomnia 2-21 ity of 00:00: Medical Branch Essential Essential Disease Active Uni vers hypertensi hypertensi 2-21 it y of on on 00:00: Medical Branch COPD COPD Disease Active Univers (chronic (chronic 2-21 ity of obstructiv obstructiv 00:00: [place] 00 Medical pulmonary pulmonary Bran ch disease) disease) DVT (deep DVT (deep Disease Active Uni vers venous venous [place] of thrombosis thrombosis [place] ) ) Medical Branch Allergies, Adverse Reactions, Alerts Allergy Allergy Status Severity Reaction(s) Onset Inactive Treating Comm ents Source Name Type Date Date Clinician CODEINE DRUG Active Other-Cmnt Unive rs INGREDI 2-21 ity of 00:00: [place] 00 Medical Branch LEVOFLOX DRUG Active Palpitations Un kim ACIN INGREDI 2-21 ity of 00:00: [place] 00 Medical Branch SULFAMET DRUG Active SOB Univers HOXAZOLE INGREDI 2-21 ity of 00:00: 00 Medical Branch Codeine Propensi Active Other - See Un kim ty to comments 2-21 ity of adverse 00:00: [place] reaction 00 Medical s Branch Levoflox Propensi Active Palpitations 2017- Univers acin ty to 2-21 ity of adverse 00:00: [place] reaction Medical s Branch Sulfamet Propensi Active Shortness of 2017-0 Univers hoxazole ty to Breath 2-21 ity of adverse 00:00: [place] reaction 00 Medical s Branch Social History Social Habit Start Date Stop Date Quantity Comments Source Exposure to Not sure [facility] SARS-CoV-2 (event) [facility] Education 2021-10-07 2021-10-07 12 [facility] 00:00:00 00:00:00 [facility] Alcohol intake 2021-10-07 2021-10-07 .29 /d [place] of 00:00:00 00:00:00 [place] [facility] History SDOH 2020-08-07 2020-08-07 5 University o f [facility] 2020-08-07 2020-08-07 2 University o f Alcohol Std Drinks 00:00:00 00:00:00 [place] [facility] History SDOH 2020-08-07 2020-08-07 99 University o f Alcohol Binge 00:00:00 00:00:00 [facility] al Branch Alcohol Comment 2020-08-07 2020-08-07 MV 08/07/2020 Univer sity of 00:00:00 00:00:00 drinks 2 glasses [place] Me dical of wine nightly. Branch Previously drank 3+ [facility] [place] drinks nightly >10years. Cigarettes smoked 2019-06-01 2019-06-01 Univers ity of current (pack per 00:00:00 00:00:00 [facility] ) - Reported Branch Cigarette 2019-06-01 2019-06-01 University of pack-years 00:00:00 00:00:00 [facility] Tobacco use and 2019-06-01 2019-06-01 Never used Universit y of exposure 00:00:00 00:00:00 [facility] Tobacco Comment 2019-06-01 2019-06-01 Quit smoking Univers ity of 00:00:00 00:00:00 03/2019 [facility] History of tobacco 2017-02-14 2018-04-03 Cigarette Smoker University of use 00:00:00 00:00:00 [facility] Sex [birth year] Universit y of 00:00:00 00:00:00 [facility] Smoking Status Start Date Stop Date Source Former smoker 2019-06-01 00:00:00 2019-06-01 00:00:00 [facility] Medications Ordered Filled Start Stop Current Ordering Indication Dosage Frequency Signature Comments Components Source Medication Medication Date Date Medication? Clinician (SIG) Name Name diltiazem 2020-10- Yes [id number] 180mg Take 1 Univers XR 180 mg 2-24 - capsule by ity of 24 hr 00:00: 05:59 mouth [place] capsule 00 :00 daily for Medical 30 days. Steffany diltiazem 2020-10- Yes [id number] 180mg Take 1 Univers XR 180 mg 2-24 - capsule by ity of 24 hr 00:00: 05:59 mouth [place] capsule 00 :00 daily for Medical 30 days. Steffany diltiazem 2020-10- Yes [id number] 180mg Take 1 Univers XR 180 mg 2-24 - capsule by ity of 24 hr 00:00: 05:59 mouth [place] capsule 00 :00 daily for Medical 30 days. Branch Hydrocodone 2020-10 Yes Take by Un kim -Acetaminop 2-23 mouth 2 ity o f hen 7.5-300 13:28: (two) [place] mg tablet 44 times Medical daily. Branch Hydrocodone 2020-10 Yes Take by Un kim -Acetaminop 2-23 mouth 2 ity o f hen 7.5-300 13:28: (two) [place] mg tablet 44 times Medical daily. Branch Hydrocodone 2020-10 Yes Take by Un kim -Acetaminop 2-23 mouth 2 ity o f hen 7.5-300 13:28: (two) [place] mg tablet 44 times Medical daily. Branch Fluticasone 2020-10 Yes [id number] 1{puff} Inhale 1 Univers -Salmeterol 2-23 Puff every it y of (ADVAIR 00:00: 12 [place] DISKUS) 00 (twelve) Medical 100-50 hours. Branch mcg/dose inhalation disk nitroglycer 2020-[id number] 1 Univers in 0.4 mg 2-23 tablet ity of sublingual 00:00: under the [place] tablet 00 tongue Medical every 5 Branch (five) minutes as needed for Chest pain. Fluticasone 2020-10 Yes [id number] 1{puff} Inhale 1 Univers -Salmeterol 2-23 Puff every it y of (ADVAIR 00:00: 12 [place] DISKUS) 00 (twelve) Medical 100-50 hours. Branch mcg/dose inhalation disk nitroglycer 2020-[id number] 1 Univers in 0.4 mg 2-23 tablet ity of sublingual 00:00: under the [place] tablet 00 tongue Medical every 5 Branch (five) minutes as needed for Chest pain. Fluticasone 2020-10 Yes [id number] 1{puff} Inhale 1 Univers -Salmeterol 2-23 Puff every it y of (ADVAIR 00:00: 12 [place] DISKUS) 00 (twelve) Medical 100-50 hours. Branch mcg/dose inhalation disk nitroglycer 2020-[id number] 1 Univers in 0.4 mg 2-23 tablet ity of sublingual 00:00: under the [place] tablet 00 tongue Medical every 5 Branch (five) minutes as needed for Chest pain. atorvastati 2020-10- Yes [id number] 20mg Take 2 Univers n 10 mg 2-23 01-23 tablets by ity o f tablet 00:00: 05:59 mouth at [place] 00 :00 bedtime Medical for 30 Branch days. magnesium 2020-10- Yes [id number] 400mg Take 400 Univers oxide 420 2-23 01-23 mg by ity of mg Tab 00:00: 05:59 mouth 2 [place] 00 :00 (two) Medical times Branch daily for 30 days. atorvastati 2020-10- Yes [id number] 20mg Take 2 Univers n 10 mg 2-23 01-23 tablets by ity o f tablet 00:00: 05:59 mouth at [place] 00 :00 bedtime Medical for 30 Branch days. magnesium 2020-10- Yes [id number] 400mg Take 400 Univers oxide 420 2-23 01-23 mg by ity of mg Tab 00:00: 05:59 mouth 2 [place] 00 :00 (two) Medical times Branch daily for 30 days. atorvastati 2020-10- Yes [id number] 20mg Take 2 Univers n 10 mg -08 11- tablets by ity o f tablet 00:00: 05:59 mouth at [place] 00 :00 bedtime Medical for 30 Branch days. magnesium 2020-10- Yes [id number] 400mg Take 400 Univers oxide 420 2-08 11-23 mg by ity of mg Tab 00:00: 05:59 mouth 2 [place] 00 :00 (two) Medical times Branch daily for 30 days. Hydrocodone 2020-10 Yes Take by Un kim -Acetaminop 2-21 mouth. ity of hen 7.5-300 13:33: [place] mg tablet 28 Medical Branch Hydrocodone 2020-10 Yes Take by Un kim -Acetaminop 2-21 mouth. ity of hen 7.5-300 13:33: [place] mg tablet Medical Branch Hydrocodone 2020-10 Yes Take by Un kim -Acetaminop 2-21 mouth. ity of hen 7.5-300 13:33: [place] mg tablet 28 Medical Branch apixaban 5 2020-10 Yes [id number] 5mg Take 1 Unive rs mg tablet 2-21 tablet by ity o f 00:00: mouth 2 (two) Medical times Branch daily. Indication s: atrial flutter metoprolol 2020-10 Yes [id number] 25mg Take 1 Un kim tartrate 25 2-21 tablet by ity of mg tablet 00:00: mouth 2 (two) Medical times Branch daily. apixaban 5 2020-10 Yes [id number] 5mg Take 1 Unive rs mg tablet 2-21 tablet by ity o f 00:00: mouth 2 (two) Medical times Branch daily. Indication s: atrial flutter metoprolol 2020-10 Yes [id number] 25mg Take 1 Un kim tartrate 25 2-21 tablet by ity of mg tablet 00:00: mouth 2 (two) Medical times Branch daily. apixaban 5 2020-10 Yes [id number] 5mg Take 1 Unive rs mg tablet 2-21 tablet by ity o f 00:00: mouth 2 (two) Medical times Branch daily. Indication s: atrial flutter metoprolol 2020-10 Yes [id number] 25mg Take 1 Un kim tartrate 25 2-21 tablet by ity of mg tablet 00:00: mouth (two) Medical times Branch daily. apixaban 5 2020-10 Yes [id number] 5mg Take 1 Unive rs mg tablet 2-21 tablet by ity o f 00:00: mouth (two) Medical times Branch daily. Indication s: atrial flutter metoprolol 2020-10 Yes [id number] 25mg Take 1 Un kim tartrate 25 2-21 tablet by ity of mg tablet 00:00: mouth (two) Medical times Branch daily. apixaban 5 2020-10 Yes [id number] 5mg Take 1 Unive rs mg tablet 2-21 tablet by ity o f 00:00: mouth (two) Medical times Branch daily. Indication s: atrial flutter metoprolol 2020-10 Yes [id number] 25mg Take 1 Un kim tartrate 25 2-21 tablet by ity of mg tablet 00:00: mouth (two) Medical times Branch daily. omeprazole 2020-10 Yes [id number] 40mg Take 1 U nivers 40 mg 2-20 capsule by ity of capsule 00:00: mouth (two) Medical times Branch daily. omeprazole 2020-10 Yes [id number] 40mg Take 1 U nivers 40 mg 2-20 capsule by ity of capsule 00:00: mouth (two) Medical times Branch daily. omeprazole 2020-10 Yes [id number] 40mg Take 1 U nivers 40 mg 2-20 capsule by ity of capsule 00:00: mouth (two) Medical times Branch daily. omeprazole 2020-10 Yes [id number] 40mg Take 1 U nivers 40 mg 2-20 capsule by ity of capsule 00:00: mouth (two) Medical times Branch daily. omeprazole 2020-10 Yes [id number] 40mg Take 1 U nivers 40 mg 2-20 capsule by ity of capsule 00:00: mouth (two) Medical times Branch daily. omeprazole 2020-10 Yes [id number] 40mg Take 1 U nivers 40 mg 2-20 capsule by ity of capsule 00:00: mouth (two) Medical times Branch daily. gabapentin 2020-10 Yes [id number] 300mg Take 1 Univers 300 mg 1-01 capsule by ity of capsule 00:00: mouth at [place] [address] bedtime. Medical Branch gabapentin 2020-10 Yes [id number] 300mg Take 1 Univers 300 mg 1-01 capsule by ity of capsule 00:00: mouth at [place] [address] bedtime. Medical Branch gabapentin 2020-10 Yes [id number] 300mg Take 1 Univers 300 mg 1-01 capsule by ity of capsule 00:00: mouth at [place] [address] bedtime. Medical Branch gabapentin 2020-10 Yes [id number] 300mg Take 1 Univers 300 mg 1-01 capsule by ity of capsule 00:00: mouth at [place] [address] bedtime. Medical Branch gabapentin 2020-10 Yes [id number] 300mg Take 1 Univers 300 mg 1-01 capsule by ity of capsule 00:00: mouth at [place] [address] bedtime. Medical Branch gabapentin 2020-10 Yes [id number] 300mg Take 1 Univers 300 mg 1-01 capsule by ity of capsule 00:00: mouth at [place] [address] bedtime. Medical Branch fluticasone 2020-10 Yes [id number] 2{spray Use 2 Univers propionate 0-01 } Sprays in ity of 50 00:00: each [place] mcg/actuati 00 nostril Medic al on nasal daily. Branch spray fluticasone 2020-10 Yes [id number] 2{spray Use 2 Univers propionate 0-01 } Sprays in ity of 50 00:00: each [place] mcg/actuati 00 nostril Medic al on nasal daily. Branch spray fluticasone 2020-10 Yes [id number] 2{spray Use 2 Univers propionate 0-01 } Sprays in ity of 50 00:00: each [place] mcg/actuati 00 nostril Medic al on nasal daily. Branch spray fluticasone 2020-10 Yes [id number] 2{spray Use 2 Univers propionate 0-01 } Sprays in ity of 50 00:00: each [place] mcg/actuati 00 nostril Medic al on nasal daily. Branch spray fluticasone 2020-10 Yes [id number] 2{spray Use 2 Univers propionate 0-01 } Sprays in ity of 50 00:00: each [place] mcg/actuati 00 nostril Medic al on nasal daily. Branch spray fluticasone 2020-10 Yes [id number] 2{spray Use 2 Univers propionate 0-01 } Sprays in ity of 50 00:00: each [place] mcg/actuati 00 nostril Medic al on nasal daily. Branch spray ELIQUIS 2.5 2020- No [id number] TAKE ONE Univers mg tablet 06-24 12-21 TABLET BY ity of 00:00: 00:00 MOUTH [place] 00 :00 TWICE A Medical DAY Branch cholestyram 2020- Yes [id number] 1{packe Take 1 Univers ine 4 gram 8-16 t} Packet by ity of packet 00:00: mouth 2 [place] 00 (two) Medical times Branch daily. cholestyram Yes [id number] 1{packe Take 1 Univers ine 4 gram 8-16 t} Packet by ity of packet 00:00: mouth 2 [place] (two) Medical times Branch daily. cholestyram Yes [id number] 1{packe Take 1 Univers ine 4 gram 8-16 t} Packet by ity of packet 00:00: mouth 2 [place] (two) Medical times Branch daily. cholestyram Yes [id number] 1{packe Take 1 Univers ine 4 gram 8-16 t} Packet by ity of packet 00:00: mouth 2 [place] 00 (two) Medical times Branch daily. cholestyram Yes [id number] 1{packe Take 1 Univers ine 4 gram 8-16 t} Packet by ity of packet 00:00: mouth 2 [place] 00 (two) Medical times Branch daily. cholestyram Yes [id number] 1{packe Take 1 Univers ine 4 gram 8-16 t} Packet by ity of packet 00:00: mouth 2 [place] 00 (two) Medical times Branch daily. omeprazole 2020- No [id number] 20mg Take 1 Univers 20 mg 8-16 12-20 capsule by ity of capsule 00:00: 00:00 mouth [place] 00 :00 daily. Medical Branch hydroCHLORO 2020-0 Yes [id number] 25mg Take 1 Univers thiazide 25 6-08 tablet by ity of mg tablet 00:00: mouth once [place] 00 daily as Medical needed Branch (edema). hydroCHLORO 2020-0 Yes [id number] 25mg Take 1 Univers thiazide 25 6-08 tablet by ity of mg tablet 00:00: mouth once [place] 00 daily as Medical needed Branch (edema). hydroCHLORO Yes [id number] 25mg Take 1 Univers thiazide 25 6-08 tablet by ity of mg tablet 00:00: mouth once [place] 00 daily as Medical needed Branch (edema). hydroCHLORO Yes [id number] 25mg Take 1 Univers thiazide 25 6-08 tablet by ity of mg tablet 00:00: mouth once [place] 00 daily as Medical needed Branch (edema). hydroCHLORO Yes [id number] 25mg Take 1 Univers thiazide 25 6-08 tablet by ity of mg tablet 00:00: mouth once [place] 00 daily as Medical needed Branch (edema). hydroCHLORO Yes [id number] 25mg Take 1 Univers thiazide 25 6-08 tablet by ity of mg tablet 00:00: mouth once [place] 00 daily as Medical needed Branch (edema). metFORMIN Yes [id number] TAKE ONE Univers 500 mg 3-25 TABLET BY ity of tablet 00:00: MOUTH [place] 00 EVERY Medical EVENING Branch WITH DINNER SERTraline Yes [id number] 100mg Take 1 Univers 100 mg 3-25 tablet by ity of tablet 00:00: mouth [place] 00 daily. Medical Branch tiZANidine Yes [id number] TAKE 1/2 Univers 4 mg tablet 3-25 TO 1 ity of 00:00: TABLET BY [place] 00 MOUTH Medical EVERY 8 Branch HOURS NEEDED FOR MUSCLE PAIN OR SPASM traZODone Yes [id number] 150mg Take 1 Univers 150 mg 3-25 tablet by ity of tablet 00:00: mouth at [place] 00 bedtime. Medical Branch fluticasone Yes [id number] 1{puff} Inhale 1 Univers propion-murray 3-25 Puff every it y of meteroL 00:00: 12 [place] (ADVAIR 00 (twelve) Medical DISKUS) hours. Branch 250-50 Rinse mcg/dose mouth inhalation after each disk use. diltiazem Yes [id number] 180mg Take 1 U nivers (CARTIA XT) 3-25 capsule by it y of 180 mg 24 00:00: mouth [place] hr capsule 00 daily. Medical Branch lovastatin Yes [id number] 20mg Take 1 U nivers 20 mg 3-25 tablet by ity of tablet 00:00: mouth [place] 00 daily. Medical Branch levothyroxi Yes [id number] 50ug Take 1 Univers ne 50 mcg 3-25 tablet by ity o f tablet 00:00: mouth [place] 00 every Medical morning. Branch metFORMIN Yes [id number] TAKE ONE Univers 500 mg 3-25 TABLET BY ity of tablet 00:00: MOUTH [place] 00 EVERY Medical EVENING Branch WITH DINNER SERTraline Yes [id number] 100mg Take 1 Univers 100 mg 3-25 tablet by ity of tablet 00:00: mouth [place] 00 daily. Medical Branch tiZANidine Yes [id number] TAKE 1/2 Univers 4 mg tablet 3-25 TO 1 ity of 00:00: TABLET BY [place] 00 MOUTH Medical EVERY 8 Branch HOURS NEEDED FOR MUSCLE PAIN OR SPASM traZODone Yes [id number] 150mg Take 1 Univers 150 mg 3-25 tablet by ity of tablet 00:00: mouth at [place] 00 bedtime. Medical Branch fluticasone Yes [id number] 1{puff} Inhale 1 Univers propion-murray 3-25 Puff every it y of meteroL 00:00: 12 [place] (ADVAIR 00 (twelve) Medical DISKUS) hours. Branch 250-50 Rinse mcg/dose mouth inhalation after each disk use. diltiazem Yes [id number] 180mg Take 1 U nivers (CARTIA XT) 3-25 capsule by it y of 180 mg 24 00:00: mouth [place] hr capsule 00 daily. Medical Branch lovastatin Yes [id number] 20mg Take 1 U nivers 20 mg 3-25 tablet by ity of tablet 00:00: mouth [place] 00 daily. Medical Branch levothyroxi Yes [id number] 50ug Take 1 Univers ne 50 mcg 3-25 tablet by ity o f tablet 00:00: mouth [place] 00 every Medical morning. Branch metFORMIN Yes [id number] TAKE ONE Univers 500 mg 3-25 TABLET BY ity of tablet 00:00: MOUTH [place] 00 EVERY Medical EVENING Branch WITH DINNER SERTraline Yes [id number] 100mg Take 1 Univers 100 mg 3-25 tablet by ity of tablet 00:00: mouth [place] 00 daily. Medical Branch tiZANidine Yes [id number] TAKE 1/2 Univers 4 mg tablet 3-25 TO 1 ity of 00:00: TABLET BY [address] EVERY 8 Branch HOURS NEEDED FOR MUSCLE PAIN OR SPASM traZODone Yes [id number] 150mg Take 1 Univers 150 mg 3-25 tablet by ity of tablet 00:00: mouth at [place] [address] bedtime. Medical Branch fluticasone Yes [id number] 1{puff} Inhale 1 Univers propion-murray 3-25 Puff every it y of meteroL 00:00: 12 [place] (ADVAIR 00 (twelve) Medical DISKUS) hours. Branch 250-50 Rinse mcg/dose mouth inhalation after each disk use. diltiazem Yes [id number] 180mg Take 1 U nivers (CARTIA XT) 3-25 capsule by it y of 180 mg 24 00:00: mouth [place] hr capsule 00 daily. Medical Branch lovastatin Yes [id number] 20mg Take 1 U nivers 20 mg 3-25 tablet by ity of tablet 00:00: mouth [place] 00 daily. Medical Branch levothyroxi Yes [id number] 50ug Take 1 Univers ne 50 mcg 3-25 tablet by ity o f tablet 00:00: mouth [place] 00 every Medical morning. Branch metFORMIN Yes [id number] TAKE ONE Univers 500 mg 3-25 TABLET BY ity of tablet 00:00: MOUTH [place] 00 EVERY Medical EVENING Branch WITH DINNER SERTraline Yes [id number] 100mg Take 1 Univers 100 mg 3-25 tablet by ity of tablet 00:00: mouth [place] 00 daily. Medical Branch tiZANidine Yes [id number] TAKE 1/2 Univers 4 mg tablet 3-25 TO 1 ity of 00:00: TABLET BY [address] EVERY 8 Branch HOURS NEEDED FOR MUSCLE PAIN OR SPASM traZODone Yes [id number] 150mg Take 1 Univers 150 mg 3-25 tablet by ity of tablet 00:00: mouth at [place] [address] bedtime. Medical Branch levothyroxi Yes [id number] 50ug Take 1 Univers ne 50 mcg 3-25 tablet by ity o f tablet 00:00: mouth [place] 00 every Medical morning. Branch metFORMIN Yes [id number] TAKE ONE Univers 500 mg 3-25 TABLET BY ity of tablet 00:00: MOUTH [place] 00 EVERY Medical EVENING Branch WITH DINNER SERTraline Yes [id number] 100mg Take 1 Univers 100 mg 3-25 tablet by ity of tablet 00:00: mouth [place] 00 daily. Medical Branch tiZANidine Yes [id number] TAKE 1/2 Univers 4 mg tablet 3-25 TO 1 ity of 00:00: TABLET BY [place] 00 [facility] Medical EVERY 8 Branch HOURS NEEDED FOR MUSCLE PAIN OR SPASM traZODone Yes [id number] 150mg Take 1 Univers 150 mg 3-25 tablet by ity of tablet 00:00: mouth at [place] 00 bedtime. Medical Branch levothyroxi Yes [id number] 50ug Take 1 Univers ne 50 mcg 3-25 tablet by ity o f tablet 00:00: mouth [place] 00 every Medical morning. Branch metFORMIN 0 Yes [id number] TAKE ONE Univers 500 mg 3-25 TABLET BY ity of tablet 00:00: MOUTH [place] 00 EVERY Medical EVENING Branch WITH DINNER SERTraline Yes [id number] 100mg Take 1 Univers 100 mg 3-25 tablet by ity of tablet 00:00: mouth [place] 00 daily. Medical Branch tiZANidine Yes [id number] TAKE 1/2 Univers 4 mg tablet 3-25 TO 1 ity of 00:00: TABLET BY [address] EVERY 8 Branch HOURS NEEDED FOR MUSCLE PAIN OR SPASM traZODone 0 Yes [id number] 150mg Take 1 Univers 150 mg 3-25 tablet by ity of tablet 00:00: mouth at [place] 00 bedtime. Medical Branch levothyroxi Yes [id number] 50ug Take 1 Univers ne 50 mcg 3-25 tablet by ity o f tablet 00:00: mouth [place] 00 every Medical morning. Branch losartan 2020-0 2020- No [id number] 100mg Take 1 U nivers 100 mg 3-25 12-21 tablet by ity of tablet 00:00: 00:00 mouth [place] 00 :00 daily. Medical Branch ipratropium 2019-10 Yes [id number] .5mg Inhale 2.5 Univers 0.02 % 1-20 mL every 4 ity of nebulizer 00:00: (four) [place] solution 00 hours as Medical needed for Branch Wheezing or Shortness of Breath. ipratropium 2020-1 Yes [id number] .5mg Inhale 2.5 Univers 0.02 % 1-20 mL every 4 ity of nebulizer 00:00: (four) [place] solution 00 hours as Medical needed for Branch Wheezing or Shortness of Breath. ipratropium 2020-1 Yes [id number] .5mg Inhale 2.5 Univers 0.02 % 1-20 mL every 4 ity of nebulizer 00:00: (four) [place] solution 00 hours as Medical needed for Branch Wheezing or Shortness of Breath. albuterol 2019-0 Yes [id number] 2{puff} Inhale 2 Univers (PROAIR 8-19 Puffs ity of HFA) 90 00:00: every 6 [place] mcg/actuati 00 (six) Medical on inhaler hours as Branc h needed for Wheezing or Shortness of Breath. albuterol 2019-0 Yes [id number] 2{puff} Inhale 2 Univers (PROAIR 8-19 Puffs ity of HFA) 90 00:00: every 6 [place] mcg/actuati 00 (six) Medical on inhaler hours as Branc h needed for Wheezing or Shortness of Breath. albuterol 2019-0 Yes [id number] 2{puff} Inhale 2 Univers (PROAIR 8-19 Puffs ity of HFA) 90 00:00: every 6 [place] mcg/actuati 00 (six) Medical on inhaler hours as Branc h needed for Wheezing or Shortness of Breath. albuterol 2020-0 Yes [id number] 2{puff} Inhale 2 Univers (PROAIR 8-19 Puffs ity of HFA) 90 00:00: every 6 [place] mcg/actuati 00 (six) Medical on inhaler hours as Branc h needed for Wheezing or Shortness of Breath. albuterol 2020-0 Yes [id number] 2{puff} Inhale 2 Univers (PROAIR 8-19 Puffs ity of HFA) 90 00:00: every 6 [place] mcg/actuati 00 (six) Medical on inhaler hours as Branc h needed for Wheezing or Shortness of Breath. albuterol Yes [id number] 2{puff} Inhale 2 Univers (PROAIR 8-19 Puffs ity of HFA) 90 00:00: every 6 [place] mcg/actuati 00 (six) Medical on inhaler hours as Branc h needed for Wheezing or Shortness of Breath. albuterol 2016-10 Yes [id number] 2.5mg Inhale 3 Univers 2.5 mg /3 2-20 mL every 4 ity of mL (0.083 00:00: (four) [place] %) 00 hours as Medical nebulizer needed for Bran ch solution Wheezing or Shortness of Breath. albuterol 2016-10 Yes [id number] 2.5mg Inhale 3 Univers 2.5 mg /3 2-20 mL every 4 ity of mL (0.083 00:00: (four) [place] %) 00 hours as Medical nebulizer needed for Bran ch solution Wheezing or Shortness of Breath. albuterol 2016-10 Yes [id number] 2.5mg Inhale 3 Univers 2.5 mg /3 2-20 mL every 4 ity of mL (0.083 00:00: (four) [place] %) 00 hours as Medical nebulizer needed for Bran ch solution Wheezing or Shortness of Breath. Immunizations Ordered Filled Immunization Date Status Comments [facility] Immunization Name Name Influenza Virus 2021-08-17 Completed Universit y of Vaccine,quad 00:00:00 [place] [facility] Branch 65+ Influenza Virus 2021-08-17 Completed Universit y of Vaccine,quad 00:00:00 [place] [facility] Free [facility] 65+ Influenza Virus 2021-08-17 Completed Universit y of Vaccine,quad 00:00:00 [place] [facility],preserve Free Branch 65+ Influenza Virus 2021-08-17 Completed Universit y of Vaccine,quad 00:00:00 [place] [facility],preserve Free Branch 65+ Influenza Virus 2021-08-17 Completed Universit y of Vaccine,quad 00:00:00 [place] [facility],preserve Free Branch 65+ Influenza Virus 2021-08-17 Completed Universit y of Vaccine,quad 00:00:00 [place] [facility],preserve Free Branch 65+ SARS-COV-2 COVID-19 2021-07-20 Completed Unive rsity of PFIZER VACCINE 00:00:00 [facility] [place] [facility] Branch SARS-COV-2 COVID-19 2021-07-20 Completed Unive rsity of PFIZER VACCINE 00:00:00 [facility] [place] [facility] Branch SARS-COV-2 COVID-19 2021-07-20 Completed Unive rsity of PFIZER VACCINE 00:00:00 [facility] [place] [facility] Branch SARS-COV-2 COVID-19 2021-07-20 Completed Unive rsity of PFIZER VACCINE 00:00:00 [facility] [place] [facility] Branch SARS-COV-2 COVID-19 2021-07-20 Completed Unive rsity of PFIZER VACCINE 00:00:00 [facility] [place] [facility] Branch SARS-COV-2 COVID-19 2021-07-20 Completed Unive rsity of PFIZER VACCINE 00:00:00 [facility] [place] [facility] Branch SARS-COV-2 COVID-19 2020-12-29 Completed Unive rsity of PFIZER VACCINE 00:00:00 [facility] [place] [facility] Branch SARS-COV-2 COVID-19 2020-12-29 Completed Unive rsity of PFIZER VACCINE 00:00:00 [facility] [place] [facility] Branch SARS-COV-2 COVID-19 2020-12-29 Completed Unive rsity of PFIZER VACCINE 00:00:00 [facility] [place] [facility] Branch SARS-COV-2 COVID-19 2020-12-29 Completed Unive rsity of PFIZER VACCINE 00:00:00 [facility] [place] [facility] Branch SARS-COV-2 COVID-19 2020-12-29 Completed Unive rsity of PFIZER VACCINE 00:00:00 [facility] [place] [facility] Branch SARS-COV-2 COVID-19 2020-12-29 Completed Unive rsity of PFIZER VACCINE 00:00:00 [facility] [place] [facility] Branch SARS-COV-2 COVID-19 2020-12-08 Completed Unive rsity of PFIZER VACCINE 00:00:00 [facility] [place] [facility] Branch SARS-COV-2 COVID-19 2020-12-08 Completed Unive rsity of PFIZER VACCINE 00:00:00 [facility] [place] [facility] Branch SARS-COV-2 COVID-19 2020-12-08 Completed Unive rsity of PFIZER VACCINE 00:00:00 [facility] [place] [facility] Branch SARS-COV-2 COVID-19 2020-12-08 Completed Unive rsity of PFIZER VACCINE 00:00:00 [place] [facility] SARS-COV-2 COVID-19 2020-12-08 Completed Unive rsity of PFIZER VACCINE 00:00:00 [facility] SARS-COV-2 COVID-19 2020-12-08 Completed Unive rsity of PFIZER VACCINE 00:00:00 [facility] Zoster Vaccine 2019-12-19 Completed University of Recombinant 00:00:00 [facility] Zoster Vaccine 2019-12-19 Completed University of Recombinant 00:00:00 [facility] Zoster Vaccine 2019-12-19 Completed University of Recombinant 00:00:00 [facility] Zoster Vaccine 2019-12-19 Completed University of Recombinant 00:00:00 [facility] Zoster Vaccine 2019-12-19 Completed University of Recombinant 00:00:00 [facility] Zoster Vaccine 2019-12-19 Completed University of Recombinant 00:00:00 [facility] Influenza High Dose 2019-08-08 Completed Unive rsity of 00:00:00 [facility] Zoster Vaccine 2019-08-08 Completed University of Recombinant 00:00:00 [facility] Influenza High Dose 2019-08-08 Completed Unive rsity of 00:00:00 [facility] Zoster Vaccine 2019-08-08 Completed University of Recombinant 00:00:00 [facility] Influenza High Dose 2019-08-08 Completed Unive rsity of 00:00:00 [facility] Zoster Vaccine 2019-08-08 Completed University of Recombinant 00:00:00 [facility] Influenza High Dose 2019-08-08 Completed Unive rsity of 00:00:00 [facility] Zoster Vaccine 2019-08-08 Completed University of Recombinant 00:00:00 [facility] Influenza High Dose 2019-08-08 Completed Unive rsity of 00:00:00 [facility] Zoster Vaccine 2019-08-08 Completed University of Recombinant 00:00:00 [facility] Influenza High Dose 2019-08-08 Completed Unive rsity of 00:00:00 [facility] Zoster Vaccine 2019-08-08 Completed University of Recombinant 00:00:00 [facility] Influenza High Dose 2018-08-14 Completed Unive rsity of 00:00:00 [facility] Influenza High Dose 2018-08-14 Completed Unive rsity of 00:00:00 [facility] Influenza High Dose 2018-08-14 Completed Unive rsity of 00:00:00 [facility] Influenza High Dose 2018-08-14 Completed Unive rsity of 00:00:00 [facility] Influenza High Dose 2018-08-14 Completed Unive rsity of 00:00:00 [facility] Influenza High Dose 2018-08-14 Completed Unive rsity of 00:00:00 [facility] Pneumococcal 13 2016-12-07 Completed Universit y of Conjugate, PCV13 00:00:00 [facility] dical (Prevnar 13) Branch Pneumococcal 13 2016-12-07 Completed Universit y of Conjugate, PCV13 00:00:00 [place] [facility] dical (Prevnar 13) Branch Pneumococcal 13 2016-12-07 Completed Universit y of Conjugate, PCV13 00:00:00 [place] Me dical (Prevnar 13) Branch Pneumococcal 13 2016-12-07 Completed Universit y of Conjugate, PCV13 00:00:00 [place] [facility] dical (Prevnar 13) Branch Pneumococcal 13 2016-12-07 Completed Universit y of Conjugate, PCV13 00:00:00 [facility] dical (Prevnar 13) Branch Pneumococcal 13 2016-12-07 Completed Universit y of Conjugate, PCV13 00:00:00 [place] [facility] dical (Prevnar 13) Branch Pneumococcal 2012-10-17 Completed University o f Polysaccharide, 00:00:00 [place] Med ical PPSV23 (PNEUMOVAX) Branch Pneumococcal 2012-10-17 Completed University o f Polysaccharide, 00:00:00 [place] Med ical PPSV23 (PNEUMOVAX) Branch Pneumococcal 2012-10-17 Completed University o f Polysaccharide, 00:00:00 [place] [facility] ical PPSV23 (PNEUMOVAX) Branch Pneumococcal 2012-10-17 Completed University o f Polysaccharide, 00:00:00 [place] Med ical PPSV23 (PNEUMOVAX) Branch Pneumococcal 2012-10-17 Completed University o f Polysaccharide, 00:00:00 [place] Med ical PPSV23 (PNEUMOVAX) Branch Pneumococcal 2012-10-17 Completed University o f Polysaccharide, 00:00:00 [place] [facility] ical PPSV23 (PNEUMOVAX) Branch Vital Signs Vital Name Observation Time Observation Value Comments Source Systolic blood 2021-10-05 19:48:00 138 mm[Hg] Univer sity of pressure [facility] Diastolic blood 2021-10-05 19:48:00 70 mm[Hg] Unive rsity of pressure [facility] Heart rate 2021-10-05 19:48:00 119 /min [facility] Body temperature 2021-10-05 19:48:00 [facility].94 [facility] 2021-10-05 19:48:00 152.4 cm [facility] Body weight 2021-10-05 19:48:00 83.734 kg [facility] BMI 2021-10-05 19:48:00 36.05 kg/m2 [facility] Oxygen saturation in 2021-10-05 19:48:00 93 /min [facility] Arterial blood by [facility] [place] [facility] Pulse oximetry [place] Procedures This patient has no known procedures. Encounters Start End Encounter Admission Attending Care Care Encounter Source Date/Time Date/Time Type Type Clinicians Facility Department ID 2021-11-09 2021-11-09 Outpatient R ERYN [facility] [id number] Univers 13:20:00 13:20:00 ANAY amadory o f [facility] 2021-11-03 2021-11-03 Outpatient R [facility] [id number] Univers 12:30:00 12:30:00 [id number] ity of [facility] 2021-10-13 2021-10-13 [facility] [id number] Univers 00:00:00 00:00:00 Wondiful A HEALTH [id number] ity of [place] [id number] Usama as LETICIA?BLEA [phone] [place] guy NATHANEY [address]44 [place] MEDICAL OFFICE BUILDING 2021-10-12 2021-10-12 Telephone Eryn [facility] [id number] Univers 00:00:00 00:00:00 Anay LENNOXHARRIET [id number] ity [id number] [phone] [place] guy HUSSEIN 059 Branch BUILDING 2021-10-12 2021-10-12 Transition RAGHU Maxwell [id number] Univers 00:00:00 00:00:00 of Care Ana Paula B JOHANSEN [id number] [id number] [phone] [facility] 403 Branch 2021-10-07 2021-10-08 Outpatient X CANDY [facility] [place] [id number] Univers 12:50:00 12:45:00 LEX ity of [facility] 2021-10-07 2021-10-07 Nurse JORDON Manuel [id number] Univers 00:00:00 00:00:00 Triage Xiaogerson CABALLERO [id number] i ty of [facility] [id number] [place] [phone] [facility] 019 Branch 2021-10-07 2021-10-07 Telephone Eryn [facility] [id number] Univers 00:00:00 00:00:00 Anay MARTEL [id number] ity [facility] [id number] [phone] [place] dical [facility] 059 Branch BUILDING 2021-10-05 2021-10-05 Office Brady [facility] [id number] Univers 13:45:00 14:15:00 Visit [facility] [id number] it y of [id number] - [phone] Med ical [facility] 144 Branch Results This patient has no known results.
--- NOTE | 2021-10-13 14:02 | ER ---
Nurse's Notes [facility] Name: Chacha Valerio Age: 76 yrs Sex: Female : 1945 Arrival Date: 10/13/2021 Time: 12:42 Bed Waiting Private MD: Diagnosis: ED Course: 10/13 12:42 Patient arrived in ED. ds1 14:01 Patient's name was called from ER lobby. No response. Unable to locate patient. Will jh5 disposition as left without being seen by a provider. Administered Medications: No medications were administered Outcome: 14:01 Patient left the ED. jh5 Signatures: Sapna Romero ds1 Lela Clinton RN RN jh5
== END 2021-10-13 14:01 | disposition left against medical advice (07) ==
LOC: ER 12:39
DX: Z02.9 Encounter for administrative examinations, unspecified (principal)

== ENCOUNTER 2024-11-29 19:21 | Emergency (ER) | payer OTHER, BC ==
--- NOTE | 2024-11-29 20:12 | EDPHYS ---
Physician Documentation [facility] Name: Chacha Valerio Age: 79 yrs Sex: Female : 1945 Arrival Date: 11/29/2024 Time: 19:21 Bed Waiting Private MD: MELISSA Physician Modesto Joyce HPI: 11/29 19:59 This 79 yrs old Female presents to ER via Unassigned with complaints of Flu sp4 Symptoms. 20:10 Patient left from the waiting area prior to MD examination. sp4 MDM: 20:00 Medical Screening Exam initiated sp4 Administered Medications: No medications were administered Disposition Summary: 11/29/24 20:11 Eloped Notes: Disposition: before being seen by provider sp4 Reason: (see nurse's notes) sp4 Diagnosis - Flulike illness sp4 Followup: sp4 - With: Private Physician - When: As needed - Reason: Re-evaluation by your physician Signatures: Dispatcher [employer] Modesto Beaver MD MD sp4
--- NOTE | 2024-11-29 20:12 | ER ---
Nurse's Notes [facility] Name: Chacha Valerio Age: 79 yrs Sex: Female : 1945 Arrival Date: 11/29/2024 Time: 19:21 Bed Waiting Private MD: Diagnosis: Flulike illness Assessment: 11/29 20:06 Reassessment: pt not in lobby , told registration she could not wait. ED Course: 19:25 Patient arrived in ED. ra3 19:59 Mod[place] Joyce MD is Attending Physician. sp4 Administered Medications: No medications were administered Outcome: 20:12 Patient left the ED. Signatures: Asmita Chinchilla RN RN iw Modesto Joyce MD MD sp4 Becky Beaver ra3
== END 2024-11-29 20:12 | disposition left against medical advice (07) ==
LOC: ER 19:21
DX: Z02.9 Encounter for administrative examinations, unspecified (principal)